=== PATIENT | female | born 1970 | race Caucasian/White ===

== ENCOUNTER 2020-05-11 01:02 | Outpatient (CLI) | payer MEDICARE, SELFPAY ==
[2020-05-11 18:37] LABS: SARS-CoV-2 RNA PCR Negative
== END 2020-05-11 01:03 | disposition home or self-care (01) ==
LOC: ANHCOVIDDT 01:03
PROVIDERS: PCP Internal Medicine Gastroenterology; Visit Provider Physical Medicine & Rehabilitation Pain Medicine
DX: Z01.812 Encounter for preprocedural laboratory examination (principal); Z20.828 Contact with and (suspected) exposure to other viral communicable diseases
CPT/HCPCS: 87635; C9803; U0003

== ENCOUNTER 2020-05-14 09:21 | Outpatient (CLI) | payer MEDICARE, SELFPAY ==
[2020-05-10 12:32] VITALS: BMI 36.6
--- NOTE | ~2020-05-14 | CT_ITS ---
EXAMINATION: 1. XR myelogram spine lumbosacral 2. CT lumbar spine w con DATE: 05/14/2020 11:11 INDICATION: Lumbar radiculopathy. Surgical staging. TECHNIQUE: The procedure including the risks, benefits, and alternatives was discussed with the patie nt. Risks discussed included spinal headache, cerebrospinal fluid leak, bleeding, and infection. The patient understood the risks and agreed to proceed. A timeout was performed to verify the patient' s name, date of , and procedure to be performed. The skin overlying the L2-L3 and L3-L4 levels was prepped and draped in usual sterile fashion. Subcutaneous 1% lidocaine was used for local anesth esia. A 22 gauge spinal needle was advanced under fluoroscopic guidance. The needle was removed and the entry site was cleaned and dressed. There were no immediate complications. Fluoroscopy exposure time was 0.4 minutes. The total number of images was 6. Computed tomography (CT) of the lumbar spine was performed without intravenous contrast. Automated exposure control and iterative reconstruction t echnique were employed. The dose-length product was 1909.85 mGy-cm. COMPARISON: Lumbar spine CT 12/29/2016, MRI 01/03/2016 FINDINGS: LUMBAR MYELOGRAM: Images demonstrate the needle at the L3-L4 level. There is indentation of the theca l sac at multiple disc levels which will be discussed in more detail on the postmyelogram CT. POST-MYELOGRAM LUMBAR SPINE CT: Bone alignment is normal. Vertebral body heights are normal. There is mildly decreased disc height at L3-L4. The following disc levels are specifically discussed: L1-L2: The disc does not extend beyond the endplate margin. There is mild bilateral facet joint osteo arthritis. There is no neural foraminal stenosis. There is no central canal stenosis. L2-L3: The disc does not extend beyond the endplate margin. There is mild bilateral facet joint osteo arthritis. There is no neural foraminal stenosis. There is no central canal stenosis. L3-L4: The disc is bulging. There is mild bilateral facet joint osteoarthritis. There is mild bilater al neural foraminal stenosis. There is mild central canal stenosis. L4-L5: The disc is bulging. There is mild bilateral facet joint osteoarthritis. There is mild bilater al neural foraminal stenosis. There is mild central canal stenosis. L5-S1: The disc is bulging. There is severe right and moderate left facet joint osteoarthritis. There is mild bilateral neural foraminal stenosis. There is mild central canal stenosis. IMPRESSION: 1. Mild lumbar spondylosis, stable from 01/03/2016. Reviewed, dictated and finalized at location A. IMPRESSION: 1. Mild lumbar spondylosis, stable from 01/03/2016.
[2020-05-14 09:49] LABS: Mean Platelet Volume 8.6 fl (7.4-10.4); Platelet Count Result 326 k/mm3 (150-375)
[2020-05-14 09:58] LABS: INR 0.9; Prothrombin Time 12.3 Seconds (11.1-14.7)
[2020-05-14 10:20] VITALS: BP 114/82; PULSE 83; RESP 20; O2SAT 98
[2020-05-14 10:45] VITALS: BP 124/80; PULSE 86; RESP 18; O2SAT 100
[2020-05-14 11:10] VITALS: BP 125/84; PULSE 77; RESP 20; O2SAT 100
[2020-05-14 12:10] VITALS: BP 131/79; PULSE 63; RESP 20; O2SAT 100
== END 2020-05-14 12:50 | disposition home or self-care (01) ==
PROVIDERS: Radiology Diagnostic Radiology; PCP Internal Medicine Gastroenterology; Visit Provider Physical Medicine & Rehabilitation Pain Medicine
DX: M54.16 Radiculopathy, lumbar region (principal)
CPT/HCPCS: 36415; 62304; 72132; 85049; 85610

== ENCOUNTER 2020-07-12 08:04 | Outpatient (CLI) | payer MEDICARE, SELFPAY ==
--- NOTE | ~2020-07-12 | XR_ITS ---
EXAMINATION: XR lumbar spine 2-3V EXAM DATE: 07/12/2020 08:40 INDICATION: Arthralgia, Hx Of Lower Back Injury X10 Yrs Ago. TECHNIQUE: Lumber spine frontal, lateral, lateral L5-S1 projections for interpretation. There is no prior study for comparison. FINDINGS: Gastric banding device. The vertebral bodies are aligned in the AP dimension. Vertebral daniel dy and disc heights are well-maintained. Mild diffuse facet arthropathy. Calcifications in the pelvis are believed to be phleboliths. IMPRESSION: Mild lumbar facet arthropathy. Reviewed, dictated and finalized at location A. MOLD COATER
--- NOTE | ~2020-07-12 | XR_ITS ---
EXAMINATION: XR hand LT 2V EXAM DATE: 07/12/2020 08:40 INDICATION: Arthralgia. Left hand pain. TECHNIQUE: Left hand frontal, lateral projections obtained and reviewed. Correlation is made to contr alateral hand same date. FINDINGS: Left metacarpal bones are unremarkable. There are no acute left hand fractures or dislocat ions identified. There is no subcutaneous gas. The soft tissue is unremarkable. There are no radi opaque foreign bodies. There are no bony erosions identified. IMPRESSION: 1. Unremarkable XR hand LT 2V exam. Reviewed, dictated and finalized at location A. 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
--- NOTE | ~2020-07-12 | XR_ITS ---
EXAMINATION: XR hand RT 2V EXAM DATE: 07/12/2020 08:40 INDICATION: Right hand arthralgia. TECHNIQUE: Frontal and lateral projections of the right hand. There is no prior study for compariso n. FINDINGS: There are no bony erosions identified. There are no acute right hand fractures or dislocat ions identified. There is no subcutaneous gas. The soft tissue is unremarkable. There are no radi opaque foreign bodies. IMPRESSION: 1. Unremarkable XR hand RT 2V exam. Reviewed, dictated and finalized at location A. 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
== END 2020-07-12 08:05 | disposition home or self-care (01) ==
LOC: ANHIMG 08:10
PROVIDERS: PCP Internal Medicine Gastroenterology; Visit Provider Physician Assistant Medical
DX: M54.5 Low back pain (principal); M25.542 Pain in joints of left hand; M25.541 Pain in joints of right hand
CPT/HCPCS: 72100; 73120

== ENCOUNTER → 2020-12-11 11:10 | Outpatient (CLI) | payer OTHER, MEDICARE, SELFPAY ==
--- NOTE | ~2020-12-11 | US_ITS ---
EXAMINATION: US renal BI DATE: 12/11/2020 12:05 INDICATION: Abnormal renal function. TECHNIQUE: Multiple ultrasound grayscale images of the kidneys were obtained. COMPARISON: Lumbar spine CT dated 05/14/2020 FINDINGS: The right kidney measures 11.4 x 4.1 x 4.5 cm. There is a duplicated right renal collecting system be tter appreciated on CT dated 05/14/2020 were there appears to be fusion adnexa renal pelvis . The left kidney measures 9.4 x 5.3 x 5.0 cm. The kidneys demonstrate normal echogenicity. There is no hydrone phrosis in either kidney. No stones identified. The bladder is normal. IMPRESSION: 1. 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 Otherwise normal kidneys without hydronephrosis. Reviewed, dictated and finalized at location A. IMPRESSION: 1. 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 Otherwise normal kidneys without hydronephrosis.
== END ==
PROVIDERS: PCP Internal Medicine Gastroenterology; Visit Provider Internal Medicine Nephrology
DX: R94.4 Abnormal results of kidney function studies (principal)
CPT/HCPCS: 76775

== ENCOUNTER → 2021-02-06 08:53 | Outpatient (CLI) | payer OTHER, MEDICARE, SELFPAY ==
--- NOTE | ~2021-02-06 | XR_ITS ---
XR finger 2nd RT min 2V DATE: 02/06/2021 09:27 INDICATION: Injury, pain TECHNIQUE: 4 views COMPARISON: 07/12/2020 right hand FINDINGS: No fracture or dislocation, periosteal reaction or bone destruction, radiopaque soft tissue foreign body. IMPRESSION: Negative Reviewed, dictated and finalized at location A. IMPRESSION: Negative
--- NOTE | ~2021-02-06 | XR_ITS ---
EXAMINATION: XR chest 2V 02/06/2021 09:27 INDICATION: Cough PROCEDURE: 2 view chest COMPARISON: No prior studies for comparison. FINDINGS: The lungs are clear. The cardiomediastinal silhouette is within normal limits. There are no pleural effusions. There is no pneumothorax suspected. IMPRESSION: 1: NO ACUTE CARDIOPULMONARY DISEASE. Reviewed, dictated and finalized at location A.
== END ==
PROVIDERS: Visit Provider Internal Medicine Gastroenterology
DX: R05 Cough (principal); S69.81XA Other specified injuries of right wrist, hand and finger(s), initial encounter
CPT/HCPCS: 71046; 73140

== ENCOUNTER 2021-11-07 09:05 | Outpatient (CLI) | payer MEDICARE, OTHER, SELFPAY ==
--- NOTE | ~2021-11-07 | XR_ITS ---
EXAMINATION: XR chest 2V 11/07/2021 09:23 INDICATION: Shortness of breath PROCEDURE: 2 view chest COMPARISON: 02/06/2021 FINDINGS: The lungs are clear. The cardiomediastinal silhouette is within normal limits. There are no pleural effusions. There is no pneumothorax suspected. IMPRESSION: 1: NO ACUTE CARDIOPULMONARY DISEASE. Reviewed, dictated and finalized at location B.
== END 2021-11-07 09:06 | disposition home or self-care (01) ==
LOC: ANHIMG 09:09
PROVIDERS: PCP Internal Medicine Gastroenterology; Visit Provider Internal Medicine Gastroenterology
DX: R06.00 Dyspnea, unspecified (principal)
CPT/HCPCS: 71046

== ENCOUNTER 2021-11-14 08:20 | Emergency (ER) | payer OTHER, MEDICARE, SELFPAY ==
[2021-11-14] VITALS (14 sets, daily range): BP systolic 107–112; BP diastolic 72–86; PULSE 93–111; RESP 14–29; TEMP 36.4; O2SAT 100
--- NOTE | ~2021-11-14 | CT_ITS ---
EXAMINATION: CT brain wo con INDICATION: Dizziness COMPARISON: 07/24/2017 TECHNIQUE: Standard unenhanced head CT. The dose-length product (DLP) was 605.33 mGy-cm. The mA was a djusted according to patient size. Iterative reconstruction technique was employed. FINDINGS: There is no intracranial hemorrhage, acute infarction, or abnormal mass lesion. The ventric les are normal. There is no abnormal mass effect or midline shift. The rondon-white matter differentiat ion is normal. The basal cisterns are patent. The orbits are normal. The paranasal sinuses, mastoids and calvarium are normal. IMPRESSION: 1. No acute intracranial abnormality. Reviewed, dictated and finalized at location B.
--- NOTE | ~2021-11-14 | CT_ITS ---
EXAMINATION: CTA chest PE protocol DATE: 11/14/2021 10:13 INDICATION: Shortness of breath. Elevated d-dimer. TECHNIQUE: Computed tomography angiography (CTA) of the chest was performed with 100 mL Omnipaque-350 intravenous contrast timed to evaluate the pulmonary arteries. Coronal maximum intensity projection 3D-reconstructions were created by the technologist. Automated exposure control and iterative reconst ruction technique were employed. Exam dose: 644.21 mGy-cm total exam DLP. COMPARISON: 11/14/2021 AP and lateral chest FINDINGS: There is diagnostic contrast enhancement of the pulmonary arteries and no evidence of pulmo nary embolism. No thoracic aortic aneurysm or dissection. No hilar or mediastinal mass lesion or lymphadenopathy. No pulmonary infiltrate or consolidation or pulmonary mass lesion. Adrenal glands and included upper abdominal structures are unremarkable with the exception of a lap b and. Degenerative spurring of the thoracic spine. No suspicious osteolytic or osteoblastic lesions. IMPRESSION: No evidence of pulmonary embolus Reviewed, dictated and finalized at Location A. Reviewed, dictated and finalized at location A.
--- NOTE | ~2021-11-14 | XR_ITS ---
EXAMINATION: XR chest 2V DATE: 11/14/2021 09:03 INDICATION: Shortness of breath, cough and dizziness TECHNIQUE: frontal and lateral views of the chest were obtained. COMPARISON: Chest radiograph dated 11/07/2021 FINDINGS: The lungs remain clear with no focal airspace opacities, pulmonary edema, pleural effusion or pneumot horax. The cardiomediastinal silhouette is normal. Mild thoracic spondylosis. IMPRESSION: 1. No acute cardiopulmonary disease. Reviewed, dictated and finalized at location A.
--- NOTE | 2021-11-14 08:43 | ECG_ITS ---
Measurements Intervals [place] Rate: 97 P: 43 [place]: 156 QRS: 8 QRSD: 92 T: 10 QT: 359 QTc: 458 Interpretive Statements SINUS RHYTHM NONSPECIFIC T-WAVE ABNORMALITY. ABNORMAL ECG NO PREVIOUS ECG AVAILABLE FOR COMPARISON Electronically Signed On 11-14-2021 16:21:26 CDT by Lalo Bernard M.D.
[2021-11-14 09:00] LABS: Basophils Percent Auto 0.2 % (0.2-1.2); Eosinophils Absolute Auto 0.1 K/mm3 (0-0.3); Eosinophils Percent Auto 0.9 % (0-4.4); Hematocrit 38.4 % (37.0-47.0); Immature Granulocyte Absolute 0.04 K/mm3 (0.00-0.031); Immature Granulocyte Percent A 0.5 % (0-0.5); Lymphocytes Absolute Auto 1.38 K/mm3 (0.9-3.2); Lymphocytes Percent Auto 16.8 % (18.3-44.2); Mean Corpuscular HGB Conc 33.9 g/dl (32-36); Mean Corpuscular Volume 91.6 fl (80-100); Mean Platelet Volume 8.6 fl (7.4-10.4); Monocytes Absolute Auto 0.7 K/mm3 (0.1-0.6); Monocytes Percent Auto 8.6 % (2.6-8.5); Platelet Count Result 330 k/mm3 (150-375); Red Blood Count 4.19 M/mm3 (4.2-5.4); Red Cell Distribution Width 13.1 % (11.5-14.5); White Blood Count 8.2 K/mm3 (4.5-10.0)
[2021-11-14 09:20] LABS: Alanine Aminotransferase 21 U/L (4-35); Albumin Level 4.5 g/dL (3.5-5.1); Alkaline Phosphatase 116 U/L (38-126); Anion Gap 9 mmol/L (8-16); Aspartate Amino Transferase 26 U/L (14-36); Bilirubin,Total 0.7 mg/dL (0.2-1.3); Blood Urea Nitrogen 10 mg/dL (7-17); Calcium 9.2 mg/dL (8.4-10.2); Carbon Dioxide 27 mmol/L (22-30); Chloride 100 mmol/L (98-107); Estimated CRCL calculation 56 ml/min; Estimated Glomerular Filt Rate 59; Glucose 99 mg/dL (65-110); Potassium 3.1 mmol/L (3.4-5.0); Sodium 136 mmol/L (137-145)
--- NOTE | 2021-11-14 09:28 | ED.SOB ---
HPI - SOB/Dyspnea General Chief Complaint: Shortness of Breath/Dyspnea Stated Complaint: sob, lightheaded Time Seen by Provider: 11/14/21 09:02 Source: patient Mode of arrival: ambulatory Limitations: no limitations History of Present Illness HPI Narrative: 51-year-old female presents today with 2 weeks of shortness of breath, nausea, runny nose, allergy symptoms, and dizziness. Patient also states that she has a dry cough. Patient denies any chest pain, fevers, body aches, vomiting, chills, or recent sick contacts. Patient is on medication for hypertension, high cholesterol, diabetes, and thyroid issues. Patient states the only new medication is her Rybelsus but she started that about 4 to 5 months ago. Patient states the dose was increased about 2 months ago. Related Data Home Medications Medication Instructions Recorded Confirmed atorvastatin 1 tablet PO HS 05/10/20 05/10/20 bupropion HCl 1 tablet PO DAILY 05/10/20 05/10/20 diclofenac sodium 75 mg PO BID 05/10/20 05/10/20 gabapentin 300 mg PO QID PRN 05/10/20 05/10/20 hydrocodone-acetaminophen 1 tablet PO QID 05/10/20 05/10/20 levothyroxine 100 mcg PO DAILY 05/10/20 05/10/20 lisinopril 1 tablet PO DAILY 05/10/20 05/10/20 lurasidone [Latuda] 80 mg PO HS 05/10/20 05/10/20 phentermine 30 mg PO DAILY 05/10/20 05/10/20 trazodone 100 mg PO HS 05/10/20 05/10/20 Allergies Allergy/AdvReac Type Severity Reaction Status Date / Time codeine Allergy Unknown Vomiting Verified 05/10/20 12:33 Review of Systems Review of Systems: CONSTITUTIONAL: Denies fever, chills, or sweats. EYES: Denies visual changes, redness, or discharge. ENT: Rhinorrhea, nasal drainage. Denies congestion, sore throat, or otalgia. CARDIOVASCULAR: Denies chest pain, palpitations, or edema. RESPIRATORY: Dyspnea and cough. GASTROINTESTINAL: Denies abdominal pain, nausea, vomiting, or diarrhea. GENITOURINARY: Denies dysuria or hematuria. SKIN: Denies rash or itching. MUSCULOSKELETAL: Denies back pain, joint pain, or myalgia. NEUROLOGIC: Denies headache, numbness, dizziness, or weakness. PSYCHIATRIC: Denies anxiety or depression. [facility] Past Medical History Medical History (Updated 11/14/21 @ 12:39 by Sharon Rey APRN) Diabetes type 2, controlled Hyperlipidemia Hypertension Hypothyroidism Exam Narrative: GENERAL: Well-appearing, well-nourished, and in no acute distress. HEAD: Normocephalic, atraumatic. EYES: PERRLA and EOMI. ENT: Nares clear, no rhinorrhea or epistaxis. Mucous membranes moist. Oropharynx without tonsillar hypertrophy exudate or other lesions. Bilateral TMs pearly rondon nonbulging NECK: Supple. No adenopathy or masses. No carotid bruits or JVD CHEST: Clear to auscultation. No respiratory distress. No wheezes rales or rhonchi HEART: Regular rate and rhythm. No murmur heard. Normal peripheral pulses. ABDOMEN: Soft, nontender, nondistended, normal active bowel sounds. EXTREMITIES: Normal range of motion. No edema. SKIN: Warm, dry, no rash. NEURO: No focal deficits. Alert and oriented x3. PSYCH: Normal mood and affect. Course Course Emergency Course: Labs and CT scan reviewed with patient. CT negative for PE, pneumonia. Patient feeling better after IV fluids. Plan to treat for allergies, congestion. Patient to follow-up with primary for repeat labs. May return for any new or worsening symptoms. Patient in agreement with plan of care. Vital Signs Vital signs: Vital Signs Respiratory Rate 27 H 11/14/21 08:25 Blood Pressure 107/85 11/14/21 08:25 Pulse Oximetry 100 11/14/21 08:25 Temperature 36.4 C L 11/14/21 08:32 Pulse Rate 95 11/14/21 11:01 Respiratory Rate 16 11/14/21 11:01 Blood Pressure 110/86 11/14/21 09:59 Pulse Oximetry 100 11/14/21 08:46 MDM - SOB/Dyspnea MDM Narrative Medical decision making narrative: HPI as noted. D-dimer elevated CT shows no PE. Patient does endorse allergies have picked up in the last 1 to 2 weeks. Will d
[2021-11-14 09:48] LABS: NT Pro B Type Natriuretic Pept 16 pg/mL (5-100)
[2021-11-14 09:49] LABS: Troponin I < 0.012 ng/mL (0.000-0.034)
[2021-11-14 09:53] LABS: D Dimer 1.16 ug/mL (<0.48)
--- NOTE | 2021-11-14 10:11 | PC.NURSE ---
Patient to radiology.
[2021-11-14 10:42] LABS: Add Urine Microscopic? YES; Appearance Urine Cloudy (Clear); Bacteria Urine Trace /hpf; Bilirubin Urine Negative (Negative); Blood Urine Negative (Negative); Color Urine Yellow (Yellow); Glucose Urine UA Negative (Negative); Ketones Urine Negative (Negative); Leukocyte Esterase Ur 2+ LEU/UL (Negative); Mucus Urine Rare /lpf; Nitrate Urine Negative (Negative); Protein Urine Negative (Negative); Specific Grav Ur 1.024 (1.001-1.035); Squamous Epithelial Cell Urine Few /hpf (Few); WBC Urine 21-30 /hpf
[2021-11-14] MEDS: SODIUM CHLORIDE 0.9% IV 1,000 ML 999 ML IV CONT (11:00)
[2021-11-14] MEDS: POTASSIUM CHLORIDE 20 MEQ TABLET 40 MEQ PO (11:00)
== END 2021-11-14 12:55 | disposition home or self-care (01) ==
PROVIDERS: Emergency Medicine; Emergency Provider Nurse Practitioner Family; PCP Internal Medicine Gastroenterology
DX: J30.2 Other seasonal allergic rhinitis (principal); R06.00 Dyspnea, unspecified; R42 Dizziness and giddiness; E11.9 Type 2 diabetes mellitus without complications; E78.5 Hyperlipidemia, unspecified; I10 Essential (primary) hypertension; E03.9 Hypothyroidism, unspecified; R94.31 Abnormal electrocardiogram [ECG] [EKG]; R82.998 Other abnormal findings in urine
CPT/HCPCS: 36415; 70450; 71046; 71275; 80053; 81001; 83880; 84443; 84484; 85025; 85380; 87086; 87088; 93005; 96360; 99284; A9270; J7030; Q9967

== ENCOUNTER 2022-01-13 08:12 | Emergency (ER) | payer OTHER, MEDICARE, SELFPAY ==
[2022-01-13] VITALS (7 sets, daily range): BP systolic 105–111; BP diastolic 76–77; PULSE 94–106; RESP 16; TEMP 36.3; O2SAT 99–100
--- NOTE | ~2022-01-13 | CT_ITS ---
EXAMINATION: CT abdomen pelvis w con DATE: 01/13/2022 09:48 INDICATION: Lower abdominal pain radiating to the back TECHNIQUE: Computed tomography (CT) of the abdomen and pelvis was performed with 75 mL Omnipaque-300 intravenous contrast. Automated exposure control and iterative reconstruction technique were employed . The dose-length product was 364.92 mGy-cm. COMPARISON: None FINDINGS: Lung bases are clear. Heart size is normal. No pericardial or pleural effusion. Adjustable laparoscop ic band in expected position with reservoir in the supraumbilical subcutaneous tissues. Liver, gallbl adder, spleen, pancreas, bilateral adrenal glands and left kidney are normal. 1.3 cm right renal cyst . Partially duplicated right renal collecting system which fuses at the level of an extrarenal pelvis . Nonobstructing 1 mm stone at the upper pole of the right kidney. Multiple phleboliths in the lower abdomen and pelvis. No evident ureteral stones. Bladder is normal. The uterus is not identified and h as likely been surgically resected. Bowels including the appendix are normal. No free intraperitoneal gas or fluid. No pathologically enlarged abdominal or pelvic lymphadenopathy. Mild lower thoracic sp ondylosis. Severe facet osteoarthritis on the right at L5-S1. Osteitis pubis. IMPRESSION: 1. No acute intra-abdominal/pelvic process. Specifically normal appendix. 2. Nonobstructing 1 mm right renal stone. 3. Stopper scopic gastric banding in expected position. Reviewed, dictated and finalized at location D.
[2022-01-13 08:53] LABS: Basophils Percent Auto 0.6 % (0.2-1.2); Eosinophils Percent Auto 0.6 % (0-4.4); Hematocrit 38.4 % (37.0-47.0); Hemoglobin 12.7 g/dL (12.0-15.0); Immature Granulocyte Absolute 0.02 K/mm3 (0.00-0.031); Immature Granulocyte Percent A 0.4 % (0-0.5); Lymphocytes Absolute Auto 1.37 K/mm3 (0.9-3.2); Lymphocytes Percent Auto 26.6 % (18.3-44.2); Mean Corpuscular HGB Conc 33.1 g/dl (32-36); Mean Corpuscular Hemoglobin 30.5 pg (26-34); Mean Corpuscular Volume 92.1 fl (80-100); Mean Platelet Volume 8.9 fl (7.4-10.4); Monocytes Absolute Auto 0.6 K/mm3 (0.1-0.6); Monocytes Percent Auto 11.8 % (2.6-8.5); Neutrophils Absolute Auto 3.1 K/mm3 (1.3-6.7); Platelet Count Result 342 k/mm3 (150-375); Red Blood Count 4.17 M/mm3 (4.2-5.4); Red Cell Distribution Width 13.5 % (11.5-14.5); White Blood Count 5.2 K/mm3 (4.5-10.0)
[2022-01-13] MEDS: LACTATED RINGERS 1,000 ML 999 ML IV CONT (08:57)
[2022-01-13] MEDS: MORPHINE SULFATE (*CRX) 4 MG/ML INJ IV PUSH (08:57)
[2022-01-13] MEDS: ONDANSETRON INJ 4 MG/2 ML VIAL IV PUSH (08:58)
[2022-01-13 09:10] LABS: Alanine Aminotransferase 19 U/L (6-35); Albumin Level 4.5 g/dL (3.5-5.1); Alkaline Phosphatase 100 U/L (38-126); Anion Gap 11 mmol/L (8-16); Aspartate Amino Transferase 31 U/L (14-36); Bilirubin,Total 0.7 mg/dL (0.2-1.3); Blood Urea Nitrogen 13 mg/dL (7-17); Calcium 9.1 mg/dL (8.4-10.2); Carbon Dioxide 27 mmol/L (22-30); Chloride 96 mmol/L (98-107); Estimated CRCL calculation 55 ml/min; Estimated Glomerular Filt Rate 59; Glucose 82 mg/dL (65-110); Lipase 99 U/L (23-300); Potassium 2.8 mmol/L (3.4-5.0); Sodium 134 mmol/L (137-145)
[2022-01-13 09:13] LABS: Appearance Urine Slightly Cloudy (Clear); Bilirubin Urine 1+ (Negative); Blood Urine Negative (Negative); Color Urine Yellow (Yellow); Glucose Urine UA Negative (Negative); Ketones Urine Trace mg/dL (Negative); Leukocyte Esterase Ur Negative LEU/UL (Negative); Nitrate Urine Positive (Negative); Protein Urine Trace mg/dL (Negative); Specific Grav Ur 1.015 (1.001-1.035)
[2022-01-13 09:17] LABS: Add Urine Microscopic? YES; Bacteria Urine Trace /hpf; Mucus Urine Rare /lpf; RBC Urine 0-2 /hpf (0-2); Squamous Epithelial Cell Urine Few /hpf (Few)
[2022-01-13 09:24] LABS: Lactic Acid Reflex 1.2 mmol/L (0.7-2.0)
--- NOTE | 2022-01-13 09:30 | PC.NURSE ---
Pt to CT.
--- NOTE | 2022-01-13 09:44 | ED.ABDPAIN ---
HPI - Abdominal Pain General Chief Complaint: Abdominal Pain Stated Complaint: abd pain Time Seen by Provider: 01/13/22 08:40 Source: patient and RN notes reviewed Mode of arrival: ambulatory Limitations: no limitations History of Present Illness HPI narrative: This 51 year old female who presents for evaluation of lower abdominal pain. Patient states she has been having lower abdominal and lower back pain for 2 months. This pain has been constant . It is associated nausea, decrease appetite and decreased urine and increased urinary frequency. She has been evaluated by his GI specialist in [place] and she is scheduled for colonoscopy and endoscopy. Her pain has worsened over the past 2 days so she has come to ER for evaluation . Her back pain is worse with laying on her back and she had to lay on pill to help with pain. She has tried ibuprofen for her pain without relief. She reports she has lost 35 pounds in the past 2 months. Pain scale (0-10): 8 Quality: stabbing Related Data Home Medications Medication Instructions Recorded Confirmed atorvastatin 1 tablet PO HS 05/10/20 05/10/20 bupropion HCl 1 tablet PO DAILY 05/10/20 05/10/20 diclofenac sodium 75 mg 75 mg PO BID 05/10/20 05/10/20 tablet,delayed release gabapentin 300 mg capsule 300 mg PO QID PRN Pain 05/10/20 05/10/20 hydrocodone 10 mg-acetaminophen 1 tablet PO QID 05/10/20 05/10/20 325 mg tablet levothyroxine 100 mcg tablet 100 mcg PO DAILY 05/10/20 05/10/20 lisinopril 1 tablet PO DAILY 05/10/20 05/10/20 lurasidone 80 mg tablet (Latuda) 80 mg PO HS 05/10/20 05/10/20 phentermine 30 mg capsule 30 mg PO DAILY 05/10/20 05/10/20 trazodone 100 mg tablet 100 mg PO HS 05/10/20 05/10/20 Allergies Allergy/AdvReac Type Severity Reaction Status Date / Time codeine Allergy Unknown Vomiting Verified 01/13/22 08:49 Review of Systems Review of Systems: All systems reviewed & are unremarkable except as noted in HPI and below Eyes: Eyes: Denies blurry vision ENT: Denies nasal congestion and Denies sinus pressure Cardiovascular: Cardiovascular: Denies chest pain, Denies rapid heart rate, Denies leg edema and Denies dyspnea Respiratory: Respiratory: Denies hemoptysis and Denies dyspnea Gastrointestinal: Gastrointestinal: Reports abdominal pain and Reports nausea Genitourinary: Genitourinary: Reports dysuria Musculoskeletal: Musculoskeletal: Reports back pain, Denies arthralgias and Denies joint swelling Neurologic: Denies Abnormal speech present, Denies focal weakness and Denies numbness [facility] Past Medical History Medical History (Updated 01/13/22 @ 10:58 by Milagros Varner MD) Diabetes type 2, controlled Hyperlipidemia Hypertension Hypothyroidism Surgical History Surgical History (Updated 01/13/22 @ 18:31 by Milagros Varner MD) H/O: hysterectomy Hx of laparoscopic gastric banding Social History Social History (Updated 01/13/22 @ 09:50 by Milagros Varner MD) Smoking status: Never smoker Exam Const: General: no acute distress and alert Orientation/consciousness: patient oriented x3 Limitations: no limitations HENMT: Face and sinus: normal facial exam Mouth: Yes Normal oral and palatal mucosa present and Yes lip normal Eyes: Pupils: Equal, round and reactive pupils present EOM: EOMs intact bilaterally Resp: Effort & Inspection: normal respiratory effort Auscultation: clear to auscultation bilaterally Cardio: Rate: regular rate Rhythm: regular rhythm Heart sounds: no murmurs GI: GI Palp: Yes Soft to palpation, Yes Tenderness to palpation present (GI) (LLQ, suprapubic, RLQ), No Guarding due to palpation present (GI) and No Rigid due to palpation Auscultation: normal bowel sounds Back/Spine/Pelvis: Back: no CVA tenderness Skin: General skin exam: normal color Neuro: General: patient oriented x3 and moves all extremities Cranial nerves: Yes Nystagmus not present Psych: Mental Status: mental status
[2022-01-13] MEDS: POTASSIUM CHLORIDE 20 MEQ TABLET 40 MEQ PO (10:56)
== END 2022-01-13 11:18 | disposition home or self-care (01) ==
PROVIDERS: Emergency Provider General Practice; PCP Internal Medicine Gastroenterology
DX: N39.0 Urinary tract infection, site not specified (principal); E87.6 Hypokalemia; R10.32 Left lower quadrant pain; R10.31 Right lower quadrant pain; E11.9 Type 2 diabetes mellitus without complications; E78.5 Hyperlipidemia, unspecified; I10 Essential (primary) hypertension; E03.9 Hypothyroidism, unspecified; Z98.84 Bariatric surgery status; N20.0 Calculus of kidney
CPT/HCPCS: 36415; 74177; 80053; 81001; 83605; 83690; 83735; 85025; 96361; 96374; 96375; 99284; A9270; J2270; J2405; J7120; Q9967

== ENCOUNTER 2023-10-01 14:42 | Outpatient (CLI) | payer OTHER, MEDICARE, SELFPAY ==
--- NOTE | ~2023-10-01 | CT_ITS ---
EXAMINATION: CT abdomen pelvis w con DATE: 10/01/2023 15:07 INDICATION: Left lower quadrant abdominal pain. TECHNIQUE: Computed tomography (CT) of the abdomen and pelvis was performed with 100 mL Omnipaque 350 intravenous contrast. Automated exposure control and iterative reconstruction technique were employe d. The dose-length product was 1281.59 mGy-cm. COMPARISON: CT abdomen and pelvis 01/13/2022 FINDINGS: The visualized portions of the lung bases demonstrate mild atelectasis. No pleural effusion . The heart size is normal. No pericardial effusion. There is a lap band around the proximal stomach in expected position. There is an 8 mm cyst in the liver. There are changes of cholecystectomy. The s pleen, pancreas, and adrenal glands are normal. There are cysts in the kidneys measuring up to 13 mm on the right. There are no dilated loops of bowel. The appendix is normal. There are no pathologicall y enlarged lymph nodes. There is no free intraperitoneal fluid. There is mild thoracic and lumbar spo ndylosis. IMPRESSION: 1. No etiology for the patient's symptoms. Reviewed, dictated and finalized at location E. 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
[2023-10-01 15:02] LABS: Estimated Glomerular Filt Rate 58
== END 2023-10-01 14:43 | disposition home or self-care (01) ==
LOC: ANHIMG 14:42
PROVIDERS: PCP Internal Medicine Gastroenterology; Visit Provider Nurse Practitioner Family
DX: R10.9 Unspecified abdominal pain (principal); R19.5 Other fecal abnormalities
CPT/HCPCS: 74177; Q9967

== ENCOUNTER 2024-08-09 12:42 | Outpatient (CLI) | payer OTHER, MEDICARE, SELFPAY ==
--- NOTE | ~2024-08-09 | CT_ITS ---
CT of the Abdomen and Pelvis: Indication: Abdominal pain Technique: 2.5 mm axial scans were obtained through the abdomen and pelvis following intravenous adm inistration of 100 cc of Omnipaque 350. Dose reduction technique was used on this scan by utilizing a utomated exposure control and iterative reconstruction technique. The dose-length product (DLP) was 1 372.25 mGy-cm. COMPARISON: 10/01/2023 Findings: Scans through the lung bases are unremarkable. The liver, spleen, pancreas, adrenals and kidneys are within normal limits. Cholecystectomy clips are present. No evidence of aortic aneurysm. No lymphadenopathy. No bowel obstruction or bowel wall thickening. Gastric lap band present. There is no evidence to sugg est acute appendicitis. Images through the pelvis were performed. Urinary bladder unremarkable. No pelvic mass seen. No ascit es. Impression: No acute abnormalities seen. Reviewed, dictated and finalized at [facility]. CUTTER Impression: No acute abnormalities seen.
[2024-08-09 13:04] LABS: Estimated Glomerular Filt Rate > 60
== END 2024-08-09 12:43 | disposition home or self-care (01) ==
LOC: ANHIMG 12:43
PROVIDERS: PCP Internal Medicine; Visit Provider Nurse Practitioner Family
DX: R10.9 Unspecified abdominal pain (principal); R11.0 Nausea
CPT/HCPCS: 74177; Q9967

== ENCOUNTER 2024-09-27 09:49 | Outpatient (CLI) | payer BC, MEDICARE, SELFPAY ==
--- NOTE | ~2024-09-27 | MR_ITS ---
EXAMINATION: MR shoulder LT wo con DATE: 09/27/2024 10:21 INDICATION: Rotator cuff rupture TECHNIQUE: Magnetic resonance imaging (MRI) of the left shoulder was performed without intravenous co ntrast. Sequences included axial PD-weighted FS FSE, coronal oblique PD-weighted FS FSE, coronal obli que T2-weighted FS FSE, sagittal PD-weighted FS FSE, and sagittal T1-weighted SE. COMPARISON: None. FINDINGS: Coracoacromial arch: The acromion undersurface is minimally curved in morphology (type I-II). The coracoacromial ligament is normal. Moderate acromioclavicular osteoarthritis. Rotator cuff: There are suture anchors at the anterior margin of the superior facet of the greater tuberosity and c ephalad aspect of the lesser tuberosity likely for prior supraspinatus and subscapularis tendon repai rs. There is mild supraspinatus and subscapularis tendinopathy without tear. The infraspinatus and te res minor tendons are normal. Normal rotator cuff muscle bulk and signal. Biceps tendon, glenoid labrum and glenohumeral cartilage: The long head biceps tendon extends towards a second screw at the lesser tuberosity with absent intra -articular portion of the long head biceps tendon consistent with prior bicipital tenodesis. Glenoid labrum is normal. Glenohumeral cartilage is normal. Fluid: Physiologic amount of fluid in the glenohumeral joint. No loose osteochondral bodies. No abnormal fl uid signal in the subacromial/subdeltoid bursa to suggest bursitis. Bones: Normal marrow signal with no edema, fracture or abnormal marrow replacing process. IMPRESSION: 1. Postoperative change of likely prior bicipital tenodesis and supraspinatus and subscapularis tendo n repairs. No evident residual or recurrent rotator cuff repair. 2. Moderate right acromioclavicular osteoarthritis. Reviewed, dictated and finalized at location A. MACY STUDENT IMPRESSION: 1. Postoperative change of likely prior bicipital tenodesis and supraspinatus a nd subscapularis tendon repairs. No evident residual or recurrent rotator cuff repair. 2. Moderate right acromioclavicular osteoarthritis.
== END 2024-09-27 09:50 | disposition home or self-care (01) ==
LOC: GOSHIMG 09:50
PROVIDERS: PCP Internal Medicine; Visit Provider Orthopaedic Surgery
DX: M75.102 Unspecified rotator cuff tear or rupture of left shoulder, not specified as traumatic (principal); Z98.890 Other specified postprocedural states; M19.012 Primary osteoarthritis, left shoulder
CPT/HCPCS: 73221

== ENCOUNTER 2024-11-13 06:53 | Emergency (ER) | payer OTHER, BC, MEDICARE, SELFPAY ==
--- NOTE | ~2024-11-13 | XR_ITS ---
EXAMINATION: XR lumbar spine 2-3V DATE: 11/13/2024 08:15 INDICATION: Back pain. Fall. TECHNIQUE: 3 views of lumbar spine were obtained. COMPARISON: Lumbar spine radiographs 07/12/2020 FINDINGS: There is 3 degrees dextrocurvature of thoracolumbar spine. Vertebral body heights and inter vertebral disc heights are normal. There is multilevel facet joint osteoarthritis, severe on the righ t at L5-S1. Surgical clips in the right upper quadrant are likely from cholecystectomy. A lap band is noted. IMPRESSION: 1. Lumbar facet joint osteoarthritis. Reviewed, dictated and finalized at location A.
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
--- OUTSIDE RECORDS SUMMARY | 2024-11-13 06:56 | XMS_ITS | Data Portability ---
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 Details Recorded Time 65231 codeine medicatio n vomiting moderate Not available 10/21/2022 2670 RxNorm Not Available [facility] 3 08:55:01 19000 lidocaine medicatio n vomiting severe Not available 10/21/2022 6387 RxNorm Not Available [facility] 3 08:55:01 29728 amoxicill in medicatio n Not available Not available Not available 10/21/2022 723 RxNorm Not Available [facility] 3 08:55:01 Medications Name Sig Start Date Stop Date Status Note LastModified by Organization Details LastModified Time cyclobenza ibeth 10 mg tablet 05/28 completed Not Available Not Available Not Available amoxicilli n 500 mg capsule TAKE 2 CAPSULES BY MOUTH IMMEDIAT SARAHI THEN 1 CAPSULE BY MOUTH THREE TIMES DAILY UNTIL ALL TAKEN 05/31 /2022 completed Not Available Not Available Not Available atorvastat in 40 mg tablet TAKE 1 TABLET BY MOUTH EVERY EVENING active Not Available Not Available No t Available methocarba mol 500 mg tablet 12/25 completed Not Available Not Available Not Available primidone 50 mg tablet TAKE 1 TABLET BY MOUTH TWICE DAILY 02/25 completed Not Available Not Available Not Available prednisone 10 mg tablet Take by oral route. 07/27 completed Not Available Not Available Not Available venlafaxin e ER 75 mg capsule,ex tended release 24 hr TAKE 1 CAPSULE BY MOUTH EVERY DAY IN THE MORNING 03/29 completed Not Available Not Available Not Available venlafaxin e 75 mg tablet active Not Available Not Available Not Available clonidine 0.1 mg/24 hr weekly transderma l patch 05/30 completed Not Available Not Available Not Available citalopram 40 mg tablet 05/30 completed Not Available Not Available Not Available trazodone 50 mg tablet TAKE 1-2 TABLETS AT BEDTIME 01/20 completed Not Available Not Available Not Available atorvastat in 10 mg tablet TAKE 1 TABLET BY MOUTH DAILY--P t. needs to call office to schedule an apt. active Not Available Not Available No t Available azithromyc in 250 mg tablet Take 2 TABLEts the first day then 1/day 08/14 completed Not Available Not Available Not Available alprazolam 1 mg tablet 05/30 completed Not Available Not Available Not Available fluconazol e 150 mg tablet TAKE 1 TABLET BY MOUTH ONE DOSE 12/20 completed Not Available Not Available Not Available sumatripta n 100 mg tablet TAKE 1 TABLET BY MOUTH AT ONSET OF HEADACHE . MAY REPEAT IN 2 HOURS IF HEADACHE PERSISTS . NO MORE THAN 2 TABLETS IN 24 HOURS active Not Available Not Available No t Available OxyContin 20 mg tablet,ext ended release active Not Available Not Available Not Available hydrocodon e 5 mg-acetami nophen 325 mg tablet TAKE 1 TABLET BY MOUTH EVERY 6 HOURS 03/29 completed Not Available Not Available Not Available meloxicam 15 mg tablet TAKE 1 TABLET BY MOUTH EVERY DAY 2023 active Not Available Not Available Not Avai lable phenazopyr idine 200 mg tablet TAKE 1 TABLET BY MOUTH 3 TIMES A DAY FOR 2 DAYS 12/20 completed Not Available Not Available Not Available ondansetro n HCl 4 mg tablet 12/20 completed Not Available Not Available Not Available clonazepam 0.5 mg tablet 08/26 completed Not Available Not Available Not Available rizatripta n 10 mg tablet TAKE 1 TABLET BY MOUTH NEEDED FOR MIGRAINE . MAY REPEAT 1 TABLET IN 2 HOURS IF NEEDED active Not Available Not Available No t Available sertraline 100 mg tablet TAKE 1 & 1/2 TABLETS EVERY DAY 12/20 completed Not Available Not Available Not Available quetiapine 200 mg tablet TAKE 1 TABLET BY MOUTH EVERY DAY 12/20 completed Not Available Not Available Not Available clonazepam 1 mg tablet Take 1 tablet 3 times a day by oral route. 12/20 completed Not Available Not Available Not Available venlafaxin e ER 150 mg capsule,ex tended release 24 hr TAKE 1 TABLET BY MOUTH EVERY DAY DIRECTED 03/29 completed Not Available Not Available Not Available topiramate 25 mg tablet 12/20 completed Not Available Not Available Not Available metronidaz ole 500 mg tablet TAKE 1 TABLET BY MOUTH TWICE A DAY FOR 2 WEEKS 12/20 completed Not Available Not Available Not Available hydroxyzin e HCl 50 mg tablet TAKE ONE TABLET BY MOUTH DAILY AT BEDTIME NEEDED 01/20 completed Not Available Not Available Not Available phentermin e 37.5 mg tablet TAKE 1 TABLET BY MOUTH EVERY DAY 12/20 completed Not Available Not Available Not Available amlodipine 5 mg tablet TAKE 1 TABLET BY MOUTH DAILY active Not Available Not Available No t Available ciprofloxa diego 500 mg tablet TAKE 1 TABLET BY MOUTH TWICE A DAY FOR 2 WEEKS. DO NOT TAKE TIZANIDI NE WHILE ON CIPRO. 12/20 completed Not Available Not Available Not Available hydrocodon e 10 mg-acetami nophen 325 mg tablet TAKE 1 TABLET BY MOUTH 4 TIMES DAILY NEEDED 12/20 completed Not Available Not Available Not Available omeprazole 40 mg capsule,de layed release TAKE 1 CAPSULE BY MOUTH DAILY active Not Available Not Available No t Available liothyroni ne 5 mcg tablet TAKE 2 TABLETS BY MOUTH EVERY DAY ON AN EMPTY STOMACH active Not Available Not Available No t Available tramadol 50 mg tablet TAKE 1 TABLET BY MOUTH THREE TIMES DAILY NEEDED 01/20 completed Not Available Not Available Not Available quetiapine 100 mg tablet TAKE 1 TABLET EVERY DAY 12/20 completed Not Available Not Available Not Available phentermin e 30 mg capsule TAKE 1 CAPSULE BY MOUTH DAILY 08/26 completed Not Available Not Available Not Available lamotrigin e 25 mg tablet 12/20 completed Not Available Not Available Not Available oxycodone 15 mg tablet TAKE 1 TABLET BY MOUTH 4 TIMES A DAY 08/26 completed Not Available Not Available Not Available baclofen 20 mg tablet TAKE 1 TABLET BY MOUTH 3 TIMES A DAY 12/20 completed Not Available Not Available Not Available ketorolac 10 mg tablet 05/30 completed Not Available Not Available Not Available levothyrox ine 75 mcg tablet Take 1 tablet every day by oral route. active Not Available Not Available No t Available prednisone 10 mg tablets in a dose pack Take 1 tab by mouth, 3 times a day for 3 daysTake 1 tab by mouth 2 times a day for 2 daysTake 1 tab by mouth once a day for 1 day 07/27 completed Not Available Not Available Not Available levothyrox ine 100 mcg tablet TAKE 1 TABLET BY MOUTH EVERY DAY active Not Available Not Available No t Available alprazolam 0.5 mg tablet Take 1 tablet 3 times a day by oral route. 12/20 completed Not Available Not Available Not Available Marcaine 0.5 % (5 mg/mL) injection solution Take 4 mL by injectio n route. 2023 active Not Available Not Available Not Avai lable amoxicilli n 875 mg tablet 01/20 completed Not Available Not Available Not Available amitriptyl ine 25 mg tablet TAKE 2 TABLETS BY MOUTH EVERY DAY AT BEDTIME active Not Available Not Available No t Available lorazepam 0.5 mg tablet TAKE 1 TABLET BY MOUTH TWICE DAILY NEEDED 12/20 completed Not Available Not Available Not Available estradiol 1 mg tablet TAKE 1 TABLET BY MOUTH EVERY DAY active Not Available Not Available No t Available cyanocobal haines (vit B-12) 500 mcg tablet TAKE 1 TABLET ONCE A DAY 12/20 completed Not Available Not Available Not Available hyoscyamin e ER 0.375 mg tablet,ext ended release,12 hr TAKE 1 TABLET BY MOUTH EVERY 12 HOURS NEEDED 06/30 completed Not Available Not Available Not Available gabapentin 800 mg tablet 12/20 completed Not Available Not Available Not Available Nexx [place] Ultra Test strips USE TO TEST BLOOD SUGAR THREE TIMES DAILY active Not Available Not Available No t Available Kenalog 10 mg/mL suspension for injection in office 2023 active [facility]: [phone] Not Available Not Available Not Available benzonatat e 100 mg capsule TAKE 1 CAPSULE BY MOUTH THREE TIMES DAILY NEEDED 01/20 completed Not Available Not Available Not Available cephalexin 500 mg capsule TAKE 1 CAPSULE BY MOUTH EVERY 8 HOURS FOR 7 DAYS 02/19 completed Not Available Not Available Not Available pantoprazo le 40 mg tablet,del ayed release TAKE 1 TABLET BY MOUTH EVERY DAY 07/27 completed Not Available Not Available Not Available hyoscyamin e sulfate 0.125 mg tablet 03/29 completed Not Available Not Available Not Available trazodone 150 mg tablet TAKE 1 TABLET EVERY NIGHT AT BEDTIME 12/20 completed Not Available Not Available Not Available lisinopril 10 mg tablet TAKE ONE TABLET BY MOUTH DAILY 12/20 completed Not Available Not Available Not Available fluorometh olone 0.1 % eye drops,susp ension INSTILL 1 DROP IN RIGHT EYE THREE TIMES DAILY FOR 14 DAYS DIRECTED 01/20 completed Not Available Not Available Not Available butalbital -aspirin-c affeine 50 mg-325 mg-40 mg tablet active Not Available Not Available Not Available gabapentin 300 mg capsule TAKE ONE CAPSULE BY MOUTH 3 TIMES A DAY 12/20 completed Not Available Not Available Not Available omeprazole 20 mg capsule,de layed release 09/02 completed Not Available Not Available Not Available zolpidem 5 mg tablet TAKE 1 TABLET BY MOUTH AT BEDTIME NEEDED active Not Available Not Available No t Available furosemide 20 mg tablet TAKE 1 TABLET BY MOUTH EVERY DAY NEEDED FOR ANKLE SWELLING active Not Available Not Available No t Available estradiol 0.5 mg tablet TAKE 1 TABLET BY MOUTH ONCE DAILY *PATIENT NEEDS APPOINTM ENT FOR FURTHER REFILLS* 10/05 completed Not Available Not Available Not Available lisinopril 10 mg-hydroch lorothiazi de 12.5 mg tablet TAKE 1 TABLET BY MOUTH ONCE DAILY 02/25 completed Not Available Not Available Not Available ibuprofen 600 mg tablet 10/05 completed Not Available Not Available Not Available cefuroxime axetil 500 mg tablet Take 1 tablet twice a day by oral route for 10 days. 12/20 completed Not Available Not Available Not Available levofloxac in 500 mg tablet active Not Available Not Available Not Available zolpidem 10 mg tablet TAKE 1 TABLET BY MOUTH EVERY DAY AT BEDTIME active Not Available Not Available No t Available methylpred nisolone 4 mg tablets in a dose pack TAKE 6 TABLETS ON DAY 1 DIRECTED ON PACKAGE AND DECREASE BY 1 TAB EACH DAY FOR A TOTAL OF 6 DAYS 12/20 completed Not Available Not Available Not Available albuterol sulfate HFA 90 mcg/actuat ion aerosol inhaler INHALE 2 PUFFS BY MOUTH EVERY 4 HOURS NEEDED 05/30 completed Not Available Not Available Not Available OxyContin 10 mg tablet,ext ended release 05/30 completed Not Available Not Available Not Available Vitamin D2 1,250 mcg (50,000 unit) capsule Take 1 capsule every week by oral route. 12/20 completed Not Available Not Available Not Available celecoxib 100 mg capsule TAKE 1 CAPSULE BY MOUTH TWICE DAILY 2024 active Not Available Not Available Not Avai lable ondansetro n 4 mg disintegra ting tablet Take 1 tablet every 12 hours by oral route. 06/30 completed Not Available Not Available Not Available topiramate 100 mg tablet TAKE 1 TABLET BY MOUTH EVERY DAY 12/20 completed Not Available Not Available Not Available fluoxetine 20 mg capsule TAKE 3 CAPSULES BY MOUTH IN THE MORNING 12/20 completed Not Available Not Available Not Available fluticason e propionate 50 mcg/actuat ion nasal spray,susp ension USE 2 SPRAYS IN EACH NOSTRIL DAILY 06/30 completed Not Available Not Available Not Available metformin ER 500 mg tablet,ext ended release 24 hr TAKE 1 TABLET BY MOUTH DAILY 05/28 completed Not Available Not Available Not Available dicyclomin e 10 mg capsule TAKE 2 CAPSULES BY MOUTH EVERY 12 HOURS FOR ABDOMINA L PAIN active Not Available Not Available No t Available naproxen 500 mg tablet Take 1 tablet every day by oral route. 12/20 completed Not Available Not Available Not Available oxycodone 5 mg tablet TK 1 T PO Q 8 HOURS PRN 12/20 completed Not Available Not Available Not Available sumatripta n 6 mg/0.5 mL subcutaneo us pen injector 05/30 completed Not Available Not Available Not Available aripiprazo le 15 mg tablet TAKE 1 TABLET BY MOUTH EVERY EVENING 03/12 completed Not Available Not Available Not Available aripiprazo le 20 mg tablet TAKE 1 TABLET BY MOUTH EVERY DAY IN THE EVENING 02/25 completed Not Available Not Available Not Available aripiprazo le 5 mg tablet TAKE 1 TABLET BY MOUTH EVERY DAY IN THE EVENING 06/30 completed Not Available Not Available Not Available Crestor 5 mg tablet TAKE 1 TABLET BY MOUTH EVERY DAY active Not Available Not Available No t Available bupropion HCl XL 300 mg 24 hr tablet, extended release TAKE 1 TABLET BY MOUTH EVERY DAY IN THE MORNING active Not Available Not Available No t Available bupropion HCl XL 150 mg 24 hr tablet, extended release TAKE 1 TABLET BY MOUTH EVERY MORNING 03/29 completed Not Available Not Available Not Available Marcaine (PF) 0.5 % (5 mg/mL) injection solution in office 2023 active Not Available Not Available Not Avai lable topiramate 50 mg tablet TAKE 1 TABLET BY MOUTH TWICE DAILY active Not Available Not Available No t Available nitrofuran toin monohydrat e/macrocry stals 100 mg capsule 12/20 completed Not Available Not Available Not Available lactulose 10 gram/15 mL oral solution TAKE 15 ML BY MOUTH EVERY DAY NEEDED FOR CONSTIPA TION active Not Available Not Available No t Available Rozerem 8 mg tablet TAKE ONE TABLET BY MOUTH EVERY NIGHT AT BEDTIME 01/20 completed Not Available Not Available Not Available Milk of Magnesia PRN 01/20 completed Not Available Not Available Not Available lubiprosto ne 24 mcg capsule active Not Available Not Available Not Available quetiapine 50 mg tablet TAKE 1 TABLET EVERY DAY 12/20 completed Not Available Not Available Not Available peg 3350-elect rolytes 236 gram-22.74 gram-6.74 gram-5.86 gram solution MIX AND DRINK DIRECTED 01/20 completed Not Available Not Available Not Available levocetiri zine 5 mg tablet TAKE 1 TABLET BY MOUTH EVERY DAY 01/20 completed Not Available Not Available Not Available OxyContin 30 mg tablet,ext ended release TK 1 T PO Q 8 H active Not Available Not Available No t Available OxyContin 15 mg tablet,ext ended release 05/30 completed Not Available Not Available Not Available oxycodone 20 mg tablet 12/20 completed Not Available Not Available Not Available oxycodone 10 mg tablet 12/20 completed Not Available Not Available Not Available venlafaxin e ER 225 mg tablet,ext ended release 24 hr TAKE 1 TABLET BY MOUTH EVERY DAY IN THE MORNING 03/29 completed Not Available Not Available Not Available levothyrox ine 100 mcg capsule Take 1 capsule every day by oral route. 2014 active Not Available Not Available Not Avai lable Dexilant 60 mg capsule, delayed release Take 1 capsule every day by oral route for 56 days. 12/20 completed Not Available Not Available Not Available lurasidone 40 mg tablet TAKE 1 TABLET BY MOUTH EVERY DAY IN THE EVENING 03/29 completed Not Available Not Available Not Available Butrans 5 mcg/hour transderma l patch 05/30 completed Not Available Not Available Not Available Latuda 80 mg tablet 08/26 completed Not Available Not Available Not Available ropivacain e (PF) 5 mg/mL (0.5 %) injection solution Take 20 mg by injectio n route. 02/09 completed Not Available Not Available Not Available lurasidone 20 mg tablet TAKE 1 TABLET BY MOUTH EVERY DAY IN THE EVENING FOR 7 DAYS 03/29 completed Not Available Not Available Not Available Latuda 120 mg tablet TAKE 1 TABLET BY MOUTH EVERY DAY AT BEDTIME 12/25 completed Not Available Not Available Not Available Linzess 145 mcg capsule TAKE 1 CAPSULE BY MOUTH EVERY DAY 06/30 completed Not Available Not Available Not Available Linzess 290 mcg capsule active Not Available Not Available Not Available lurasidone 60 mg tablet TAKE 1 TABLET BY MOUTH EVERY DAY WITH A MEAL active Not Available Not Available No t Available Brintellix 20 mg tablet active Not Available Not Available Not Available potassium chloride ER 20 mEq tablet,ext ended release TAKE 1 TABLET BY MOUTH DAILY 03/26 completed Not Available Not Available Not Available Trulicity 1.5 mg/0.5 mL subcutaneo us pen injector 09/15 completed Pt is on wegovy Not Available Not Available Not Available OxyContin 30 mg tablet,cru sh resistant, extended release 08/26 completed Not Available Not Available Not Available Saxenda 3 mg/0.5 mL (18 mg/3 mL) subcutaneo us pen injector 10/05 completed Not Available Not Available Not Available Breo Ellipta 200 mcg-25 mcg/dose powder for inhalation INHALE ONE (1) PUFF BY MOUTH DAILY 10/05 completed Not Available Not Available Not Available Laxative (bisacodyl ) 01/20 completed Not Available Not Available Not Available Trulance 3 mg tablet TAKE 1 TABLET BY MOUTH EVERY DAY IN THE MORNING 01/20 completed Not Available Not Available Not Available BD Ultra-Fine Micro Pen Needle 32 gauge x 1/4 05/30 completed Not Available Not Available Not Available OneTouch Delica Plus Lancet 30 gauge USE TO TEST BLOOD SUGAR THREE TIMES DAILY DIRECTED active Not Available Not Available No t Available Rybelsus 14 mg tablet 09/01 completed Not Available Not Available Not Available Rybelsus 7 mg tablet 01/20 completed Not Available Not Available Not Available Sutab 1.479-0.18 8-0.225 gram tablet DIRECTED for bowel prep for colonosc opy active Not Available Not Available No t Available Wegovy 2.4 mg/0.75 mL subcutaneo us pen injector INJECT 2.4 MG SUBCUTAN EOUSLY ONCE WEEKLY 05/28 completed Not Available Not Available Not Available Mounjaro 5 mg/0.5 mL subcutaneo us pen injector ADMINIST ER 5 MG UNDER THE SKIN EVERY WEEK DIRECTED active Not Available Not Available No t Available Mounjaro 10 mg/0.5 mL subcutaneo us pen injector active Not Available Not Available Not Available Mounjaro 2.5 mg/0.5 mL subcutaneo us pen injector ADMINIST ER 2.5 MG UNDER THE SKIN EVERY WEEK DIRECTED 03/29 completed Not Available Not Available Not Available Vitals Date Recorded Body height Body mass index (BMI) Body weight Pain severity - 0-10 verbal numeric rating [Score] - Reported Provider Name and Address Organization Details Last Updated DateTime 01/26/2024 160.02 cm 33.7 kg/m2 91148.55 g 7 JAYDA Perea [place] - [facility] [employer] 01/26/2024 10:38:07 Date Recorded Body height Body mass index (BMI) Body weight Pain severity - 0-10 verbal numeric rating [Score] - Reported Provider Name and Address Organization Details Last Updated DateTime 03/29/2024 160.02 cm 33.7 kg/m2 16744.55 g 6 Fátima Coulter [facility] [employer] [facility] [employer] 03/29/2024 10:33:45 Date Recorded Body height Body mass index (BMI) Body weight Provider Name and Address Organization Details Last Updated DateTime 05/31/2024 160.02 cm 33.7 kg/m2 43873.55 g Fátima Coulter [facility] [employer] [facility] [employer] [facility] 05/31/2024 09:22:16 Date Recorded Body weight Pain severity - 0-10 verbal numeric rating [Score] - Reported Provider Name and Address Organization Details Last Updated DateTime 09/06/2024 67924.55 g 7 Fátima Coulter [facility] [employer] [facility] [employer] [facility] [employer] 09/06/2024 11:26:46 Date Recorded Body height Body mass index (BMI) Body weight Pain severity - 0-10 verbal numeric rating [Score] - Reported Provider Name and Address Organization Details Last Updated DateTime 10/04/2024 160.02 cm 33.7 kg/m2 12534.55 g 8 Fátima Coulter [facility] [employer] [facility] [employer] [facility] 10/04/2024 08:45:33 Social History Question Answer Notes LastModified by Organizat ion Details LastModified Time Tobacco Smoking Status Never Smoker Not Available [facility] 10/21/2022 08:44:58 Do You Have An Advance Directive? No [id number] Information not available 10/21/2022 What Is Your Level Of Alcohol Consumption? None [id number] Information not available 10/21/2022 What Is Your Level Of Caffeine Consumption? Moderate [id number] Information not available 10/21/2022 How Much Tobacco Do You Chew? None [id number] Information not available 10/21/2022 In The 14 Days Before Symptom Onset, Have You Had Close Contact With A Laboratory-darlinei talia COVID-19 While That Case Was Ill? No [id number] Information not available 10/21/2022 In The 14 Days Before Symptom Onset, Have You Had Close Contact With A Person Who Is Under Investigation For COVID-19 While That Person Was Ill? No [id number] Information not available 10/21/2022 What Type Of Diet Are You Following? REGULAR [id number] Information not available 10/21/2022 Which Illicit Or Recreational Drugs Have You Used? None [id number] Information not available 10/21/2022 Do You Or Have You Ever Used E-cigarettes Or Vape? Never Used Electronic Cigarettes [id number] Information not available 10/21/2022 What Is The Highest Grade Or Level Of School You Have Completed Or The Highest Degree You Have Received? [id number] Information not available 10/21/2022 What Is Your Occupation? [employer] [id number] Information not available 10/21/2022 Have There Been Any Changes To Your Family Or Social Situation? No [id number] Information not available 10/21/2022 What Is The Fluoride Status Of Your Home? Fluoridated [id number] Information not available 10/21/2022 Are There Any Guns Present In Your Home? No [id number] Information not available 10/21/2022 Do You Use Insect Repellent Routinely? No [id number] Information not available 10/21/2022 Where Do You [facility]? [facility] [id number] Information not available 10/21/2022 Do You Have A Medical Power Of Home Service Advisor? No [id number] Information not available 10/21/2022 What Was The Date Of Your Most Recent Tobacco Screening? 03/29/2024 Information not available 03/29/2024 Have You Ever Been Counseled For Unhealthy Alcohol Use? No [id number] Information not available 10/21/2022 Do You Have Any Pets? No [id number] Information not available 10/21/2022 What Is Your Relationship Status? Single [id number] Information not available 10/21/2022 Do You Have Smoke And Carbon Monoxide Detectors In Your Home? Yes [id number] Information not available 10/21/2022 Are You Passively Exposed To Smoke? No [id number] Information not available 10/21/2022 Do You Or Have You Ever Used Smokeless Tobacco? Never Used Smokeless Tobacco [id number] Information not available 10/21/2022 Are There Any Smokers In Your House? No [id number] Information not available 10/21/2022 How Much Tobacco Do You Smoke? No MIGRATION.[id number] Information not available 10/21/2022 Do You Feel Stressed (tense, Restless, Nervous, Or Anxious, Or Unable To Sleep At Night)? [id number] Information not available 10/21/2022 Do You Use Any Illicit Or Recreational Drugs? No [id number] Information not available 10/21/2022 Do You Use Sunscreen Routinely? No MIGRATION.17012 [id number] Information not available 10/21/2022 How Many Years Have You Smoked Tobacco? 0 MIGRATION.72595 04624 Information not available 10/21/2022 Have You Recently Traveled Abroad? No MIGRATION.16269 [id number] Information not available 10/21/2022 Do You Have Any Dietary Restrictions? No MIGRATION.43895 32640 Information not available 10/21/2022 Do You Or Have You Ever Used Any Other Forms Of Tobacco Or Nicotine? No MIGRATION.37005 08436 Information not available 10/21/2022 Sex: Unknown Functional Status Question Answer Note LastModified by Organizat ion Details LastModified Time What is your exercise level? Moderate [id number] Information not available 10/21/2022 Mental Status None recorded. Family History Relationship Description Onset Age of this Age Resolved Age Notes LastModified by Organization Details LastModified Time Father Asthma MIGRATION.824 [id number] Not available 10/21/2022 08:45:30 Father Cerebrovascu lar accident MIGRATION.429 [id number] Not available 10/21/2022 08:45:30 Brother Migraine MIGRATION.526 [id number] Not available 10/21/2022 08:45:30 Maternal Grandmother Suspected cervical cancer MIGRATION.182 [id number] Not available 10/21/2022 08:45:30 Paternal Grandmother Malignant tumor of ovary MIGRATION.234 [id number] Not available 10/21/2022 08:45:30 Paternal Grandmother Malignant tumor of cervix MIGRATION.335 [id number] Not available 10/21/2022 08:45:30 Paternal Grandmother Migraine MIGRATION.614 [id number] Not available 10/21/2022 08:45:30 Paternal Grandmother Dementia MIGRATION.997 [id number] Not available 10/21/2022 08:45:30 Paternal Grandmother Depressive disorder MIGRATION.411 [id number] Not available 10/21/2022 08:45:30 Paternal Grandmother Diabetes mellitus MIGRATION.619

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
--- OUTSIDE RECORDS SUMMARY | 2024-11-13 06:56 | XMS_ITS | Clinical Summary ---
Author Organization [facility] Address [address] [place] [address] Care Team Providers Care Assembler 1St Shift Name Role Phone Hari Macdonald MD Primary Care Provider [phone] Allergies Active Allergy Reactions Criticality Noted Date Comments Amoxicillin Rash,Unknown Low 12/09/2020 Codeine Nausea and Vomiting,Nausea Only,Other (see comment),Vomiting Low 07/19/2015 Reaction: NAUSEA;, Reaction: NAUSEA;, Medications acetaminophen (TYLENOL) 325 MG tablet Take 2 tablets (650 mg total) by mouth every 6 (six) hours as needed. 02/12/20 23 Active albuterol sulfate HFA 108 (90 Base) MCG/ACT inhaler 02/27/20 23 Active Aripiprazole 20 MG Tab Take 1 tablet by mouth every evening. 02/04/20 23 Active atorvastatin (LIPITOR) 40 MG tablet Take 1 tablet (40 mg total) by mouth nightly at bedtime. 03/11/20 23 Active buPROPion XL (WELLBUTRIN XL) 150 MG 24 hr tablet Take 1 tablet (150 mg total) by mouth every morning. Active cyclobenzaprine (FLEXERIL) 10 MG tablet 03/23/20 23 Active WEGOVY 2.4 mg/dose injection (PEN) INJECT 2.4 MG SUBCUTANEOUSLY ONCE WEEKLY Active estradiol (ESTRACE) 0.5 MG tablet TAKE 1 TABLET BY MOUTH ONCE DAILY *PATIENT NEEDS APPOINTMENT FOR FURTHER REFILLS* 03/09/20 Active BREO ELLIPTA 200-25 MCG/ACT inhaler INHALE ONE (1) PUFF BY MOUTH DAILY 02/13/20 23 Active furosemide (LASIX) 20 MG tablet TAKE 1 TABLET BY MOUTH EVERY DAY NEEDED FOR ANKLE SWELLING 03/08/20 Active ONETOUCH VERIO test strip 3 (three) times daily. 06/02/20 Active Lancets (ONETOUCH DELICA PLUS [id number]) Misc 3 (three) times daily. 03/11/20 Active ibuprofen (MOTRIN) 600 MG tablet Take 1 tablet (600 mg total) by mouth every 6 (six) hours as needed. 02/12/20 Active levothyroxine (SYNTHROID) 100 MCG tablet TAKE 1 TABLET BY MOUTH DAILY AT BEDTIME *PATIENT NEEDS TO CALL OFFICE BEFORE NEXT REFILL* 03/08/20 Active meloxicam (MOBIC) 15 MG tablet Take 1 tablet (15 mg total) by mouth daily. Active pantoprazole EC (PROTONIX) 40 MG tablet Take 1 tablet (40 mg total) by mouth daily. 03/08/20 Active topiramate (TOPAMAX) 50 MG Tab Take 1 tablet (50 mg total) by mouth 2 (two) times daily. 03/08/20 Active Venlafaxine HCl (VENLAFAXINE XR) 225 MG TABLET SR 24 HR 24 hr tablet TAKE 1 TABLET BY MOUTH EVERY MORNING *MUST KEEP APPT ON 03/16/2023* 03/19/20 Active rizatriptan (MAXALT) 10 MG tabletIndicatio ns:Nonintractab le episodic headache, unspecified headache type Take 1 tablet (10 mg total) by mouth as needed for Migraine. May repeat in 2 hours if needed 10 tablet 3 05/11/20 Active Active Problems Problem Noted Date Diagnosed Date Cervical radiculopathy 05/12/2023 Overview (05/12/2023): Added automatically from request for surgery [id number] Social History Tobacco Use Types Packs/Day Years Used Date Smoking Tobacco: Never Smokeless Tobacco: Never Tobacco Cessation:Counseling Given: Not Answered PHQ-2 Answer Date Recorded Patient Health Questionnaire-2 Score 3 03/29/2023 Comments No Sex and Gender Information Value Date Recorded Sex Assigned at Not on file Legal Sex Female 1:55 PM CDT Gender Identity Not on file Sexual Orientation Not on file Last Filed Vital Signs Vital Sign Reading Time Taken Comments Blood Pressure 115/87 05/26/2023 10:34 AM CDT Pulse 84 05/26/2023 10:34 AM CDT Temperature 36.8 C (98.2 F) 05/26/2023 10:19 AM CDT Respiratory Rate 18 05/26/2023 10:3 4 AM CDT Oxygen Saturation 100% 05/26/2023 10: 34 AM CDT Inhaled Oxygen Concentration - - Weight 82.9 kg (182 lb 12.8 oz) 023 10:19 AM CDT Height 160 cm (5' 3 ) 05/26/2023 10:19 AM CDT Body Mass Index 32.38 05/26/2023 10:19 AM CDT Plan of Treatment Health Maintenance Due Date Last Done Comments Colorectal Cancer Screening Colonoscopy (10 Years) 1971 Annual Physical 1974 Hepatitis C 1989 Hepatitis B Vaccines (1 of 3 - 19+ 3-dose series) 1990 Mammogram Screening 2011 Zoster Vaccines (1 of 2) 2021 PHQ-2 (Physician [place]) 03/29/2024 03/29/2023 COVID-19 Vaccine (1 - 2023-2 5 season) 2024 Influenza Adult (#1) 2024 PHQ-2 (Physician [place]) 08/23/2024 03/29/2023 DTaP, Tdap and Td Vaccines ( 2 - Td or Tdap) 02/10/2033 02/10/2023 Meningococcal B Vaccine Aged Out No l onger eligible based on patient's age to complete this topic Meningococcal Vaccine Aged Out No brianna ashley eligible based on patient's age to complete this topic Pneumococcal Vaccine: Pediat rics (0 to 5 Years) and At-Risk Patients (6 to 64 Years) Aged Out No longer eligi ble based on patient's age to complete this topic RSV Immunizations Under 20 Months Aged Out No longer eligible based on patient's age to complete this topic Insurance [employer] [address] Care Teams Assembler 1St Shift Relationship Specialty Start Date End Date Hari Macdonald MD [address] [id number] PCP - General INTERNAL MEDICINE 02/10/23
--- OUTSIDE RECORDS SUMMARY | 2024-11-13 06:56 | XMS_ITS | Clinical Summary ---
Author Organization [facility] Janine lazcano Address [address] [place] [id number] Phone Care Team Providers Care Body Shop Supervisor Name Role Phone Ady Jama MD Primary Care Provider [phone] Allergies Active Allergy Reactions Criticality Noted Date Comments Amoxicillin Unknown 12/09/2020 Lidocaine Hcl Vomiting 12/09/2020 Codeine Nausea And Vomiting,nausea,Other (see comments),Vomiting Low 07/19/2015 Reaction: NAUSEA;, Medications Medication Sig Dispensed Refills Start Date End Date Status ARIPiprazole (ABILIFY) 15 MG tablet 1 (one) time each day in the evening 11/19/2020 Active atorvastatin (LIPITOR) 40 MG tablet 10/03/2020 Active buPROPion XL (WELLBUTRIN XL) 150 MG 24 hr tablet 10/10/2020 Active estradiol (ESTRACE) 0.5 MG tablet 10/03/2020 Active furosemide (LASIX) 20 MG tablet TAKE 1 TABLET BY MOUTH EVERY DAY NEEDED FOR ANKLE SWELLING 09/24/2020 Active hydrOXYzine (ATARAX) 50 MG tablet Take 50-100 mg by mouth at night if needed 10/27/2020 Active levothyroxine (SYNTHROID) 100 MCG tablet 11/04/2020 Active lisinopril-hydroCHLOR Othiazide (PRINZIDE) 10-12.5 MG per tablet 10/03/2020 Act melvina Latuda 120 MG tablet 10/03/2020 Acti ve metFORMIN XR 500 MG 24 hr tablet 10/03/2020 Active topiramate (TOPAMAX) 50 MG tablet Take 50 mg by mouth 2 (two) times a day 11/11/2020 Active traZODone (DESYREL) 50 MG tablet 10/10/2020 Active venlafaxine 225 MG 24 hr tablet 10/07/2020 Active zolpidem (AMBIEN) 5 MG tablet Take 5 mg by mouth at night if needed 11/26/2020 Active Active Problems Problem Noted Date Diagnosed Date Paravertebral muscle spasm 07/10/2020 Overview (12/09/2020): Would prefer to check HLA-B27 but medicare does not cover this test. 07/12 labs: ESR 24, Cr 1.19 w/gfr 54, platelets 442, +HBsAb/Hep B core IgG/IgM, AVISE SANDI IgG 21 (low+) by shoaib only, RF IgM 3.7 (equiv), anti-TG 1010, anti-Thyroid peroxidase 233 07/12 xrays: -Bilateral hands: unremarkable -Lspine: gastric banding device visualized. Mild diffuse facet arthropathy. potential pelvic phleboliths Last Assessment & Plan: Ms. Galvez is a 50yo female with PMH of HTN, prediabetes, hypothyroidism and elevated cholesterol who presents with thoracic to lumbar back pain ongoing for about 10 years. Pain radiates down back of legs and wakes her from sleep. Reports alternating buttock pain as well. Sees PM for [place] 5-325mg and has received multiple ESIs over [...] follow up with pain management as needed. Obesity 01/24/2018 Shortness of breath 01/24/2018 Sleep apnea 01/24/2018 Flushing 10/09/2017 Fibromyalgia 03/26/2017 Overview (12/09/2020): Last Assessment & Plan: Clinically evident, 08/09 tender points on exam. Continue gabapentin 400mg QID to allow it more time to take effect. Start methocarbamol 500mg qhs for muscle spasms/sleep. Continue to follow up with pain management as needed. Encouraged santiago-chi and routine exercise and provided PT referral ([facility] offers fibromyalgia pain program). Discussed fibromyalgia diagnosis and that her PCP or PM doctor could resume care of her treatment but she is welcome to return if she would prefer us to wastewater project manager her care. Patient verbalized understanding. Seen with Dr. Grey. 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 (12/09/2020): DISACCHARIDASE DEF/MALAB Family History Medical History Relation Comments Migraine Brother Asthma Father CVA - cerebrovascular accident due to cerebral a rtery occlusion Father Relation Status Comments Brother Father Social History Tobacco Use Types Packs/Day Years Used Date Smoking Tobacco: Never Smokeless Tobacco: Never Alcohol Use Standard Drinks/Week Comments Yes 0 (1 standard drink = 0.6 oz pur e alcohol) ocassional use Sex and Gender Information Value Date Recorded Sex Assigned at Not on file Gender Identity Not on file Sexual Orientation Not on file Last Filed Vital Signs Vital Sign Reading Time Taken Comments Blood Pressure 128/76 12/02/2020 10:38 AM CDT Pulse - - Temperature 35.8 C (96.5 F) 12/02/2020 10:38 AM CDT Respiratory Rate 18 12/02/2020 10:38 AM CDT Oxygen Saturation - - Inhaled Oxygen Concentration - - Weight 82.6 kg (182 lb) 12/02/2020 10:38 AM CDT Height 160 cm (5' 3 ) 12/02/2020 10:38 AM CDT Body Mass Index 32.24 12/02/2020 10:38 AM CDT Plan of Treatment Health Maintenance Due Date Last Done Comments Influenza Vaccine (#1) 2024 Care Teams Body Shop Supervisor Relationship Specialty Start Date End Date Ady Jama MD [address] [place] [id number] PCP - General Family Medicine 10/28/20
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
[2024-11-13 07:01] VITALS: BP 133/87; PULSE 106; RESP 16; TEMP 36.6; O2SAT 100
[2024-11-13 07:37] VITALS: BP 126/77; PULSE 98; RESP 15; O2SAT 98
[2024-11-13] MEDS: NAPROXEN 500 MG TABLET PO (07:48)
--- OUTSIDE RECORDS SUMMARY | 2024-11-13 07:50 | XMS_ITS | Data Portability ---
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 Patient will come back in a year unless there are new symptoms. Not available 05/18/2024 11:39:24 Plan of Treatment Reminders Order Date Submit Date Provider Last Modified By Organization Details Last Modified Time Details Appointments None recorded. Lab None recorded. Referral primary care provider referral 2023 024 Stacie Macdonald IRON MELTER, [address] [facility] , [address], [address], 10:53:57 Procedures None recorded. Surgeries None recorded. Imaging None recorded. Medication Orders Mounjaro 10 mg/0.5 mL subcutaneou s pen injector 2023 024 [id number], [address], [place], [place], [id number], 12:04:21 Mounjaro 7.5 mg/0.5 mL subcutaneou s pen injector 2023 024 [facility][id number], [address], [place], [place], [id number], 4 10:32:25 estradiol 1 mg tablet 2023 024 [facility] #[id number], [address], [place], [place], [id number], 4 14:25:48 Mounjaro 5 mg/0.5 mL subcutaneou s pen injector 2023 024 [facility] #[id number], [address], [place], [place], [id number], 4 14:25:47 estradiol 1 mg tablet 2023 024 [facility] #[id number], [address], [place], [place], [id number], 4 10:09:53 Mounjaro 2.5 mg/0.5 mL subcutaneou s pen injector [email or web address] [facility]44044, [address], [place], [place], [id number], 4 10:16:48 Patient TargetsNo targets recorded. Patient InstructionsNo instructions recorded. Reason for Referral Primary Care Provider Referr al for Type 2 diabetes mellitus Referring Physician: Sharron Doherty, CURTAIN SUPERVISOR, Encounter Date: 01/26/2024 Results Created Date Observation Date Name Description Value Unit Range Abnormal Flag Note LastModifiedBy Organization Detail LastModifiedTime 05/18/20 24 05/18/2024 IMAGE GUIDE D PAP AND HPV REGAR DLESS image guided Pap, HPV regardless of Pap result SEE RESULT S BELOW CASE REPOR T: Cytol ogy Gynec ologi [facility] Repor t Case: [id number] Autho chalo lunsford Provi lizabeth: Ovidio Andersen MD Colle cted: 05/18 1144 Order ing Locat ion: [place] Patho ismael Recei radha: 05/19 0801 First Justo n: Margarita Payan ed, CT Speci men: Justo garcia Pap - Image d, Cervi x STATE MENT OF ADEQU ACY: Satis facto ry for evalu ation Trans forma tion zone compo nent absen t ----- ----- ----- ----- ----- ----- ----- ----- ----- ----- ----- ----- ----- ----- ----- ----- ----- ---- FINAL DIAGN OSIS: Negat melvina for Intra epith elial Gerber johnson or Cecilia armstrong (NIL) . Elect ever macedo by Margarita Payan ed, CT on 2023 at 8:23 PM ----- ----- ----- ----- ----- ----- ----- ----- ----- ----- ----- ----- ----- ----- ----- ----- ----- ---- HPV RESUL TS: HPV mRNA E6/E7 : No HPV mRNA Detec amadna NOTE: This high risk HPV mRNA assay detec ts fourt een high- risk HPV types (16, 18, 31, 33, 35, 39, 45, 51, 52, 56, 58, 59, 66, 68) witho ut diffe renti ation . COMME NT: This speci men was revie wed by a Cytot echno logis t and/o r Patho logis t (as indic ated in this repor t) after evalu ation using the Thinp rep Imagi ng Syste m. CL[facility] INFOR MATIO N: Menst rual Statu s: LMP (if appli cable ): Clini [facility] Histo ry/Pr eviou s Pap: Type of Neopl rhoda (if appli cable ): Signi fican t Clini [facility] Findi ngs: Other Histo ry: Hormo joelle (if appli cable ): PAP EDUCA LEONARD L NOTE: The Pap Test is a scree radha test with an inher ent false negat melvina rate. Liqui d-bas ed sampl ing may decre ase, but will not elimi tylor, false negat melvina resul ts. A negat melvina resul t does not precl ude the prese nce and/o r devel opmen t of disea se, since the prese nce of abnor mal cells in the sampl e depen ds on the locat ion of the lesio n and sampl ing techn ique. Patsy nued regul ar scree radha is the best metho d of cance r preve ntion . If repor amanda cytol ogic findi ng do not corre late with physi wilton and/o r histo rical findi ngs, furth er inves tigat ion is recom bruno d, as clini lennie warra nted. Not Available [facility] (Lab) [address], [place], [address], 05/25/2024 21:27:46 Result Notes None recorded. Problems Name Problem SNOMED Code Status Onset Date Resolution Date Notes Provider Name and Address Organization Details Recorded Time Diabetes mellitus 01914477 Active [address] [facility] 16:45:30 Notes:Some problems listed i n Document: #[id number] could not be added to this patient's chart. Please review this document and add these problems to the patient's chart manually as needed. Problem Notes None recorded. Procedures Surgical History Date Name Laterality Status Provider Name and Address Organization Details Recorded Time 03/23/20 24 Date of Last Mammogram completed Karmen Wilkinson [facility] 05/18/2024 11:45:10 06/05/[address] [facility] 12/03/2023 09:49:05 12/06/19 22 Date of Last Colonoscopy completed [facility] 12/03/2023 09:49:05 08/23/19 22 Colonoscopy completed [facility] 12/03/2023 09:57:03 08/23/19 20 Date of Last Pap Smear completed [facility] 03/20/2022 14:11:01 08/23/19 19 Total Hysterectomy completed [facility] 03/20/2022 14:17:44 01/22/20 09 Carpal tunnel surgery completed [facility] 03/20/2022 14:18:04 03/23/19 94 Partial Hysterectomy completed [facility] 03/20/2022 14:17:27 Imaging Results None recorded. Procedure Notes None recorded. Medical Equipment None Reported. Allergies Allergen ID Allergen Name Allergen Category Reaction Reaction Severity Criticality Documentation Date Start Date Code Code System Note Provider Name and Address Organization Details Recorded Time 05075 codeine medicatio n Not available Not available Not available 03/20/2022 2670 [facility] 14:05:37 Medications Name Sig Start Date Stop Date Status Note LastModified by Organization Details LastModified Time Prescriptio n - Prior Authorizati on Request active Not Available Not Available N ot Available cyclobenzap rine 10 mg tablet 12/02 completed Not Available Not Available Not Available amoxicillin 500 mg capsule 03/20 completed Not Available Not Available Not Available atorvastati n 40 mg tablet TAKE 1 TABLET BY MOUTH EVERY EVENING active Not Available Not Available No t Available prednisone 10 mg tablet active Not Available Not Available Not Available venlafaxine ER 75 mg capsule,ext ended release 24 hr TAKE 1 CAPSULE BY MOUTH EVERY DAY IN THE MORNING 12/02 completed Not Available Not Available Not Available sumatriptan 100 mg tablet TAKE 1 TABLET BY MOUTH AT ONSET OF HEADACHE. MAY REPEAT IN 2 HOURS IF HEADACHE PERSISTS. NO MORE THAN 2 TABLETS IN 24 HOURS active Not Available Not Available No t Available hydrocodone 5 mg-acetamin ophen 325 mg tablet TAKE 1 TABLET BY MOUTH EVERY 6 HOURS 12/02 completed Not Available Not Available Not Available meloxicam 15 mg tablet TAKE 1 TABLET BY MOUTH EVERY DAY active Not Available Not Available No t Available rizatriptan 10 mg tablet TAKE 1 TABLET BY MOUTH NEEDED FOR MIGRAINE. MAY REPEAT 1 TABLET IN 2 HOURS IF NEEDED active Not Available Not Available No t Available venlafaxine ER 150 mg capsule,ext ended release 24 hr TAKE 1 TABLET BY MOUTH EVERY DAY DIRECTED 12/02 completed Not Available Not Available Not Available amlodipine 5 mg tablet TAKE 1 TABLET BY MOUTH EVERY DAY active Not Available Not Available No t Available omeprazole 40 mg capsule,del ayed release TAKE 1 CAPSULE BY MOUTH DAILY active Not Available Not Available No t Available liothyronin e 5 mcg tablet TAKE 2 TABLETS BY MOUTH EVERY DAY ON AN EMPTY STOMACH active Not Available Not Available No t Available levothyroxi ne 75 mcg tablet 05/18 completed Not Available Not Available Not Available levothyroxi ne 100 mcg tablet TAKE 1 TABLET BY MOUTH EVERY DAY active Not Available Not Available No t Available amoxicillin 875 mg tablet 03/20 completed Not Available Not Available Not Available amitriptyli ne 25 mg tablet TAKE 2 TABLETS BY MOUTH EVERY DAY AT BEDTIME active Not Available Not Available No t Available estradiol 1 mg tablet TAKE 1 TABLET BY MOUTH EVERY DAY active Not Available Not Available No t Available OneTouch Ultra Test strips USE TO TEST BLOOD SUGAR THREE TIMES DAILY 12/28 completed Not Available Not Available Not Available pantoprazol e 40 mg tablet,opal yed release TAKE 1 TABLET BY MOUTH EVERY DAY 05/18 completed Not Available Not Available Not Available hyoscyamine sulfate 0.125 mg tablet TAKE 1 TABLET BY MOUTH FOUR TIMES DAILY 05/18 completed Not Available Not Available Not Available omeprazole 20 mg capsule,del ayed release 03/20 completed Not Available Not Available Not Available zolpidem 5 mg tablet TAKE 1 TABLET BY MOUTH AT BEDTIME NEEDED 12/02 completed Not Available Not Available Not Available furosemide 20 mg tablet TAKE 1 TABLET BY MOUTH EVERY DAY NEEDED FOR ANKLE SWELLING active Not Available Not Available No t Available estradiol 0.5 mg tablet TAKE 1 TABLET BY MOUTH ONCE DAILY *PATIENT NEEDS APPOINTME NT FOR FURTHER REFILLS* 12/02 completed Not Available Not Available Not Available lisinopril 10 mg-hydrochl orothiazide 12.5 mg tablet TAKE 1 TABLET BY MOUTH ONCE DAILY 03/20 completed Not Available Not Available Not Available ibuprofen 600 mg tablet TAKE 1 TABLET BY MOUTH EVERY 6 HOURS NEEDED FOR PAIN 05/18 completed Not Available Not Available Not Available zolpidem 10 mg tablet TAKE 1 TABLET BY MOUTH EVERY DAY AT BEDTIME active Not Available Not Available No t Available albuterol sulfate HFA 90 mcg/actuati on aerosol inhaler INHALE 2 PUFFS BY MOUTH EVERY 4 HOURS NEEDED active Not Available Not Available No t Available ondansetron 4 mg disintegrat ing tablet 03/20 completed Not Available Not Available Not Available fluticasone propionate 50 mcg/actuati on nasal spray,suspe nsion 03/20 completed Not Available Not Available Not Available metformin ER 500 mg tablet,exte nded release 24 hr TAKE 1 TABLET BY MOUTH DAILY 12/02 completed Not Available Not Available Not Available dicyclomine 10 mg capsule TAKE 2 CAPSULES BY MOUTH EVERY 12 HOURS FOR ABDOMINAL PAIN 05/18 completed Not Available Not Available Not Available aripiprazol e 20 mg tablet TAKE 1 TABLET BY MOUTH EVERY DAY IN THE EVENING 12/02 completed Not Available Not Available Not Available aripiprazol e 5 mg tablet 03/20 completed Not Available Not Available Not Available bupropion HCl XL 300 mg 24 hr tablet, extended release TAKE 1 TABLET BY MOUTH EVERY DAY IN THE MORNING active Not Available Not Available No t Available bupropion HCl XL 150 mg 24 hr tablet, extended release TAKE 1 TABLET BY MOUTH EVERY MORNING 12/02 completed Not Available Not Available Not Available topiramate 50 mg tablet TAKE 1 TABLET BY MOUTH TWICE DAILY active Not Available Not Available No t Available lactulose 10 gram/15 mL oral solution TAKE 15 ML BY MOUTH EVERY DAY NEEDED FOR CONSTIPAT ION active Not Available Not Available No t Available Rozerem 8 mg tablet TAKE ONE TABLET BY MOUTH EVERY NIGHT AT BEDTIME 03/20 completed Not Available Not Available Not Available venlafaxine 12/02 completed Not Available Not Available Not Available peg 3350-electr olytes 236 gram-22.74 gram-6.74 gram-5.86 gram solution 03/20 completed Not Available Not Available Not Available levocetiriz ine 5 mg tablet 03/20 completed Not Available Not Available Not Available venlafaxine ER 225 mg tablet,exte nded release 24 hr TAKE 1 TABLET BY MOUTH EVERY DAY IN THE MORNING 12/02 completed Not Available Not Available Not Available lurasidone 40 mg tablet TAKE 1 TABLET BY MOUTH EVERY DAY IN THE EVENING 12/02 completed Not Available Not Available Not Available lurasidone 20 mg tablet TAKE 1 TABLET BY MOUTH EVERY DAY IN THE EVENING FOR 7 DAYS 12/02 completed Not Available Not Available Not Available Linzess 145 mcg capsule 03/20 completed Not Available Not Available Not Available lurasidone 60 mg tablet TAKE 1 TABLET BY MOUTH EVERY DAY WITH A MEAL active Not Available Not Available No t Available Saxenda 3 mg/0.5 mL (18 mg/3 mL) subcutaneou s pen injector 12/02 completed Not Available Not Available Not Available Breo Ellipta 200 mcg-25 mcg/dose powder for inhalation INHALE ONE (1) PUFF BY MOUTH DAILY active Not Available Not Available No t Available BD Ultra-Fine Micro Pen Needle 32 gauge x 1/4 12/02 completed Not Available Not Available Not Available OneTouch Delica Plus Lancet 30 gauge USE TO TEST BLOOD SUGAR THREE TIMES DAILY 12/28 completed Not Available Not Available Not Available Rybelsus 14 mg tablet 12/02 completed Not Available Not Available Not Available Rybelsus 7 mg tablet 03/20 completed Not Available Not Available Not Available Wegovy 2.4 mg/0.75 mL subcutaneou s pen injector INJECT 2.4 MG SUBCUTANE OUSLY ONCE WEEKLY 12/02 completed Not Available Not Available Not Available Mounjaro 7.5 mg/0.5 mL subcutaneou s pen injector Inject 7.5 mg every week by subcutane ous route as directed for 30 days. 2023 active Not Available Not Available Not Avai lable Mounjaro 5 mg/0.5 mL subcutaneou s pen injector ADMINISTE R 5 MG UNDER THE SKIN EVERY WEEK DIRECTED active Not Available Not Available No t Available Mounjaro 10 mg/0.5 mL subcutaneou s pen injector 2024 active Not Available Not Available Not Avai lable Mounjaro 2.5 mg/0.5 mL subcutaneou s pen injector ADMINISTE R 2.5 MG UNDER THE SKIN EVERY WEEK DIRECTED 01/25 completed Not Available Not Available Not Available Vitals Date Recorded Body height Body mass index (BMI) Body weight Systolic blood pressure Diastolic blood pressure Provider Name and Address Organization Details Last Updated DateTime 03/20/2022 160.02 cm 24.3 kg/m2 24283.15 g 98 mm[Hg] 64 mm[Hg] Italia Bravo [facility] 14:04:13 Date Recorded Body height Body mass index (BMI) Body weight Provider Name and Address Organization Details Last Updated DateTime 12/03/2023 160.02 cm 37.7 kg/m2 04845.[address] [facility] 12/03/2023 09:48:02 Date Recorded Systolic blood pressure Diastolic blood pressure Provider Name and Address Organization Details Last Updated DateTime 12/03/2023 130 mm[Hg] 82 mm[Hg] Sharron Doherty [facility]- [address], [place], [address], [facility] 12/03/2023 10:26:55 Date Recorded Body height Body mass index (BMI) Body weight Systolic blood pressure Diastolic blood pressure Provider Name and Address Organization Details Last Updated DateTime 12/29/2023 160.02 cm 34.7 kg/m2 68525.1 g 122 mm[Hg] 81 mm[Hg] Karmen Wilkinson [facility] 14:16:49 Date Recorded Body height Body mass index (BMI) Body weight Systolic blood pressure Diastolic blood pressure Provider Name and Address Organization Details Last Updated DateTime 01/26/2024 160.02 cm 33.8 kg/m2 42951.14 g 108 mm[Hg] 78 mm[Hg] Karmen Wilkinson [facility] 4 10:11:58 Date Recorded Body height Body mass index (BMI) Body weight Systolic blood pressure Diastolic blood pressure Provider Name and Address Organization Details Last Updated DateTime 05/18/2024 160.02 cm 34.9 kg/m2 63890.7 g 131 mm[Hg] 72 mm[Hg] Karmen Wilkinson [facility] 4 11:41:23 Social History Question Answer Notes LastModified by Organizat ion Details LastModified Time Tobacco Smoking Status Never Smoker Italia Bravo ashley, [facility] 03/20/2022 14:16:32 What Is Your Level Of Alcohol Consumption? Occasional Information not available 03/20/2022 How Many Years Have You Consumed Alcohol? 30 Information not available 12/03/2023 Are You Blind Or Do You Have Difficulty Seeing? No Information not available 12/03/2023 What Is Your Level Of Caffeine Consumption? None Information not available 12/03/2023 How Much Tobacco Do You Chew? None Information not available 12/03/2023 In The 14 Days Before Symptom Onset, Have You Had Close Contact With A Laboratory-confir med COVID-19 While That Case Was Ill? No Information not available 12/03/2023 In The 14 Days Before Symptom Onset, Have You Had Close Contact With A Person Who Is Under Investigation For COVID-19 While That Person Was Ill? No Information not available 12/03/2023 Have You Been To An Area Known To Be High Risk For COVID-19? No Information not available 12/03/2023 Are You Deaf Or Do You Have Serious Difficulty Hearing? No Information not available 12/03/2023 What Type Of Diet Are You Following? REGULAR Information not available 12/03/2023 What Is The Highest Grade Or Level Of School You Have Completed Or The Highest Degree You Have Received? 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 No Information not available 12/03/2023 Have You Ever Been Counseled For Unhealthy Alcohol Use? No Information not available 03/20/2022 Do You Use Protection During Sex? Always Information not available 12/03/2023 Do You Use Your Seat Belt Or Car Seat Routinely? Yes Information not available 12/03/2023 Do You Have Smoke And Carbon Monoxide Detectors In Your Home? Yes Information not available 12/03/2023 How Much Tobacco Do You Smoke? No Information not available 12/03/2023 Do You Feel Stressed (tense, Restless, Nervous, Or Anxious, Or Unable To Sleep At Night)? [id number] Information not available 12/03/2023 Do You Use Any Illicit Or Recreational Drugs? No Information not available 12/03/2023 Do You Use Sunscreen Routinely? No Information not available 12/03/2023 Has Tobacco Cessation Counseling Been Provided? No Information not available 03/20/2022 Have You Used IV Drugs? No Information not available 12/03/2023 Do You Or Have You Ever Used Any Other Forms Of Tobacco Or Nicotine? No Information not available 03/20/2022 Sex: Unknown Functional Status Question Answer Note LastModified by Organization D etails LastModified Time Are you able to walk? YESWOREST Information not available 12/03/2023 What is your exercise level? None Information not available 12/03/2023 Mental Status None recorded. Family History Relationship Description Onset Age of this Age Resolved Age Notes LastModified by Organization Details LastModified Time Mother Heart disease [email or web address] Not available 2021 14:14:07 Mother Diabetes mellitus [email or web address] Not available 2021 14:15:07 Mother Hypercholest erolemia smcaley Not available 2021 14:15:18 Mother Hypertensive disorder smcaley Not available 2021 14:15:45 Mother Mental disorder [email or web address] Not available 2021 14:16:10 Father Diabetes mellitus smcaley Not available 2021 14:15:07 Father Hypercholest erolemia smcaley Not available 2021 14:15:18 Father Hypertensive disorder smcaley Not available 2021 14:15:45 Father Mental disorder smcaley Not available 2021 14:16:10 Sister Hypertensive disorder smcaley Not available 2021 14:15:45 Sister Asthma smcaley Not available 14:19:23 Sister Anemia smcaley Not available 14:19:28 Brother Hypertensive disorder smcaley Not available 2021 14:15:45 Paternal Grandfather Mental disorder smcaley Not available 2021 14:16:10 Maternal Grandmother Malignant tumor of cervix smcaley Not available 2021 14:19:10 Medical History Condition Response Allergies (Food, seasonal, environmental ) N Other N Blood Transfusion N Drug/Latex Allergies/Reactions N Breast Cancer N Dermatologic Disorders N Lung Disease N Defects or Inherited Disease N Breast Problem N Gestational Diabetes N Hematologic disorders N Anesthesia Complications N History of STI N Deep Vein Thrombosis N Polycystic ovary syndrome N Anxiety Disorder N Autoimmune disease N Arthritis N Infertility N Polyps N Acid Reflux (GERD) Y History of abnormal pap N Cancer N Stroke N Varicosities N Neurologic/Epilepsy N Endometriosis N High Cholesterol Y Headaches Y Fibromyalgia N Kidney Disease N Heart Problems N Kidney or Bladder Problems N Thyroid Problems Y GI Problems N Eating Disorder N Anemia Y Art (IVF or FET) N Psychiatric Illness Y Ovarian Cancer N Diabetes Y Pulmonary (TB, Asthma) N Hepatitis/Liver Disease N No Past Medical History N Eczema N Urinary Tract Infection N Abuse/Domestic Violence N Asthma Y Trauma/Violence N Depression/ depression N Heart Disease N Pre-Eclampsia N Hypertension Y Osteoporosis N Thrombophilias N Gynecological History Statement/Question Response Date of Last Mammogram 03/23/2024 On BCP's at Conception? N N Was last menstrual period normal Y STIs/STDs N HPV Vaccine N Duration of Flow (days) 0 Current Control Method Hysterectom y Age at First Child 17 If Post Menopausal, Age at Menopause 53 Are cycles usually normal Y Date of Last Colonoscopy 12/05/2021 Frequency of Cycle (Q days) 0 Sexually Active? Y Menses Monthly N Age of first menstrual cycle 11 Date of Last Pap Smear 08/23/2019 Sexual Problems? N LMP Unknown 06/05/2022 N Obstetrics History GPAL:G 4 P 4 0 0 4 Type Value Full Term 4 Living 4 Total 4 Past Encounters Encounter ID Performer Location Encounter Start Date Encounter Closed Date Diagnosis/Indication Diagnosis SNOMED-CT Code Diagnosis ICD10 Code Diagnosis Note [id number] [facility] [address],[place] [address] 03/18/2022 14:16:46 03/18/2022 17:41:43 Left without being seen [id number] 9102 Z53.21 Patient was not seen, arrived too late to be seen [id number] Gemini Burns MD [place] [address],[place] [address] 03/20/2022 13:29:45 03/24/2022 14:38:53 Pelvic floor tension 882404518 R29.898 Pain in pelvis 84137957 R10.2 Constipation 32633350 K5 9.00 [id number] Sharron Doherty [facility] [address],[place] [address] 12/03/2023 09:38:07 12/03/2023 11:35:16 Menopausal symptom 18282040 N95.1 Today we discussed restarting her estradiol that she tried to d/c a couple months ago.Her vasomotor sx's have returned and so have mood changes. james is agreeable to this recommenda tion. Counseled on medication R/B's, Most common side effects, & use. All questions were answered to patient satisfacti on. Type 2 kizzy betes mellitus 04222900 E11.9 Z68.37 Today we discussed in detail the use of GLP-1/GLP- 2.She has tried wegovy in the past and did not feel it helped with Weight loss; but it did help her hgbA1c. Her hgbA1c is stable but her attempts at nutritiona l changes/ex ercising are showing very minimal weight loss results for her. She is ensuring she is getting protein with food/but also supplement al premier protein shakes with 30-40gms protein (1-2 per day).She is walking outside, going to [employer], and is looking into other classes to take. Counseled on medication R/B's, Most common side effects, & use. All questions were answered to patient satisfacti on.Neg family or personal history of medullary thyroid cancers.He alth Hx was reviewed and updated as reported in chart.F/U in 3.5wks med check and discuss goals. Time spent in visit is a total of 30 mins with at least 50% of visit consisting of counseling and review of plan of care. [id number] Sharron Doherty , [facility] [address] [address] 12/29/2023 14:12:15 12/29/2023 14:30:21 Menopausal symptom 48938823 N95.1 Doing exceptiona lly well on her Estradiol 1mgFeels more energy and desire sexuallyAl so feels that vaginal dryness has improved.W ishes to continue this method of therapy.RF sent Type 2 kizzy betes mellitus 44526547 E11.9 Z68.37 Doing exceptiona lly well on initiation of Mounjaro for DM2/Weight loss.Carmelo Mcleod.Los t almost 17lbs since her last visit.She is able to get her protein and vegetable/ fruit intake in daily as well as stay hydrated.A ctivity is picking up through walking since the weather is becoming nicer.She had no side effects with this initial dosing of 2.5mg wkly.We discussed that we will continue to re-evaluat e our goals at each visit as previously discussed. Rx sent with f/u in 4wks due med check Counseled on medication R/B's, Most common side effects, & use. All questions were answered to patient satisfacti on. Time spent in visit is a total of 21 mins with at least 50% of visit consisting of counseling and review of plan of care. [id number] Sharron Doherty , [facility] [address] [address] 01/26/2024 09:40:56 01/26/2024 10:45:38 Type 2 diabetes mellitus [id number] E11.9 Z68.37 Today we discussed her current progress with Mounjaro for DM2/Weight loss.She was unable to move up to 5mg due to shortage at the pharmacy.S he repeated a second month of 2.5mg and will go vegetable picker 5mg at her pharmacy today.We will send Rx for 7.5mg to use in the following month; which she will f/u with Stacie Macdonald, [facility] PCP.She is doing great and her weight-los s is appropriat e for the month.She is getting in more activity since it is nice outside.Be ing conscious of protein intake and shooting for 45-60gms a day.Stayin g hydrated.S he is having no side effects at this time. No further questions. Rx sentReferr al given Time spent in visit is a total of 22 mins with at least 50% of visit consisting of counseling and review of plan of care. [id number] Lincoln Andersen MD [place] [address] [address] 05/18/2024 11:30:51 05/18/2024 12:08:45 Gynecologic examination [id number] Z01.419 Annual gynecologi wilton exam performed. Patient will come back in a year unless there are new symptoms. Suggest Calcium with Vitamin D if not eating in diet. Patient advised to get annual flu shot. Recommend yearly physicals and preform monthly breast exams. Genetic testing is available for patients with family history of cancer. Engage in safe sexual practices, use condoms. Encouraged to have daily exercise. Avoid tobacco and illicit drugs, moderation of alcohol. If BMI greater than 25 dietary consult advised. If you have any questions please call or email. mammogram- done colon cancer screening - done DEXA scan- na Pap smear-toda y laboratory evaluation - done Diabetes mellitus [id number] E11.9 Health Concerns Section Related Observation LastModified by Organization Detai ls LastModified Time None Recorded Concern Status LastModified by Organization Details LastModified Time None Recorded Advance Directives Directive None Recorded Payers Encounter Date Sequence Insurance Name Policy Number Policy Ramos Covered Member ID Ramos Member ID Guarantor Name 03/20/2022 2 [facility] (MEDICARE REPLACEMENT/ ADVANTAGE - PPO) [id number] Francoise N Ball-Nereida as [id number] Francoise Ball-Lenny 03/20/2022 1 [employer] - CHOICE (POS II) [id number] Francoise Ball-Nereida as [id number] Francoise Ball-Lenny 12/03/2023 2 [facility] (MEDICARE REPLACEMENT/ ADVANTAGE - PPO) [id number] Francoise N Ball-Nereida as [id number] Francoise Ball-Lenny 12/03/2023 1 [employer] - CHOICE (POS II) [id number] Francoise Ball-Nereida as [id number] Francoise Ball-[place] 12/29/2023 2 [facility] (MEDICARE REPLACEMENT/ ADVANTAGE - PPO) [id number] Francoise N Ball-Nereida as [id number] Francoise Ball-[place] 12/29/2023 1 [employer] - CHOICE (POS II) [id number] Francoise Ball-Nereida as [id number] Francoise Ball-[place]enny 01/26/2024 2 [facility] (MEDICARE REPLACEMENT/ ADVANTAGE - PPO) [id number] Francoise N Ball-Nereida as [id number] Francoise Ball-[place] 01/26/2024 1 [employer] - CHOICE (POS II) [id number] Francoise Ball-Nereida as [id number] Francoise Ball-[place] 05/18/2024 2 [facility] (MEDICARE REPLACEMENT/ ADVANTAGE - PPO) [id number] Francoise N Ball-Nereida as [id number] Francoise Ball-Lenny 05/18/2024 1 [employer] - CHOICE (POS II) [id number] Francoise Ball-Nereida as [id number] Francoise Ball-[place] Notes Date Note Type Note Provider Name and Address Organization Details Recorded Time 2 text/html Patient is a 52yo who presents for pelvic pain for one year, comes and goes. THis episode for about 2 weeks. Pain can e sharp, tender, achy. Usually whole lower abdomen, sometimes more one side or the other. She has diabetes and constipation. Had EGD and colonoscopy that were normal except for one polyp. Lost 45# in last year. No appetite. Had CT x2 and MRI. We do not have those reports. She has history of lap band 10 years ago, but is not active right now. She had MARILOU/RSO in 1994 and then LSSC LSO in 2019. She is sexually active. No bleeding. Concerns: last WWE: 2019 Depression yes, on several meds Domestic violence:denies Gemini Burns MD [address], [place], [address], [facility] 03/23/2022 09:22:27 4 text/html MenopauseReported bypatient.Onset/Timing :6-12 months; morning; afternoon; evening Quality:night sweats; mood changes; hot flashes ; affects quality of life Severity:moderate Duration:intermittent Context:recently discontinued hormones (Tried d/c estradiol 1mg); recent gynecologic surgery (Total hysterectomy age 27yo per pt) Alleviating Factors:exercise; increased rest; eliminating alcohol Aggravating Factors:poor sleep; heat; stress Associated Symptoms:no abdominal pain; no pelvic pain; no abnormal bleeding; no vaginal discharge; no dysuria; no dispareunia; no changes in bowel function; no fever; no vaginal dryness; no irritability; no depression; no anxiety; no skin changes; no loss of libido; no changes in urination FatigueWeight gainVasomotor sx's-wax/wanemood swings since stopping estradiol 1mg [facility] Doherty [facility] [address], [place], [address], [facility] 12/03/2023 11:23:09 4 text/html Here today for medication check of Mounjaro and Estradiol 1mg. Sharron Doherty [facility] [address], [place], [address], [facility] 12/29/2023 14:30:15 4 text/html Here today for medication check of mounjaro for DM2/Weight loss. Sharron Doherty [facility] [address], [place], [address], [facility] 01/26/2024 10:33:03 4 text/html Annual GYNReported bypatient.History:no gynecologic complaints Menstrual cycle:Normal menses Urinary symptoms:No hematuria; No incontinence Vulva:No genital lesion Vagina:Normal vaginal discharge Breast:No breast pain; No breast lump Sexual complaints:No sexual complaints; No pain during intercourse Menopausal Symptoms:No menopausal symptoms; Normal vaginal lubrication Psychological symptoms:No depression; No anxiety Preventive measures:Encourage self breast examination; Encourage regular exercise Lincoln Andersen MD [address], [place], [address], [facility] 05/18/2024 12:08:18 OBGyn Episode Ob Episode Information Episode Created Date Number of Fetuses Patient Bloodtype Patient rh Status Prepregnancy Weight lbs Domestic Partner Domestic Partner Phone Father Name Database Tester Status 03/20/20 22 1 CLOSED Fetus Data First Name Last Name Admitted to NICU Weight (g) Sex Living Outcome Pediatric Complications Fetus ID Race Codes Race Delivery Type 3231.84 3 M Full Term 36026 Vaginal Delivery Terrance Calculation Initial Terrance Date Initial Exam Date Initial Exam Provider Initial Ultrasound Date Last Menstrual Period Date Ultra Sound Weeks Gestation 0 Eighteen To Twenty Week Terrance Update Ultra Sound Date Fundal Height At Umbil Quickening Date Ultra Sound Latest Weeks Gestation Final Terrance Confirmed By Final Terrance Confirmed Date Final Terrance Date Ultra Sound Latest Days Gestation 0 0 Menstrual History Last Menstrual Date Menses Monthly On Bcp Conception Prior Menses Frequency Hcg Plus Date Menarche Onset Age Delivery Information Delivery Date Delivery Type Labor Anesthesia Weeks Gestation Incision Type Labor Labor Length Hrs Delivered By Post Complications Tubal Sterilization Discharge Date Comments 1 36 Discharge Information Feeding Method Contraceptive Method Maternal HG B and HCT Levels Ob Episode Information Episode Created Date Number of Fetuses Patient Bloodtype Patient rh Status Prepregnancy Weight lbs Domestic Partner Domestic Partner Phone Father Name Database Tester Status 03/20/20 22 1 CLOSED Fetus Data First Name Last Name Admitted to NICU Weight (g) Sex Living Outcome Pediatric Complications Fetus ID Race Codes Race Delivery Type 3912.23 1 F Full Term 17827 Vaginal Delivery Terrance Calculation Initial Terrance Date Initial Exam Date Initial Exam Provider Initial Ultrasound Date Last Menstrual Period Date Ultra Sound Weeks Gestation 0 Eighteen To Twenty Week Terrance Update Ultra Sound Date Fundal Height At Umbil Quickening Date Ultra Sound Latest Weeks Gestation Final Terrance Confirmed By Final Terrance Confirmed Date Final Terrance Date Ultra Sound Latest Days Gestation 0 0 Menstrual History Last Menstrual Date Menses Monthly On Bcp Conception Prior Menses Frequency Hcg Plus Date Menarche Onset Age Delivery Information Delivery Date Delivery Type Labor Anesthesia Weeks Gestation Incision Type Labor Labor Length Hrs Delivered By Post Complications Tubal Sterilization Discharge Date Comments 8 36 Discharge Information Feeding Method Contraceptive Method Maternal HG B and HCT Levels Ob Episode Information Episode Created Date Number of Fetuses Patient Bloodtype Patient rh Status Prepregnancy Weight lbs Domestic Partner Domestic Partner Phone Father Name Database Tester Status 03/20/20 22 1 CLOSED Fetus Data First Name Last Name Admitted to NICU Weight (g) Sex Living Outcome Pediatric Complications Fetus ID Race Codes Race Delivery Type 3175.14 4 F Full Term 89840 Vaginal Delivery Terrance Calculation Initial Terrance Date Initial Exam Date Initial Exam Provider Initial Ultrasound Date Last Menstrual Period Date Ultra Sound Weeks Gestation 0 Eighteen To Twenty Week Terrance Update Ultra Sound Date Fundal Height At Umbil Quickening Date Ultra Sound Latest Weeks Gestation Final Terrance Confirmed By Final Terrance Confirmed Date Final Terrance Date Ultra Sound Latest Days Gestation 0 0 Menstrual History Last Menstrual Date Menses Monthly On Bcp Conception Prior Menses Frequency Hcg Plus Date Menarche Onset Age Delivery Information Delivery Date Delivery Type Labor Anesthesia Weeks Gestation Incision Type Labor Labor Length Hrs Delivered By Post Complications Tubal Sterilization Discharge Date Comments 3 36 Discharge Information Feeding Method Contraceptive Method Maternal HG B and HCT Levels Ob Episode Information Episode Created Date Number of Fetuses Patient Bloodtype Patient rh Status Prepregnancy Weight lbs Domestic Partner Domestic Partner Phone Father Name Database Tester Status 03/20/20 22 1 CLOSED Fetus Data First Name Last Name Admitted to NICU Weight (g) Sex Living Outcome Pediatric Complications Fetus ID Race Codes Race Delivery Type 3288.54 2 F Full Term 93476 Vaginal Delivery Terrance Calculation Initial Terrance Date Initial Exam Date Initial Exam Provider Initial Ultrasound Date Last Menstrual Period Date Ultra Sound Weeks Gestation 0 Eighteen To Twenty Week Terrance Update Ultra Sound Date Fundal Height At Umbil Quickening Date Ultra Sound Latest Weeks Gestation Final Terrance Confirmed By Final Terrance Confirmed Date Final Terrance Date Ultra Sound Latest Days Gestation 0 0 Menstrual History Last Menstrual Date Menses Monthly On Bcp Conception Prior Menses Frequency Hcg Plus Date Menarche Onset Age Delivery Information Delivery Date Delivery Type Labor Anesthesia Weeks Gestation Incision Type Labor Labor Length Hrs Delivered By Post Complications Tubal Sterilization Discharge Date Comments 0 37 Discharge Information Feeding Method Contraceptive Method Maternal HG B and HCT Levels
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
--- OUTSIDE RECORDS SUMMARY | 2024-11-13 07:50 | XMS_ITS | Clinical Summary ---
Author Organization [facility] Address [address] [place] [address] Care Team Providers Care Petroleum Refinery Operator Name Role Phone Hari Macdonald MD Primary Care Provider [phone] Allergies Active Allergy Reactions Criticality Noted Date [...] daily. 06/02/20 Active Lancets (ONETOUCH DELICA PLUS [id number]) Misc 3 (three) times daily. 03/11/20 Active [...] (05/12/2023): Added automatically from request for surgery [id number] Social History Tobacco Use Types Packs/Day Years [...] Vaccines (1 of 2) 2021 PHQ-2 (Physician [place]) 03/29/2024 03/29/2023 COVID-19 Vaccine (1 - 2023-2 5 season) 2024 Influenza Adult (#1) 2024 PHQ-2 (Physician [place]) 08/23/2024 03/29/2023 DTaP, Tdap and Td Vaccines [...] age to complete this topic Insurance [employer] [address] Care Teams Petroleum Refinery Operator Relationship Specialty Start Date End Date Hari Macdonald MD [address] [id number] PCP - General INTERNAL MEDICINE 02/10/23
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
--- OUTSIDE RECORDS SUMMARY | 2024-11-13 07:50 | XMS_ITS | Clinical Summary ---
Author Organization [facility] Address [address] [place] [id number] Phone Care Team Providers Care Commercial Journeyman Electrician Name Role Phone Ady Jama MD Primary Care Provider [phone] Allergies Active Allergy Reactions Criticality Noted Date [...] buttock pain as well. Sees PM for [place] 5-325mg and has received multiple ESIs over [...] routine exercise and provided PT referral ([facility] offers fibromyalgia pain program). Discussed fibromyalgia diagnosis and that her PCP or PM doctor could resume care of her treatment but she is welcome to return if she would prefer us to talent acquisition program manager her care. Patient verbalized understanding. Seen [...] Comments Influenza Vaccine (#1) 2024 Care Teams Commercial Journeyman Electrician Relationship Specialty Start Date End Date Ady Jama MD [address] [place] [phone] PCP - General Family Medicine 10/28/20
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
--- NOTE | 2024-11-13 08:35 | ED.BACK ---
HPI - Back Pain/Injury General Chief Complaint: Back Pain/Injury Stated Complaint: back pain, fell at work Time Seen by Provider: 11/13/24 07:38 History of Present Illness HPI Narrative: Pt slipped and fell landing on her buttocks and low back at work this morning. Pt denies LOC or neck pain. Pt has pain in low back but denies numbness or tingling or weakness or problems with bladder or bowels. Related Data Home Medications ?Medication ?Instructions ?Recorded ?Confirmed ?Last Taken ?Type atorvastatin 1 tablet PO HS 05/10/20 08/09/24 Unknown History bupropion HCl 1 tablet PO DAILY 05/10/20 08/09/24 Unknown History levothyroxine 100 mcg tablet 100 mcg PO DAILY 05/10/20 08/09/24 Unknown History furosemide 20 mg tablet (Lasix) 20 mg PO QAM 09/09/23 08/09/24 Unknown History Allergies Allergy/AdvReac Type Severity Reaction Status Date / Time codeine Allergy Mild Vomiting Verified 11/13/24 07:01 anesthetics AdvReac Vomiting Uncoded 11/13/24 07:01 Review of Systems Review of Systems: All systems reviewed & are unremarkable except as noted in HPI and below PMFSH Past Medical History Medical History Gastritis Left lower quadrant abdominal pain Nausea Constipation Abdominal pain Mucus in stool Screening for breast cancer Diabetes type 2, controlled Hyperlipidemia Hypothyroidism Hypertension Surgical History Surgical History History of carpal tunnel release Hx of laparoscopic gastric banding H/O: hysterectomy Family History Family History Other COPD (chronic obstructive pulmonary disease) Depression Diabetes mellitus Hypertension Social History Social History Smoking status: Never smoker Alcohol intake: current Alcohol use details: occasional Substance use: never Living arrangements: alone Occupation/Education: occupation Gender identity (if verbalized by the patient): Female Sexual Orientation (if Verbalized by the Patient): Straight or Heterosexual Exam Const: General: healthy appearing and no acute distress Nutritional Appearance: well nourished Orientation/consciousness: patient oriented x3 Limitations: no limitations Eyes: Conjunctivae: conjunctivae normal EOM: EOMs intact bilaterally Neck: Neck: normal visual inspection Chest: Chest palpation & inspection: normal inspection of the chest and abnormal inspection of the chest Resp: Effort & Inspection: normal respiratory effort Auscultation: clear to auscultation bilaterally Cardio: Rate: regular rate Rhythm: regular rhythm GI: GI Palp: Yes Soft to palpation and No Tenderness to palpation present (GI) Auscultation: normal bowel sounds Back/Spine/Pelvis: Back: no CVA tenderness Other: tender low back with some spasm but no step off. Skin: General skin exam: normal color Rashes: no rashes Wounds: no wounds Neuro: General: patient oriented x3, moves all extremities, no focal motor deficits and CN's II-XI intact bilaterally Cranial nerves: Yes Nystagmus not present Speech: normal speech Extrem: General: normal to inspection and no clubbing, cyanosis or edema Psych: Mental Status: mental status grossly normal Affect: normal affect Attitude: cooperative Course Vital Signs Vital signs: Vital Signs Temperature 98 F 11/13/24 07:01 Pulse Rate 106 H 11/13/24 07:01 Respiratory Rate 16 11/13/24 07:01 Blood Pressure 133/87 11/13/24 07:01 Pulse Oximetry 100 11/13/24 07:01 Oxygen Delivery Room Air 11/13/24 07:01 Temperature 98 F 11/13/24 07:01 Pulse Rate 89 11/13/24 08:54 Respiratory Rate 14 11/13/24 08:54 Blood Pressure 128/72 11/13/24 08:54 Pulse Oximetry 97 11/13/24 08:54 Oxygen Delivery Room Air 11/13/24 07:01 MDM - Back Pain/Injury MDM Narrative Medical decision making narrative: Pt fel and landed on back. Has low back pain. will x ray. x rays neg. Home on pain meds and flexeril. Discharge Plan Discharge Clinical Impression: Strain of lumbar region Patient Disposition: Home, Self-Care Condition: Stable Instructions: Antibiotic Form, Acute Low Back Pain (ED) Patient Language: Portuguese Prescriptions: New naproxen [Naprosyn] 500 mg tablet 500 mg PO BID Qty: 20 0RF cyclobenzaprine 10 mg tablet 10 mg PO TID Qty: 14 0RF hydrocodone-acetaminophen 5-325 mg tablet 1 tablet PO Q6H PRN (Reason: pain) Qty: 14 0RF No Action furosemide [Lasix] 20 mg tablet 20 mg PO QAM omeprazole 40 mg capsule,delayed release(DR/EC) 40 mg PO DAILY 90 Days Qty: 90 3RF amitriptyline 25 mg tablet 50 mg PO QHS 30 Days Qty: 60 5RF ondansetron 4 mg tablet,disintegrating 4 mg PO Q8H PRN (Reason: nausea and vomiting) Qty: 30 5RF lubiprostone [Amitiza] 24 mcg capsule 24 mcg PO BID 90 Days Qty: 180 3RF All Day Allergy (cetirizine) 10 mg capsule 10 mg PO DAILY Qty: 30 0RF levothyroxine 100 mcg Tablet 100 mcg PO DAILY atorvastatin 1 tablet PO HS bupropion HCl 1 tablet PO DAILY Follow-up/Referrals: Torres,MD Hari [Primary Care Provider] - Stand Alone Forms: Work/School Release IP
[2024-11-13 08:54] VITALS: BP 128/72; PULSE 89; RESP 14; O2SAT 97
== END 2024-11-13 08:54 | disposition home or self-care (01) ==
PROVIDERS: Emergency Provider Emergency Medicine; PCP Internal Medicine
DX: S39.012A Strain of muscle, fascia and tendon of lower back, initial encounter (principal); W01.0XXA Fall on same level from slipping, tripping and stumbling without subsequent striking against object, initial encounter; E78.5 Hyperlipidemia, unspecified; E11.9 Type 2 diabetes mellitus without complications; E03.9 Hypothyroidism, unspecified; I10 Essential (primary) hypertension
CPT/HCPCS: 72100; 99283; A9270

== ENCOUNTER 2025-01-03 06:04 | Emergency (ER) | payer BC, MEDICARE, SELFPAY ==
[2025-01-03 06:05] VITALS: BP 140/94; PULSE 103; RESP 16; TEMP 36.7; O2SAT 98
--- OUTSIDE RECORDS SUMMARY | 2025-01-03 06:06 | XMS_ITS | Clinical Summary ---
Author Organization [facility] Address [address] [place] [address] Care Team Providers Care Associate Vice President Name Role Phone Hari Macdonald MD Primary Care Provider [phone] Allergies Active Allergy Reactions Criticality Noted Date Comments Amoxicillin Rash,Unknown Low 12/09/2020 Codeine Nausea and Vomiting,Nausea Only,Other (see comment),Vomiting Low 07/19/2015 Reaction: NAUSEA;, Reaction: NAUSEA;, Medications acetaminophen (TYLENOL) 325 MG tablet Take 2 tablets (650 mg total) by mouth every 6 (six) hours as needed. 02/12/20 Active albuterol sulfate HFA 108 (90 Base) MCG/ACT inhaler 02/27/20 Active Aripiprazole 20 MG Tab Take 1 tablet by mouth every evening. 02/04/20 Active atorvastatin (LIPITOR) 40 MG tablet Take 1 tablet (40 mg total) by mouth nightly at bedtime. 03/11/20 Active buPROPion XL (WELLBUTRIN XL) 150 MG 24 hr tablet Take 1 tablet (150 mg total) by mouth every morning. Active cyclobenzaprine (FLEXERIL) 10 MG tablet 03/23/20 Active WEGOVY 2.4 mg/dose injection (PEN) INJECT 2.4 MG SUBCUTANEOUSLY ONCE WEEKLY Active estradiol (ESTRACE) 0.5 MG tablet TAKE 1 TABLET BY MOUTH ONCE DAILY *PATIENT NEEDS APPOINTMENT FOR FURTHER REFILLS* 03/09/20 Active BREO ELLIPTA 200-25 MCG/ACT inhaler INHALE ONE (1) PUFF BY MOUTH DAILY 02/13/20 Active furosemide (LASIX) 20 MG tablet TAKE 1 TABLET BY MOUTH EVERY DAY NEEDED FOR ANKLE SWELLING 03/08/20 23 Active ONETOUCH VERIO test strip 3 (three) times daily. 06/02/20 22 Active Lancets (ONETOUCH DELICA PLUS [id number]) Misc 3 (three) times daily. 03/11/20 Active [...] hours if needed 10 tablet 3 05/11/20 23 Active Active Problems Problem Noted Date Diagnosed Date Cervical radiculopathy 05/12/2023 Overview (05/12/2023): Added automatically from request for surgery [id number] Social History Tobacco Use Types Packs/Day Years [...] 19+ 3-dose series) 1990 Mammogram Screening 2011 Pneumococcal Vaccine: 50+ Ye ars (1 of 1 - PCV) 2021 Zoster Vaccines (1 of 2) 2021 COVID-19 Vaccine (1 - 2023-2 5 season) 2024 PHQ-2 (Physician [place]) 08/23/2024 03/29/2023 DTaP, Tdap and Td Vaccines [...] age to complete this topic Insurance [employer] [address] Care Teams Associate Vice President Relationship Specialty Start Date End Date Hari Macdonald MD PCP - General INTERNAL MEDICINE 02/10/23
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
--- OUTSIDE RECORDS SUMMARY | 2025-01-03 06:06 | XMS_ITS | Clinical Summary ---
Author Organization [facility] Address [address] [place] [id number] Phone Care Team Providers Care Photographic Equipment Assembler Name Role Phone Ady Jama MD Primary Care Provider [phone] Allergies Active Allergy Reactions Criticality Noted Date Comments Amoxicillin Unknown 12/09/2020 Lidocaine Hcl Vomiting 12/09/2020 Codeine Nausea And Vomiting,nausea,Other (see comments),Vomiting Low 07/19/2015 Reaction: NAUSEA;, Medications ARIPiprazole (ABILIFY) 15 MG tablet 1 (one) [...] levothyroxine (SYNTHROID) 100 MCG tablet 11/04/2020 Active lisinopril-hydr oCHLOROthiazide (PRINZIDE) 10-12.5 MG per tablet 10/03/2020 Active Latuda 120 MG tablet 10/03/2020 Active metFORMIN XR 500 MG 24 hr tablet 10/03/2020 Active topiramate (TOPAMAX) 50 MG tablet Take 50 mg by mouth 2 (two) times a day 11/11/2020 Active traZODone (DESYREL) 50 MG tablet 10/10/2020 Active venlafaxine 225 MG 24 hr tablet 10/07/2020 Act melvina zolpidem (AMBIEN) 5 MG tablet Take 5 [...] buttock pain as well. Sees PM for [place] 5-325mg and has received multiple ESIs over [...] and routine exercise and provided PT referral ([facility] offers fibromyalgia pain program). Discussed fibromyalgia diagnosis and that her PCP or PM doctor could resume care of her treatment but she is welcome to return if she would prefer us to general store manager her care. Patient verbalized understanding. Seen [...] 0.6 oz pur e alcohol) ocassional use Comments Unknown Sex and Gender Information Value Date Recorded Sex Assigned at Not on file Legal Sex Female 11:22 AM MST Gender Identity Not on file Sexual Orientation [...] Due Date Last Done Comments Influenza Vaccine (Season Ended) 2025 Insurance MEDICARE ADVANTAGE [facility] Care Teams Photographic Equipment Assembler Relationship Specialty Start Date End Date Ady Jama MD [address] [place] [address] PCP - General Family Medicine 10/28/20
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
--- OUTSIDE RECORDS SUMMARY | 2025-01-03 06:07 | XMS_ITS | Data Portability ---
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 Allergen Name Allergen Category Reaction Reaction Severity Criticality Documentation Date Start Date Code Code System Note Provider Name and Address Organization Details Recorded Time 06508 codeine medicatio n Not available Not available Not available 03/20/2022 1880 RxNorm Italia Bravo [facility], [facility] 14:05:37 Medications Name Sig Start Date [...] Ultra-Fine Micro Pen Needle 32 gauge x /12/02 completed Not Available Not Available Not Available [...] Updated DateTime 03/20/2022 160.02 cm 24.3 kg/m2 46279.15 g 98 mm[Hg] 64 mm[Hg] [facility] 14:04:13 Date Recorded Body height Body mass index (BMI) Body weight Provider Name and Address Organization Details Last Updated DateTime 12/03/2023 160.02 cm 37.7 kg/m2 53886.17 g [facility] 12/03/2023 09:48:02 Date Recorded Systolic blood pressure Diastolic blood pressure Provider Name and Address Organization Details Last Updated DateTime 12/03/2023 130 mm[Hg] 82 mm[Hg] Sharron Doherty, [facility]- [address], [place], [address], [facility] 12/03/2023 10:26:55 Date Recorded Body height Body mass index (BMI) Body weight Systolic blood pressure Diastolic blood pressure Provider Name and Address Organization Details Last Updated DateTime 12/29/2023 160.02 cm 34.7 kg/m2 35271.1 g 122 mm[Hg] 81 mm[Hg] [facility] 14:16:49 Date Recorded Body height Body mass index (BMI) Body weight Systolic blood pressure Diastolic blood pressure Provider Name and Address Organization Details Last Updated DateTime 01/26/2024 160.02 cm 33.8 kg/m2 36208.14 g 108 mm[Hg] 78 mm[Hg] [facility] 4 10:11:58 Date Recorded Body height Body mass index (BMI) Body weight Systolic blood pressure Diastolic blood pressure Provider Name and Address Organization Details Last Updated DateTime 05/18/2024 160.02 cm 34.9 kg/m2 28950.7 g 131 mm[Hg] 72 mm[Hg] [facility] 4 11:41:23 Social History Question Answer Notes LastModified by Organizat ion Details LastModified Time Tobacco Smoking Status Never Smoker [facility] 03/20/2022 14:16:32 How Many Years Have You Consumed Alcohol? 30 Information not available 12/03/2023 Are You Blind Or Do You Have Difficulty Seeing? No Information n ot available 12/03/2023 What Is Your Level Of Caffeine Consumption? None Information not available 12/03/2023 How Much Tobacco Do You Chew? None Information not available 12/03/2023 In The 14 Days Before Symptom Onset, Have You Had Close Contact With A Laboratory-confirm ed COVID-19 While That Case Was Ill? No Information n ot available 12/03/2023 In The 14 Days Before [...] Of Diet Are You Following? REGULAR Information n ot available 12/03/2023 What Is The Highest Grade Or Level Of School You Have Completed Or The Highest Degree You Have Received? [id number] Information not available 12/03/2023 Are There Any [...] IV Drugs? No Information not available 12/03/2023 Sex: Unknown Functional Status Question Answer Note LastModified by Organizat ion Details LastModified Time Do you use any illicit or recreational drugs? No Information not available 12/03/2023 Do you or have you ever used any other forms of tobacco or nicotine? No Information not available 03/20/2022 What is your level of alcohol consumption? Occasional Information not available 03/20/2022 Are you able to walk? 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 None Information not available 12/03/2023 Mental Status Question Answer Note LastModified by Organization D etails LastModified Time Do you feel stressed (tense, restless, nervous, or anxious, or unable to sleep at night)? [id number] Information not available 12/03/2023 Family History Relationship Description Onset Age of [...] (Food, seasonal, environmental ) N Other N Breast Cancer N Drug/Latex Allergies/Reactions N Blood Transfusion N Dermatologic Disorders N Lung Disease N [...] SNOMED-CT Code Diagnosis ICD10 Code Diagnosis Note [id number] Huong Gandara REYES [facility] [address] [address] 03/18/2022 14:16:46 03/18/2022 17:41:43 Left without being seen [id number] 9102 Z53.21 Patient was not seen, arrived too late to be seen [id number] Gemini Burns MD [facility] [address] [address] 03/20/2022 13:29:45 03/24/2022 14:38:53 Pelvic floor tension [id number] R29.898 Pain in pelvis 86002286 R10.2 Constipation 20960472 K5 9.00 [id number] [facility] [address] [address] 12/03/2023 09:38:07 12/03/2023 11:35:16 Menopausal symptom 09061727 N95.1 Today we discussed restarting her estradiol that she tried to d/c a couple months ago.Her vasomotor sx's have returned and so have mood changes.Sh james is agreeable to this recommenda tion. Counseled on medication R/B's, Most common side effects, & use. All questions were answered to patient satisfacti on. Type 2 kizzy betes mellitus 68087257 E11.9 Z68.37 Today we discussed in detail [...] per day).She is walking outside, going to [employer], and is looking into other classes to [...] counseling and review of plan of care. [id number] Sharron Doherty , T[facility] [address] [address] 12/29/2023 14:12:15 12/29/2023 14:30:21 Menopausal symptom 43632242 N95.1 Doing exceptiona lly well on her Estradiol 1mgFeels more energy and desire sexuallyAl so feels that vaginal dryness has improved.W ishes to continue this method of therapy.RF sent Type 2 kizzy betes mellitus 47050034 E11.9 Z68.37 Doing exceptiona lly well on [...] counseling and review of plan of care. [id number] Sharron Doherty [facility] [address],[place] [address] 01/26/2024 09:40:56 01/26/2024 10:45:38 Type 2 diabetes mellitus 78038690 E11.9 Z68.37 Today we discussed her current progress with Roberto for DM2/Weight loss.She was unable to move up to 5mg due to shortage at the pharmacy.S he repeated a second month of 2.5mg and will go pickling solution maker 5mg at her pharmacy today.We will send Rx for 7.5mg to use in the following month; which she will f/u with Stacie Macdonald, LE[employer]SULT[employer] PCP.She is doing great and her weight-los [...] counseling and review of plan of care. [id number] Lincoln Andersen MD [facility] [address],[place] [address] 05/18/2024 11:30:51 05/18/2024 12:08:45
--- NOTE | 2025-01-03 06:15 | ED.GENADULT ---
HPI - General Adult General Chief complaint: Headache Stated complaint: migraine x 2 days Time Seen by Provider: 01/03/25 06:14 History of Present Illness HPI narrative: This is a 54-year-old female with history of migraines presenting for migraine. Patient says that 2 days ago she started pain developed in the back of her head and then spreads to the front right forehead. It is pounding in nature. It was not maximal in onset. No visual changes or loss of consciousness. No neurologic deficits. This is her typical migraine she has had many of these in the past. She has responded well to migraine cocktails before. Related Data Home Medications Medication Instructions Recorded Confirmed Last Taken Type atorvastatin 1 tablet PO HS 05/10/20 08/09/24 Unknown History bupropion HCl 1 tablet PO DAILY 05/10/20 08/09/24 Unknown History levothyroxine 100 mcg tablet 100 mcg PO DAILY 05/10/20 08/09/24 Unknown History furosemide 20 mg tablet (Lasix) 20 mg PO QAM 09/09/23 08/09/24 Unknown History Allergies Allergy/AdvReac Type Severity Reaction Status Date / Time codeine Allergy Mild Vomiting Verified 11/13/24 07:01 anesthetics AdvReac Vomiting Uncoded 11/13/24 07:01 [facility] Past Medical History Medical History Gastritis Left lower quadrant abdominal pain Nausea Constipation Abdominal pain Mucus in stool Screening for breast cancer Diabetes type 2, controlled Hyperlipidemia Hypothyroidism Hypertension Surgical History Surgical History History of carpal tunnel release Hx of laparoscopic gastric banding H/O: hysterectomy Family History Family History Other COPD (chronic obstructive pulmonary disease) Depression Diabetes mellitus Hypertension Social History Social History Smoking status: Never smoker Alcohol intake: current Alcohol use details: occasional Substance use: never Living arrangements: alone Occupation/Education: occupation Gender identity (if verbalized by the patient): Female Sexual Orientation (if Verbalized by the Patient): Straight or Heterosexual Exam Narrative: APPEARANCE: No apparent distress. Head: atraumatic. EYES: EOMI, PERRL NOSE: Atraumatic NECK: Trachea midline RESPIRATORY: No increased rate of breathing CARDIOVASCULAR: RRR, ABDOMINAL: Non-distended MUSCULOSKELETAl: No obvious deformities NEURO: Alert. Cranial nerves 2-12 grossly intact. Sensation light touch, motor function cerebellar function intact for 4 extremities. Gait exam was normal. SKIN:: Warm, dry. Normal color PSYCHIATRIC: Normal affect Course Vital Signs Vital signs: Vital Signs Temperature 98.1 F 01/03/25 06:05 Pulse Rate 103 H 01/03/25 06:05 Respiratory Rate 16 01/03/25 06:05 Blood Pressure 140/94 H 01/03/25 06:05 Pulse Oximetry 98 01/03/25 06:05 Oxygen Delivery Room Air 01/03/25 06:05 Temperature 98.1 F 01/03/25 06:05 Pulse Rate 103 H 01/03/25 06:05 Respiratory Rate 16 01/03/25 06:05 Blood Pressure 140/94 H 01/03/25 06:05 Pulse Oximetry 98 01/03/25 06:05 Oxygen Delivery Room Air 01/03/25 06:05 Medical Decision Making MDM Narrative Medical decision making narrative: -Course: 54-year-old female with migraines presenting her typical migraine. Neurologic exam is normal. No red flags on history physical. Treated with migraine cocktail. Patient will be discharged pending response to treatment. -DDX includes but is not limited to: Migraine, tension headache, sinus headache Vital Signs Vital Signs: Vital Signs Temperature 98.1 F 01/03/25 06:05 Pulse Rate 103 H 01/03/25 06:05 Respiratory Rate 16 01/03/25 06:05 Blood Pressure 140/94 H 01/03/25 06:05 Pulse Oximetry 98 01/03/25 06:05 Oxygen Delivery Room Air 01/03/25 06:05 Temperature 98.1 F 01/03/25 06:05 Pulse Rate 103 H 01/03/25 06:05 Respiratory Rate 16 01/03/25 06:05 Blood Pressure 140/94 H 01/03/25 06:05 Pulse Oximetry 98 01/03/25 06:05 Oxygen Delivery Room Air 01/03/25 06:05 Discharge Plan Discharge Clinical Impression: Migraine Patient Disposition: Home Condition: Stable Instructions: Antibiotic Form, Migraine Headache (ED) Additional Instructions: You were seen in the ED for a migraine. Please follow-up with your primary care physician for further management. If you develop worsening headache, altered mental status or any new or worsening symptoms please return to ED for re-evaluation. Patient Language: Argentine Prescriptions: No Action furosemide [Lasix] 20 mg tablet 20 mg PO QAM omeprazole 40 mg capsule,delayed release(DR/EC) 40 mg PO DAILY 90 Days Qty: 90 3RF amitriptyline 25 mg tablet 50 mg PO QHS 30 Days Qty: 60 5RF ondansetron 4 mg tablet,disintegrating 4 mg PO Q8H PRN (Reason: nausea and vomiting) Qty: 30 5RF All Day Allergy (cetirizine) 10 mg capsule 10 mg PO DAILY Qty: 30 0RF naproxen [Naprosyn] 500 mg tablet 500 mg PO BID Qty: 20 0RF cyclobenzaprine 10 mg tablet 10 mg PO TID Qty: 14 0RF hydrocodone-acetaminophen 5-325 mg tablet 1 tablet PO Q6H PRN (Reason: pain) Qty: 14 0RF levothyroxine 100 mcg Tablet 100 mcg PO DAILY atorvastatin 1 tablet PO HS bupropion HCl 1 tablet PO DAILY Linzess 290 mcg capsule 290 mcg PO DAILY 30 Days Qty: 30 11RF Follow-up/Referrals: Torres,MD Hari [Primary Care Provider] -
[2025-01-03] MEDS: diphenhydrAMINE HCl INJ 50 MG/ML VIAL 25 MG IV PUSH (06:32)
[2025-01-03] MEDS: KETOROLAC 15 MG/ML VIAL (*BKC) IV PUSH (06:33)
[2025-01-03] MEDS: PROCHLORPERAZINE EDISYLATE 10 MG/2 ML VIAL IM (06:33)
[2025-01-03] MEDS: ACETAMINOPHEN 500 MG TABLET 1000 MG PO (06:33)
[2025-01-03] MEDS: SODIUM CHLORIDE 0.9% IV 1,000 ML 999 ML IV CONT (06:34)
--- OUTSIDE RECORDS SUMMARY | 2025-01-03 06:38 | XMS_ITS | Clinical Summary ---
Author Organization [facility] Address [address] [place] [phone] Phone Care Team Providers Care Caustic Cresylate Shift Superintendent Name Role Phone Ady Jama MD Primary Care Provider Allergies Active Allergy Reactions Criticality Noted Date [...] buttock pain as well. Sees PM for [place] 5-325mg and has received multiple ESIs over [...] and routine exercise and provided PT referral ([facility] offers fibromyalgia pain program). Discussed fibromyalgia diagnosis and that her PCP or PM doctor could resume care of her treatment but she is welcome to return if she would prefer us to interactive account manager her care. Patient verbalized understanding. Seen [...] Vaccine (Season Ended) 2025 Insurance MEDICARE ADVANTAGE [facility] Care Teams Caustic Cresylate Shift Superintendent Relationship Specialty Start Date End Date Ady Jama MD [address] [place] [address] PCP - General Family Medicine 10/28/20
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
--- OUTSIDE RECORDS SUMMARY | 2025-01-03 06:38 | XMS_ITS | Clinical Summary ---
Author Organization [facility] Address [address] [place] [address] Care Team Providers Care Analytical Consultant Name Role Phone Hari Macdonald MD Primary Care Provider [phone] Allergies Active Allergy Reactions Criticality Noted Date [...] 06/02/20 22 Active Lancets (ONETOUCH DELICA PLUS [id number]) Misc 3 (three) times daily. 03/11/20 Active [...] (05/12/2023): Added automatically from request for surgery [id number] Social History Tobacco Use Types Packs/Day Years [...] - 2023-2 5 season) 2024 PHQ-2 (Physician [place]) 08/23/2024 03/29/2023 DTaP, Tdap and Td Vaccines [...] age to complete this topic Insurance [employer] [address] Care Teams Analytical Consultant Relationship Specialty Start Date End Date Hari Macdonald MD PCP - General INTERNAL MEDICINE 02/10/23
[2025-01-03 07:15] VITALS: BP 139/91; PULSE 71; RESP 15; O2SAT 98
[2025-01-03 08:43] VITALS: BP 131/86; PULSE 82; RESP 18; O2SAT 99
== END 2025-01-03 08:45 | disposition home or self-care (01) ==
LOC: ANHED 06:37
PROVIDERS: Emergency Provider Emergency Medicine; PCP Internal Medicine
DX: G43.909 Migraine, unspecified, not intractable, without status migrainosus (principal); I10 Essential (primary) hypertension; E11.9 Type 2 diabetes mellitus without complications; E78.5 Hyperlipidemia, unspecified; E03.9 Hypothyroidism, unspecified; Z90.710 Acquired absence of both cervix and uterus; Z98.84 Bariatric surgery status; Z79.899 Other long term (current) drug therapy
CPT/HCPCS: 96361; 96372; 96374; 96375; 99284; A9270; J0780; J1200; J1885; J7030

== ENCOUNTER 2025-06-15 12:45 | Outpatient (CLI) | payer BC, MEDICARE, SELFPAY ==
--- OUTSIDE RECORDS SUMMARY | 2025-06-13 19:53 | XMS_ITS | Encounter Summary ---
Author Organization [facility] Address [address] [place] [address] Care Team Providers Care Nurse Obgyn Name Role Phone German Grey MD Unavailable [phone] Hari Macdonald MD Primary Care Provider [phone] Reason for Referral * Sleep Medicine (Routine) - Closed Specialty Diagnoses / Procedures Referred By Contac t Referred To Contact Diagnoses CHRISTINE (obstructive sleep apnea) Procedures PSG-Sleep Provider Use Only Torres Cole MD [address] [place] [address] [address] [place] [address] Phone: tel: fax: [facility] [address] [place] [address] Phone: tel: fax: Referral ID Status Reason Start Date Expiration Date Visits Re quested Visits Authorized [id number] Closed 05/16/2025 06/15/2026 1 1 Reason for Visit * Sleep Medicine (Routine) - Closed Specialty Diagnoses / Procedures Referred By Contac t Referred To Contact Diagnoses CHRISTINE (obstructive sleep apnea) Procedures PSG-Sleep Provider Use Only Torres Cole MD [address] [facility] [address] [place] [address] Phone: tel: fax: [facility] [address] [place] [address] Phone: tel: fax: Referral ID Status Reason Start Date Expiration Date Visits Re quested Visits Authorized [id number] Closed 05/16/2025 06/15/2026 1 1 Encounter Details Date Type Department Care Team (Latest Contact Info) Description 06/13/2025 7:53 PM CDT - 06/13/2025 11:59 PM CDT Hospital Encounter [facility] [address] [place] [address] CHRISTINE (obstructive sleep apnea) Discharge Disposition: Discharge to home or self care Social History Tobacco Use Types Packs/Day Years [...] No 04/25/2020 Social Connection and Isolation Panel Answer Date Recorded Frequency of Communication with Friends and Fami ly Not on file 04/25/2020 Frequency of Social Gatherings with Friends and Family Not on file 04/25/2020 Attends [employer] Services Not on file 04/25 Active Member [...] you are drinking? 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 amLODIPine (NORVASC) 5 mg tablet 2 ARIPiprazole (ABILIFY) 20 mg tablet 2 ARIPiprazole (ABILIFY) 5 mg tablet 2 atorvastatin (LIPITOR) 40 mg tablet Take 1 tablet (40 mg total) by mouth nightly 4 8 Breo Ellipta 200-25 mcg/dose diskus inhaler 2 buPROPion XL (WELLBUTRIN XL) 300 mg 24 hr tablet Take 1 tablet (300 mg total) by mouth every morning 3 estradioL (ESTRACE) 1 mg tabletIndication s:Pelvic pain,Dysuria Take 1 tablet (1 mg total) by mouth daily 30 tablet 3 3 furosemide (LASIX) 20 mg tablet TAKE 1 TABLET BY MOUTH EVERY DAY NEEDED FOR ANKLE SWELLING 1 glycerin suppository Insert 1 suppository into the rectum daily as needed for constipation 90 suppository 2 2 levothyroxine (SYNTHROID, LEVOTHROID) 100 mcg tablet Take 1 tablet (100 mcg total) by mouth daily 2 8 Linzess 145 mcg capsule 2 lisinopril-hydro CHLOROthiazide (PRINZIDE,ZESTOR ETIC) 10-12.5 mg per tabletIndication s:hypertension Take 1 tablet by mouth daily 0 8 meloxicam (MOBIC) 15 mg tablet 3 metFORMIN XR (GLUCOPHAGE XR) 500 mg 24 hr tablet 0 omeprazole (PriLOSEC) 20 mg capsule 2 OneTouch Delica Plus Lancet 30 gauge misc [address] (PROTONIX) 40 mg EC tablet 2 primidone (MYSOLINE) 50 mg tablet 3 sertraline (ZOLOFT) 100 mg tablet Take by mouth 8 topiramate (TOPAMAX) 50 mg tablet 2 Trulicity 1.5 mg/0.5 mL pen injector 2 venlafaxine XR (EFFEXOR-XR) 150 mg 24 hr capsule TAKE 1 CAPSULE BY MOUTH EVERY DAY DIRECTED 3 Wegovy 2.4 mg/0.75 mL auto-injector 3 documented as of this encounter Discharge Disposition Disposition Code Departure Means Destination Discharge to home or self care documented in this encounter Miscellaneous Notes * Addendum Note - Torres Cole MD - 06/13/2025 8:00 PM CDTEncounter addended by: Torres Cole MD on: 06/14/2025 1:03 PM Actions taken: Charge Capture section accepted documented in this encounter Plan of Treatment Not on file documented as of this encounter Procedures Procedure Name Priority Date/Time Associated Diagnosis Comments PSG (COMPLEX) Routine 06/14/2025 1:02 PM CDT CHRISTINE (obstructive sleep apnea) documented in this encounter Results * PSG-Sleep Provider Use Only (06/14/2025 1:02 PM CDT) us Torres Cole MD SLEEP CENTER ORDERABLES F inal Result [facility] [address] documented in this encounter Visit Diagnoses Diagnosis CHRISTINE (obstructive sleep apnea) Obstructive sleep apnea (adult) (pediatric) documented in this encounter Care Teams Nurse Obgyn Relationship Specialty Start Date End Date Hari Macdonald MD [address] [place] [address] PCP - General Internal Medicine 02/03/22 German Grey MD [address] [place] [address] Consulting Physician Rheumatology 06/25/20 documented as of this encounter
--- NOTE | ~2025-06-15 | MR_ITS ---
EXAMINATION: MR shoulder LT wo con DATE: 06/15/2025 14:09 INDICATION: Left shoulder pain TECHNIQUE: Magnetic resonance imaging (MRI) of the left shoulder was performed without intravenous contrast. Sequences included axial PD-weighted FS FSE, coronal oblique PD-weighted FS FSE, coronal oblique T2-weighted FS FSE, sagittal PD-weighted FS FSE, and sagittal T1-weighted SE. COMPARISON: None. FINDINGS: Coracoacromial arch: The acromion undersurface is curved in morphology (type II). The coracoacromial ligament is normal. Moderate acromioclavicular osteoarthritis. Rotator cuff: Mild supraspinatus tendinopathy. There are suture anchors at the cephalad aspect of the lesser tuberosity and at the anteriormost greater tuberosity footplate of the rotator cuff tendon which could be related to either subscapularis and anterior supraspinatus tendon repairs and/or repair of the biceps teresa sling. No evident rotator cuff tear.. The infraspinatus and teres minor tendons are normal. Normal rotator cuff muscle bulk and signal. Biceps tendon, glenoid labrum and glenohumeral cartilage: Long head of the biceps tendon is normal. There is a superior, anterior to posterior tear of the glenoid labrum (SLAP tear) beginning at the 12:00 position and extending posteriorly and inferiorly to the 8:30 position. Glenohumeral cartilage is normal. Small marginal osteophytes along the inferomedial aspect of the humeral head. Fluid: Physiologic amount of fluid in the glenohumeral joint and biceps tendon sheath. No loose osteochondral bodies. Small amount of fluid in the subacromial/subdeltoid bursa consistent with mild bursitis. Bones: Normal marrow signal with fracture or abnormal marrow replacing process. IMPRESSION: 1. Mild supraspinatus and subscapularis tendinopathy without tear. Suture anchors at the cephalad aspect of the lesser tuberosity and anterior margin of the greater tuberosity which could be related to either prior subscapularis and supraspinatus tendon repairs respectively and/or repair of the biceps teresa sling. Correlate with surgical history. 2. SLAP tear of the superior to posterior glenoid labrum with minimal glenohumeral osteoarthritis. 3. Moderate acromioclavicular osteoarthritis. Reviewed, dictated and finalized at location A. IMPRESSION: 1. Mild supraspinatus and subscapularis tendinopathy without tear. Suture ancho rs at the cephalad aspect of the lesser tuberosity and anterior margin of the g reater tuberosity which could be related to either prior subscapularis and supr aspinatus tendon repairs respectively and/or repair of the biceps teresa sling. Correlate with surgical history. 2. SLAP tear of the superior to posterior glenoid labrum with minimal glenohume ral osteoarthritis. 3. Moderate acromioclavicular osteoarthritis.
--- NOTE | ~2025-06-15 | MR_ITS ---
EXAMINATION: MR shoulder RT wo con DATE: 06/15/2025 14:09 INDICATION: Right shoulder pain TECHNIQUE: Magnetic resonance imaging (MRI) of the right shoulder was performed without intravenous contrast. Sequences included axial PD-weighted FS FSE, coronal oblique PD-weighted FS FSE, coronal oblique T2-weighted FS FSE, sagittal PD-weighted FS FSE, and sagittal T1-weighted SE. COMPARISON: None. FINDINGS: Coracoacromial arch: The acromion undersurface is curved in morphology (type II). The coracoacromial ligament is normal. Severe acromioclavicular osteoarthritis. Rotator cuff: Mild supraspinatus and infraspinatus tendinopathy with small mild intrasubstance tear at the conjoined portion of the tendons which measures 5 mm AP and involves up to one third of the tendon thickness. The subscapularis and infraspinatus tendons are normal. Normal rotator cuff muscle bulk and signal. Biceps tendon, glenoid labrum and glenohumeral cartilage: Long head of the biceps tendon is normal. Very small tear at the chondral labral junction at the 9:00 position of the posterior glenoid labrum. There is an additional small tear at the 5:30-6:30 position of the inferior glenoid labrum. Glenohumeral cartilage is normal. Fluid: Physiologic amount of fluid in the glenohumeral joint. There is mild increased fluid in the long head biceps tendon sheath consistent with mild bicipital tenosynovitis.. No loose osteochondral bodies. No abnormal fluid subacromial/subdeltoid bursa to suggest bursitis. Bones: Normal marrow signal with fracture or pathologic marrow replacing process. IMPRESSION: 1. Mild supraspinatus and infraspinatus tendinopathy with very small intrasubstance tear footplate of the conjoined portion of the tendons. 2. Very small tear at the posterior glenoid labrum and small tear at the inferior glenoid labrum. 3. Severe acromioclavicular osteoarthritis. 4. Mild bicipital tenosynovitis. Reviewed, dictated and finalized at location A. IMPRESSION: 1. Mild supraspinatus and infraspinatus tendinopathy with very small intrasubst ance tear footplate of the conjoined portion of the tendons. 2. Very small tear at the posterior glenoid labrum and small tear at the inferi or glenoid labrum. 3. Severe acromioclavicular osteoarthritis. 4. Mild bicipital tenosynovitis.
--- OUTSIDE RECORDS SUMMARY | 2025-06-15 09:30 | XMS_ITS | Encounter Summary ---
Author Organization [facility] Address [address] [place] [address] Phone Care Team Providers Care Infection Prevention Specialist Name Role Phone Hari Macdonald MD Primary Care Provider [phone] Britt Baltazar APRN, NUCLEAR CARDIOLOGY TECHNOLOGIST Unavailable [phone] Reason for Visit * Reason Comments Migraine Encounter Details Date Type Department Care Team (Late st Contact Info) Description 06/15/2025 9:30 AM CDT Office Visit [facility] Neurology [facility] [address] [place] [address] Britt Baltazar, WINDMILL TECHNICIAN, NUCLEAR CARDIOLOGY TECHNOLOGIST [address] [place] [address] Chronic migraine w/o aura w/o status migrainosus, not intractable (Primary Dx); Hypertension, unspecified type Discharge Disposition: Discharged to home or Selfcare Social History Tobacco Use Types Packs/Day Years Used Date Smoking Tobacco: Never Smokeless Tobacco: Never Alcohol Use Standard Drinks/Week Comments Yes 0 (1 standard drink = 0.6 oz pur e alcohol) occasional Comments Unknown Sex and Gender Information Value Date Recorded Sex Assigned at Not on file Legal Sex Female 2:06 PM 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 Gender Identity Not on file Sexual Orientation Not on file documented as of this encounter Last Filed Vital Signs Vital Sign Reading Time Taken Comments Blood Pressure 112/82 06/15/2025 9:30 AM CDT Pulse 110 06/15/2025 9:30 AM CDT Temperature 36.3 C (97.3 F) 06/15/2025 9:30 AM CDT Respiratory Rate 16 06/15/2025 9:30 AM CDT Oxygen Saturation 100% 06/15/2025 9:30 AM CDT Inhaled Oxygen Concentration - - Weight 98.5 kg (217 lb 1.6 oz) 06/15/2025 9:30 A M CDT Height 160 cm (5' 3) 06/15/2025 9:30 AM CDT Body Mass Index 38.46 06/15/2025 9:30 AM CDT documented in this encounter Progress Notes * Britt Baltazar, WINDMILL TECHNICIAN, NUCLEAR CARDIOLOGY TECHNOLOGIST - 06/15/2025 9:30 AM CDT NEUROLOGY CONSULT Date of Service: 06/15/2025 Assessment and Plan Francoise was seen today for migraine. Diagnoses and all orders for this visit: Chronic migraine w/o aura w/o status migrainosus, not intractable - CMP (COMPREHENSIVE METABOLIC PANEL); Future - ketorolac (TORADOL) 10 MG Tablet; Take 1 Tablet by mouth every 4 hours as needed for Moderate or more severe pain (migraine). - topiramate (Topamax) 100 MG Tablet; Take 1 Tablet by mouth 2 times daily. Hypertension, unspecified type Assessment & Plan 1. Chronic migraines without aura without status, not intractable. - CMP - Start Toradol 10 mg as needed - Increase Topamax to 100 mg twice daily - Continue Botox 155 unit injections every 3 months - Continue Ubrelvy 100 mg as needed - Continue sumatriptan 100 mg as needed - Next appointment in 3 months 2. HTN -Stable -BP today 112/82 -Continue current medications Reason for office appointment: Migraine HPI: History of Present Illness Francoise Haro is a 55-year-old female who presents for follow-up regarding migraines. She was last seen by Dr. Blair on 03/13/2025, at which time she was experiencing migraines lasting 4 to 5 days each, with only 10 headache-free days in the past month, totaling 20 headache and migraine days.The treatment plan included initiating Botox injections, Ubrelvy 100 mg as needed, maintaining a headache diary, and continuing Topamax twice daily. She last received Botox injections on 04/27/[address] Blair. Since her last visit, Francoise reports having approximately 10 migraines, some lasting 3 to 4 days and others persisting for a few hours before subsiding with medication. In the past week, she has had 2 migraine days. She is scheduled for her second round of Botox on 07/27/2025. Ubrelvy was initiatedat her last appointment, which occasionally alleviates her symptoms but does not consistently stop the migraines. She often needs to supplement Ubrelvy with sumatriptan or extra strength Tylenol, particularly when the migraines persist for several days. Vomiting and sleep appear to provide some relief. A Medrol Dosepak prescribed by Dr. Blair in 03/2025 did not provide any benefit. She has received Toradol injections in the ER, which were more effective when administered in the shoulder compared to the buttocks. She has not been prescribed Toradol tablets. Her migraines typically originate in her neck and progress to affect her vision. She has not undergone physical therapy for her migraines. Interval: Since last visit, she has had approximately 10 migraines, with some lasting 3 to 4 days and others persisting for a few hours before subsiding with medication. In the past week, she has had2 migraine days. She is scheduled for her second round of Botox on 07/27/2025. Past Medical History Positives Diagnosis Date Diabetes mellitus Dizziness Hypertension Kidney disease Migraines Past Surgical History[1] No family history on file. Social History Tobacco Use Smoking status: Never Smokeless tobacco: Never Substance Use Topics Alcohol use: Yes Comment: occasional Allergies[2] Current Outpatient Medications: albuterol 108 (90 Base) MCG/ACT Aerosol Solution, take 2 Puffs by inhalation every 4 hours as needed., Disp: , Rfl: amLODIPine (NORVASC) 5 MG Tablet, Take 5 mg by mouth daily., Disp: , Rfl: atorvastatin (LIPITOR) 40 MG Tablet, Take 40 mg by mouth daily., Disp: , Rfl: buPROPion (WELLBUTRIN) 300 MG TABLET SR 24 HR XL tablet, Take 300 mg by mouth every morning., Disp:, Rfl: estradiol (ESTRACE) 1 MG Tablet, Take 1 mg by mouth daily. Hazardous: Medication requires special safe handling and disposal., Disp: , Rfl: furosemide (LASIX) 20 MG Tablet, Take 20 mg by mouth daily., Disp: , Rfl: ketorolac (TORADOL) 10 MG Tablet, Take 1 Tablet by mouth every 4 hours as needed for Moderate or more severe pain (migraine)., Disp: 10 Tablet, Rfl: 0 levothyroxine (SYNTHROID) 100 MCG Tablet, Take 100 mcg by mouth daily., Disp: , Rfl: liothyronine (CYTOMEL) 5 MCG Tablet, Take 5 mcg by mouth daily., Disp: , Rfl: Lurasidone HCl 60 MG Tablet, Take by mouth., Disp: , Rfl: omeprazole (PriLOSEC) 40 MG CAPSULE DELAYED RELEASE, Take 40 mg by mouth daily., Disp: , Rfl: ondansetron (ZOFRAN) 4 MG Tablet, Take 4 mg by mouth every 8 hours as needed., Disp: , Rfl: SUMAtriptan (IMITREX) 100 MG Tablet, Take 100 mg by mouth daily as needed. Use as directed. May repeat dose in 2 hours if headache recurs., Disp: , Rfl: topiramate (Topamax) 100 MG Tablet, Take 1 Tablet by mouth 2 times daily., Disp: 60 Tablet, Rfl: 0 Ubrogepant (Ubrelvy) 100 MG Tablet, Take 1 Tablet by mouth as needed for Other (migraine)., Disp: 10 Tablet, Rfl: 3 Review of Systems: A 14 point Review of Systems is obtained, and is negative other than that mentioned in the History of Present Illness. Objective: VITALS: Blood pressure 112/82, pulse 110, temperature 97.3 ??F (36.3 ??C), resp. rate 16, height 5'3 (1.6 m), weight 217 lb 1.6 oz (98.5 kg), SpO2 100%. Weight: Wt Readings from Last 1 Encounters: 06/15/25 217 lb 1.6 oz (98.5 kg) Body mass index is 38.46 kg/m??. EXAM: General appearance: alert, no distress, cooperative, appears stated age Head: Normocephalic, without obvious abnormality, atraumatic Extremities: extremities normal, atraumatic, no cyanosis or edema Neurologic: Mental: Fully alert and oriented to time, place, person, situation. There is no problem with concentration and attention. Verbal recall-normal. Visuospatial skills- normal. Fund of knowledge is good. Memory is good for recent and remote events. On cranial nerve exam, CN II: visual johnsno are full to confrontation. Fundi are clear without hemorrhage or exudate, discs are sharp.CN III: Pupils are equal, round and reactive bilaterally; CN III,IV, extraocular movements are full with normal saccades and normal pursuits. CN VIII: Hearing isintact bilaterally. CN V: Facial sensation is intact; CN VII: face is symmetric. CN IX: Palate elevates symmetrically. CN XII: Tongue is midline. CN XI: Shrug is 5/5. A motor examination was performed Muscles Tested Right Left Deltoid 5/5 5/5 Biceps 5/5 5/5 Triceps 5/5 5/5 Wrist Flexors 5/5 5/5 Wrist Extensors 5/5 5/5 By: Britt Baltazar APRN, CNS, 06/15/2025, 10:05 AM CDT Primary Care Physician: HARI MACDONALD MD [1] Past Surgical History: Procedure Laterality Date APPENDECTOMY HYSTERECTOMY LAP BAND [2] Allergies Allergen Reactions Amoxicillin Unknown Anesthetics, Amide Vomiting Codeine Vomiting documented in this encounter Plan of Treatment Upcoming Encounters Date Type Department Care Team (Late st Contact Info) Description 07/27/2025 9:30 AM 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 Procedure Visit [facility] Neurology [facility] [address] [place] [address] Marc Blair MD [address] [place] [address] 09/07/2025 9:30 AM 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 Office Visit [facility] [address] [place] [address] Katiuska Rainey APRN, ISSUING OPERATOR [address] [place] [address] Scheduled Orders Name Type Priority Associated Diagnoses Orde r Schedule CMP (COMPREHENSIVE METABOLIC PANEL) Lab Routine Chronic migraine w/o aura w/o status migrainosus, not intractable Expected: 06/15/2025, Expires: 08/14/2025 documented as of this encounter Visit Diagnoses Diagnosis Chronic migraine w/o aura w/o status migrainosus, not intractable- Primary Chronic migraine without aura, without mention of intractable migraine without mention of status migrainosus Hypertension, unspecified type documented in this encounter Care Teams Infection Prevention Specialist Relationship Specialty Start Date End Date Hari Macdonald MD [address] [place] [address] PCP - General Internal Medicine 10/19/24 Britt Baltazar APRN, NUCLEAR CARDIOLOGY TECHNOLOGIST [address] [place] [address] Nurse Practitioner Advanced Practice Nurse 06/15/25 documented as of this encounter
--- OUTSIDE RECORDS SUMMARY | 2025-06-15 12:48 | XMS_ITS | Encounter Summary ---
Author Organization [facility] Address [address] [place] [address] Phone Care Team Providers Care Radar Technician Name Role Phone Hari Macdonald MD Primary Care Provider [phone] Encounter Details Date Type Department Care Team (Late st Contact Info) Description 06/14/2025 Refill [facility] - Neurology [facility] [address] [place] [address] Marc Blair MD [address] [place] [address] Social History Tobacco Use Types Packs/Day Years Used Date Smoking Tobacco: Never Smokeless Tobacco: Never Alcohol Use Standard Drinks/Week Comments Yes 0 (1 standard drink = 0.6 oz pur e alcohol) occasional Comments Unknown Sex and Gender Information Value Date Recorded Sex Assigned at Not on file 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 Requested Prescriptions Pending Prescriptions Disp Refills Ubrogepant (Ubrelvy) 100 MG Tablet 10 Tablet 3 Sig: Take 1 Tablet by mouth as needed for Other (migraine). Not Delegated - Off Protocol Failed - 06/14/2025 10:08 AM Failed - This refill cannot be delegated Passed - Visit with relevant provider in past 12 months or upcoming 90 days Recent Visits Date Type Provider Dept 04/27/25 Procedure Visit Marc Blair MD [facility] Neurology [facility] [place] 03/13/25 Office Visit Marc Blair MD [facility] Neurology [facility] [place] Showing recent visits within past 365 days and meeting all other requirements Future Appointments Date Type Provider Dept 06/15/25 Appointment Britt Baltazar APRN, NASCAR PIT CREW PERSON [facility] Neurology [facility] Konstantin [place] 07/27/25 Appointment Marc Blair MD [facility] Neurology [facility] Konstantinkeshawn Teran Showing future appointments within next 90 days and meeting all other requirements * Telephone Encounter - Bonnie Herron CMA - 06/14/2025 8:35 AM CDT Requested Prescriptions Pending Prescriptions Disp Refills Ubrogepant (Ubrelvy) 100 MG Tablet 10 Tablet 3 Sig: Take 1 Tablet by mouth as needed for Other (migraine). documented in this encounter Plan of Treatment Upcoming Encounters Date Type Department Care Team (Late st Contact Info) Description 07/27/2025 9:30 AM TREE SURGEON HELPER Procedure Visit [facility] Neurology - [place] [address] [place] [phone] Marc Blair MD [address] [place] [address] 09/07/2025 9:30 AM TREE SURGEON HELPER Office Visit [facility] [address] [place] [address] Katiuska Rainey APRN, RECRUITING CONSULTANT [address] [place] [address] documented as of this encounter Visit Diagnoses Not on filedocumented in this encounter Care Teams Radar Technician Relationship Specialty Start Date End Date Hari Macdonald MD [address] [place] [address] PCP - General Internal Medicine 10/19/24 documented as of this encounter
--- OUTSIDE RECORDS SUMMARY | 2025-06-15 12:48 | XMS_ITS | Clinical Summary ---
Author Organization [facility] Address [address] [place] [address] Phone Care Team Providers Care System Analyst Name Role Phone Ady Jama MD Primary Care Provider [phone] Allergies Active Allergy Reactions Criticality Noted Date [...] buttock pain as well. Sees PM for [place] 5-325mg and has received multiple ESIs over [...] and routine exercise and provided PT referral ([facility] offers fibromyalgia pain program). Discussed fibromyalgia diagnosis and that her PCP or PM doctor could resume care of her treatment but she is welcome to return if she would prefer us to market research manager her care. Patient verbalized understanding. Seen [...] 10:38 AM CDT Height 160 cm (5' 3) 12/02/2020 10:38 AM CDT Body Mass Index 32.24 12/02/2020 10:38 AM CDT Plan of Treatment Health Maintenance Due Date Last Done Comments Influenza Vaccine (#1) 2025 Insurance MEDICARE ADVANTAGE [facility] Care Teams System Analyst Relationship Specialty Start Date End Date Ady Jama MD [address] [place] [address] PCP - General Family Medicine 10/28/20
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
--- OUTSIDE RECORDS SUMMARY | 2025-06-15 12:48 | XMS_ITS | Patient Health Record ---
Author Organization [facility], Address [address] [place] [address] Care Team Providers Care Leasing Director Name Role Phone Ady Jama Primary Care Provider Unavailaugustine e Hari Alvarado Unavailable [phone] Dontae Mchugh Unavailable Unavailable ALLERGIES Allergen (clinical drug ingredient) Drug/Non Drug Allergy documented on EMR Reaction Allergy Type Onset Date Status codeine Codeine vomiting Drug Allergy Active anesthesia (uncoded) vomiting Allergy Active REASON FOR REFERRAL No Information MEDICATIONS Medication SIG (Take, Route, Frequency, Duration) Notes Start Date End Date Status Lisinopril-hydroCHLOROthiazi de Active Levothyroxine Sodium Active buPROPion HCl Active Hydrocodone Bitartrate Active Estradiol Active metFORMIN HCl Active Latuda Active Atorvastatin Calcium Active Phentermine HCl Acti ve Topiramate Active rOPINIRole HCl Activ e Gabapentin Active Diclofenac Active [place] 3 Active PROBLEMS Problem Type ICD Code Onset Dates Problem Status W/U Status Risk SNOMED Code Notes Problem Cubital tunnel syndrome, bilateral (G56.23) Active confirmed Lesion of ulnar nerve ([id number]) PLAN OF TREATMENT No Information Insurance Providers Payer Name Payer Address Payer Phone Subscriber Number Group Number Insured Name Patient Relationship to Insured Coverage Start Date Coverage End Date [facility] Medicare Complete PPO [address] [address] [place] [address] [id number] Francoise Dixon Self - patient is the insured [place] [address] [address] [place] [address] [id number] Francoise Dixon Self - patient is the insured MEDICAL (GENERAL) HISTORY Medical History History ICD Code hypertension thyroid disease diabetes mellitus anxiety depression bipolar disorder Surgical History Surgery Date(Month/Year) hysterectomy 1994 [facility]
--- OUTSIDE RECORDS SUMMARY | 2025-06-15 12:48 | XMS_ITS | Clinical Summary ---
Author Organization [facility] Address [address] [place] [address] Phone Care Team Providers Care Parole Supervisor Name Role Phone Hari Macdonald MD Primary Care Provider [phone] Britt Baltazar APRN, DATABASE MODELER Unavailable [phone] Allergies Active Allergy Reactions Criticality Noted Date Comments Amoxicillin Unknown 10/19/2024 Anesthetics, Amide Vomiting 10/19/2024 Codeine Vomiting 10/19/2024 Medications albuterol 108 (90 Base) MCG/ACT Aerosol Solution take 2 Puffs by inhalation every 4 hours as needed. Active amLODIPine (NORVASC) 5 MG Tablet Take 5 mg by mouth daily. Active atorvastatin (LIPITOR) 40 MG Tablet Take 40 mg by mouth daily. Active buPROPion (WELLBUTRIN) 300 MG TABLET SR 24 HR XL tablet Take 300 mg by mouth every morning. Active estradiol (ESTRACE) 1 MG Tablet Take 1 mg by mouth daily. Hazardous: Medication requires special safe handling and disposal. Active furosemide (LASIX) 20 MG Tablet Take 20 mg by mouth daily. Active levothyroxine (SYNTHROID) 100 MCG Tablet Take 100 mcg by mouth daily. Active liothyronine (CYTOMEL) 5 MCG Tablet Take 5 mcg by mouth daily. Active Lurasidone HCl 60 MG Tablet Take by mouth. Ac tive omeprazole (PriLOSEC) 40 MG CAPSULE DELAYED RELEASE Take 40 mg by mouth daily. Active ondansetron (ZOFRAN) 4 MG Tablet Take 4 mg by mouth every 8 hours as needed. Active SUMAtriptan (IMITREX) 100 MG Tablet Take 100 mg by mouth daily as needed. Use as directed. May repeat dose in 2 hours if headache recurs. Active Ubrogepant (Ubrelvy) 100 MG Tablet Take 1 Tablet by mouth as needed for Other (migraine). 10 Tablet 3 06/14/20 Active ketorolac (TORADOL) 10 MG TabletIndicatio ns:Chronic migraine w/o aura w/o status migrainosus, not intractable Take 1 Tablet by mouth every 4 hours as needed for Moderate or more severe pain (migraine). 10 Tablet 06/15/20 Active topiramate (Topamax) 100 MG TabletIndicatio ns:Chronic migraine w/o aura w/o status migrainosus, not intractable Take 1 Tablet by mouth 2 times daily. 60 Tablet 06/15/20 Active zolpidem (AMBIEN) 10 MG Tablet 5 08/28/19 25 Discontin ued(Med List Clean Up) amitriptyline (ELAVIL) 25 MG Tablet Take 25 mg by mouth nightly. Discontin ued(Med List Clean Up) lubiprostone (AMITIZA) 24 MCG Capsule Take by mouth 2 times daily (with meals). Discontin ued(Med List Clean Up) Tirzepatide (Mounjaro) 10 MG/0.5ML Solution Auto-injector by Subcutaneous route. Discontin ued(Med List Clean Up) Topiramate 50 MG Tablet Take 50 mg by mouth 2 times daily. Discontin ued(Dose adjustmen t) Phentermine HCl 37.5 MG Tablet 0 03/07/20 25 Discontin ued(Med List Clean Up) Ubrogepant (Ubrelvy) 100 MG Tablet Take 1 Tablet by mouth as needed for Other (migraine). 10 Tablet 3 03/13/20 25 Discontin ued(Reord er) methylPREDNISol one (MEDROL DOSPACK) 4 MG Tablet Therapy PackIndications :Chronic migraine w/o aura w/o status migrainosus, not intractable Use as per instructions on package. 1 Tablet 04/09/20 Discontin ued(Thera py completed ) Active Problems No known active problems Encounters Date Type Department Care Team Description 06/15/2025 9:30 AM CDT Office Visit [facility] - Neurology [facility] [address] [place] [address] Britt Baltazar, CANE FLUME CHUTE OPERATOR, DATABASE MODELER Chronic migraine w/o aura w/o status migrainosus, not intractable (Primary Dx); Hypertension, unspecified type Discharge Disposition: Discharged to home or Selfcare 06/15/2025 Travel 06/14/2025 Refill [facility] [address] [place] [address] Marc Blair MD 04/27/2025 9:15 AM CDT Procedure Visit [facility] [address] [place] [address] Marc Blair MD Chronic migraine w/o aura w/o status migrainosus, not intractable (Primary Dx) Discharge Disposition: Discharged to home or Selfcare 04/27/2025 Travel 04/09/2025 Telephone [facility] [address] [place] [address] Marc Blair MD from Last 3 Months Social History Tobacco Use Types Packs/Day Years Used Date Smoking Tobacco: Never Smokeless Tobacco: Never Tobacco Cessation:Counseling Given: Not Answered Alcohol Use Standard Drinks/Week Comments Yes 0 (1 standard drink = 0.6 oz pur e alcohol) occasional Comments Unknown Sex and Gender Information Value Date Recorded Sex Assigned at Not on file Legal Sex Female 2:06 PM PNEUMATIC TESTER MECHANIC Gender Identity Not on file Sexual Orientation [...] Mass Index 38.46 06/15/2025 9:30 AM CDT Plan of Treatment Upcoming Encounters Date Type Department Care Team (Late st Contact Info) Description 07/27/2025 9:30 AM PNEUMATIC TESTER MECHANIC [facility] [address] [place] [phone] Marc Blair MD [address] [place] [address] 09/07/2025 9:30 AM PNEUMATIC TESTER MECHANIC [facility] [place] [address] Katiuska Rainey APRN, AGRICULTURAL AIRCRAFT PILOT [address] [place] [address] Health Maintenance Due Date Last Done Comments Hepatitis C Virus (HCV) Screening 1971 Mammogram 1971 TdaP Immunization 1971 Hepatitis B Immunization (1 of 3 - 19+ 3-dose series) 1990 Cologuard 2016 Immunochemical Fecal Occult Blood 2016 Pneumococcal Immunization (5 0+ years) (1 of 1 - PCV) 2021 Zoster Immunization (1 of 2) 2021 Welcome to Medicare (IPPE) [id number] 08/23/2024 Influenza Immunization (#1) 2025 SARS-COV-2 Immunization ( - season) 2025 Colonoscopy 01/29/2032 01/28/2022 Colorectal Cancer Screening 01/29/2032 Respiratory Syncytial Virus (RSV) Immunization (Adult) (1 - 1-dose 75+ series) 2046 Human Papillomavirus (HPV) Immunization Aged Out No longer eligible b ased on patient's age to complete this topic Meningococcal Immunization (ACWY) Aged Out No longer eligible based on patient's age to complete this topic Rotavirus Immunization Aged Out No lo nger eligible based on patient's age to complete this topic Procedures Procedure Name Priority Date/Time Associated Diagnosis Comments CHEMODENERV MUSCLE(S) BILAT FACIAL/TRIGEMINAL/CE RV SPINE Routine 04/27/2025 9:15 AM CDT Chronic migraine w/o aura w/o status migrainosus, not intractable from Last 3 Months Results * CHEMODENERV MUSCLE(S) BILAT FACIAL/TRIGEMINAL/CERV SPINE (04/27/2025 9:15 AM CDT) Narrative Marc Blair MD - 04/27/2025 9:15 AM CDT Marc Blair MD 04/27/2025 12:47 PM Francoise presents for administration of botox for treatment of chronic migraines. She presents for an initial evaluation. Wasted amount of Botox: 45 Her skin was prepped with an alcohol wipe. Botox was diluted with 200 units into 4 ml saline and administered with a 30 gauge 1/2 inch needle to the following sites: To the corrugators 10 units was divided into two sites. To the procerus 5 units was admistered to 1 site To the frontalis 20 units was divided into 4 sites To the temporalis 40 units was divided into 8 sites To the Occipitalis 30 units was divided into 6 sites To the cervical paraspinals 20 units divided into 4 sites To the trapezius 30 units divided into 6 sites. This procedure has been fully reviewed with the patient and written informed consent has been obtained. Patient tolerated the procedure with no complications. us Marc Blair MD [place] - SURGERY Final Result from Last [address], [place] [id number] [place] [address] [facility]ICARE C [facility] Care Teams Parole Supervisor Relationship Specialty Start Date End Date Hari Macdonald MD [address] [place] [address] PCP - General Internal Medicine 10/19/24 Britt Baltazar, CANE FLUME CHUTE OPERATOR, DATABASE MODELER [address] [place] [address] Nurse Practitioner Advanced Practice Nurse 06/15/25
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
--- OUTSIDE RECORDS SUMMARY | 2025-06-15 12:49 | XMS_ITS | Encounter Summary ---
Author Organization [facility] Care Team Providers Care Pipe Layer Helper Name Role Phone Hari Macdonald MD Primary Care Provider [phone] Britt Baltazar APRN, EBD SPECIAL EDUCATION TEACHER Unavailable [phone] Encounter Details Date Type Department Care Team (Latest Contact Info) Description 06/15/2025 Travel Social History Tobacco Use Types Packs/Day Years Used Date Smoking Tobacco: Never Smokeless Tobacco: Never Alcohol Use Standard Drinks/Week Comments Yes 0 (1 standard drink = 0.6 oz pur e alcohol) occasional Comments Unknown Sex and Gender Information Value Date Recorded Sex Assigned at Not on file Legal Sex Female 2:06 PM TIME PIECE REPAIRER Gender Identity Not on file Sexual Orientation Not on file documented as of this encounter Plan of Treatment Upcoming Encounters Date Type Department Care Team (Late st Contact Info) Description 07/27/2025 9:30 AM TIME PIECE REPAIRER Procedure Visit [facility] Neurology [facility] [address] [place] [id number] Marc Blair MD [address] [place] [address] 09/07/2025 9:30 AM TIME PIECE REPAIRER Office Visit [facility] Neurology [facility] [address] [place] [address] Katiuska Rainey APRN, WHEEL OF FORTUNE DEALER [address] [place] [address] documented as of this encounter Visit Diagnoses Not on filedocumented in this encounter Care Teams Pipe Layer Helper Relationship Specialty Start Date End Date Hari Macdonald MD [address] [place] [address] PCP - General Internal Medicine 10/19/24 Brtit Baltazar APRN, EBD SPECIAL EDUCATION TEACHER [address] [place] [address] Nurse Practitioner Advanced Practice Nurse 06/15/25 documented as of this encounter
== END 2025-06-15 12:46 | disposition home or self-care (01) ==
LOC: ANHIMG 12:46
PROVIDERS: PCP Internal Medicine; Visit Provider Orthopaedic Surgery
DX: M75.82 Other shoulder lesions, left shoulder (principal); M75.81 Other shoulder lesions, right shoulder; S46.812A Strain of other muscles, fascia and tendons at shoulder and upper arm level, left arm, initial encounter; X58.XXXA Exposure to other specified factors, initial encounter; M19.012 Primary osteoarthritis, left shoulder
CPT/HCPCS: 73221

== ENCOUNTER 2025-08-15 14:21 | Outpatient (CLI) | payer BC, MEDICARE, SELFPAY ==
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
--- OUTSIDE RECORDS SUMMARY | 2025-08-15 14:27 | XMS_ITS | Clinical Summary ---
Author Organization [facility] Address [address] [place] [address] Care Team Providers Care Java Lead Engineer Name Role Phone Hari Macdonald MD Primary Care Provider [phone] Allergies Active Allergy Reactions Criticality Noted Date [...] 06/02/20 22 Active Lancets (ONETOUCH DELICA PLUS [id number]) Misc 3 (three) times daily. 03/11/20 Active [...] (05/12/2023): Added automatically from request for surgery [id number] Social History Tobacco Use Types Packs/Day Years [...] 10:19 AM CDT Height 160 cm (5' 3) 05/26/2023 10:19 AM CDT Body Mass Index [...] 2021 Zoster Vaccines (1 of 2) 2021 PHQ-2 (Physician [place]) 08/23/2024 COVID-19 Vaccine (1 - 2024-2 6 season) 2025 Influenza Adult (#1) 2025 DTaP, Tdap and Td Vaccines ( 2 - Td or Tdap) 02/10/2033 02/10/2023 Hepatitis A Vaccines Aged Out No long er eligible based on patient's age to complete this topic Meningococcal B Vaccine Aged Out No l onger eligible based on patient's age to complete this topic Meningococcal Vaccine Aged Out No brianna ashley eligible based on patient's age to complete this topic RSV Immunizations Under 20 Months Aged Out No longer eligible based on patient's age to complete this topic Insurance [employer] [address] MEDICARE Care Teams Java Lead Engineer Relationship Specialty Start Date End Date Hari Macdonald MD PCP - General INTERNAL MEDICINE 02/10/23
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
--- OUTSIDE RECORDS SUMMARY | 2025-08-15 14:27 | XMS_ITS | Continuity of Care Document ---
Author Organization [facility] [place] Address [address] [place] [address] Care Team Providers Care International Trade Compliance Manager Name Role Phone MIKEY BROUSSARD Primary Care Provider Assessment Encounter Date Assessment Date Assessment LastModified by Organization Details LastModified Time 05/23/2025 05/23/2025 Annual gynecological exam performed. Patient will come back in a year unless there are new symptoms. [email or web address] Not available 05/23/2025 14:12:19 Plan of Treatment Reminders Order Date Submit Date Provider Last Modified By Organization Details Last Modified Time Details Appointments None recorded. Lab pap, IG + HR HPV - HPV regardless but if HPV is positive need subtyping 16,18/45 2024 [facility] (Lab), [address], [place], [address], 21:12:57 HbA1c (hemoglobin A1c), blood [address] (Lab), [address], [place], [address], 11:47:23 Referral None recorded. Procedures None recorded. Surgeries None recorded. Imaging None recorded. Medication Orders estradiol 1 mg tablet 2024 025 [id number], [address], [place], [id number], 14:41:54 Mounjaro 10 mg/0.5 mL subcutaneou s pen injector 2024 025 [id number], [address] [facility], [place], [place], [id number], 14:43:18 Patient TargetsNo targets recorded. Patient InstructionsNo instructions recorded. Reason for Referral None Reported. Results Created Date Observation Date Name Description Value Unit Range Abnormal Flag Note LastModifiedBy Organization Detail LastModifiedTime 05/23/2005/23/2025 IMAGE GUIDE D PAP AND HPV REGAR DLESS image guided Pap, HPV regardless of Pap result SEE RESULT S BELOW CASE REPOR T: Cytol ogy Gynec ologi [place] Repor t Case: [id number] Autho chalo isatu Provi lizabeth: Ovidio Andersen MD Colle cted: 05/23 1420 Order ing Locat ion: [place] [facility] Recei radha: 05/24 0106 First Justo n: Margarita Payan ed, CT Speci men: Justo garcia Pap - Image d, Vagin a STATE MENT OF ADEQU ACY: Satis facto ry for evalu ation ----- ----- ----- ----- ----- ----- ----- ----- ----- ----- ----- ----- ----- ----- ----- ----- ----- ---- FINAL DIAGN OSIS: Negat melvina for Intra epith elial Gerber johnson or Cecilia armstrong ([facility]) . Octavio macedo by Margarita Payan ed, CT on 2024 at 2007 CDT ----- ----- ----- ----- ----- ----- ----- ----- ----- ----- ----- ----- ----- ----- ----- ----- ----- ---- HPV RESUL TS: HPV mRNA E6/E7 : No HPV mRNA Detec amanda NOTE: This high risk HPV mRNA assay [...] is recom bruno d, as clini lennie lobo nted. Not Available [facility] (Lab) [address], [place], [address], 05/25/2025 21:12:57 Result Notes None recorded. Problems Name Problem SNOMED Code Status Onset Date Resolution Date Notes Provider Name and Address Organization Details Recorded Time Diabetes mellitus [id number] Active 025 Lashon Torres [facility] 16:45:30 Notes:Some problems listed i n Document: #[id number] could not be added to this patient's chart. Please review this document and add these problems to the patient's chart manually as needed. Problem Notes None recorded. Procedures Surgical History Date Name Laterality Status Provider Name and Address Organization Details Recorded Time 05/18/20 24 Date of Last Pap Smear completed Sharmila Elizabeth [facility] 05/23/2025 14:12:33 06/05/20 22 completed [facility] 12/03/2023 09:49:05 12/06/19 22 Date of Last Colonoscopy completed [facility] 12/03/2023 09:49:05 08/23/19 22 Colonoscopy completed [facility] 12/03/2023 09:57:03 08/23/19 19 Total Hysterectomy completed [facility] 03/20/2022 14:17:44 01/22/20 09 Carpal tunnel surgery completed [facility] 03/20/2022 14:18:04 03/23/19 94 Partial Hysterectomy completed [facility] 03/20/2022 14:17:27 Imaging Results None recorded. Procedure Notes None recorded. Medical Equipment None Reported. Allergies Allergen ID Allergen Name Allergen Category Reaction Reaction Severity Criticality Documentation Date Start Date Code Code System Note Provider Name and Address Organization Details Recorded Time 40478 codeine medicatio n Not available Not available Not available 03/20/[address] [facility] 14:05:37 Medications Name Sig Start Date Stop Date Status Note LastModified by Organization Details LastModified Time Prescriptio n - Prior Authorizati on Request active Not Available Not Available N ot Available cyclobenzap rine 10 mg tablet TAKE 1 TABLET BY MOUTH THREE TIMES DAILY 05/23 completed Not Available Not Available Not Available amoxicillin 500 mg capsule 03/20 completed Not Available Not Available Not Available atorvastati n 40 mg tablet TAKE 1 TABLET BY MOUTH EVERY EVENING active Not Available Not Available No t Available buspirone 5 mg tablet TAKE 1 TABLET BY MOUTH TWICE DAILY DIRECTED active Not Available Not Available No t Available prednisone 10 mg tablet 05/23 completed Not Available Not Available Not Available [...] MOUTH EVERY 6 HOURS NEEDED FOR PAIN 05/23 completed Not Available Not Available Not Available meloxicam 15 mg tablet TAKE 1 TABLET BY MOUTH EVERY DAY 05/23 completed Not Available Not Available Not Available rizatriptan 10 mg tablet TAKE 1 TABLET BY MOUTH NEEDED FOR MIGRAINE. MAY REPEAT 1 TABLET IN 2 HOURS IF NEEDED 05/23 completed Not Available Not Available Not Available venlafaxine ER 150 mg capsule,ext ended release 24 hr TAKE 1 TABLET BY MOUTH EVERY DAY DIRECTED 12/02 completed Not Available Not Available Not Available phentermine 37.5 mg tablet TAKE 1 TABLET BY MOUTH 2 HOURS AFTER BREAKFAST 05/23 completed Not Available Not Available Not Available [...] TABLETS BY MOUTH EVERY DAY AT BEDTIME 05/23 completed Not Available Not Available Not Available estradiol 1 mg tablet TAKE 1 TABLET BY MOUTH EVERY DAY WITH A MEAL FOR 30 DAYS 2024 active Not Available Not Available Not Daríoai labmichael OneTouch Ultra Test strips USE TO TEST [...] Available Not Available doxepin 10 mg/mL oral concentrate TAKE 1 ML BY MOUTH EVERY DAY AT BEDTIME active Not Available Not Available No t Available omeprazole 20 mg capsule,del ayed release 03/20 completed Not Available Not Available Not Available diclofenac sodium 75 mg tablet,opal yed release TAKE 1 TABLET BY MOUTH TWICE [...] TABLET BY MOUTH EVERY DAY AT BEDTIME 05/23 completed Not Available Not Available Not Available methylpredn isolone 4 mg tablets in a dose pack FOLLOW PACKAGE DIRECTION S 05/23 completed Not Available Not Available Not Available albuterol sulfate HFA 90 mcg/actuati on aerosol inhaler INHALE 2 PUFFS BY MOUTH EVERY 4 HOURS NEEDED active Not Available Not Available No t Available celecoxib 100 mg capsule TAKE 1 CAPSULE BY MOUTH TWICE DAILY 05/23 completed Not Available Not Available Not Available ondansetron 4 mg disintegrat ing tablet DISSOLVE 1 TABLET ON THE TONGUE EVERY 8 HOURS NEEDED FOR NAUSEA OR VOMITING 05/23 completed Not Available Not Available Not Available [...] completed Not Available Not Available Not Available naproxen 500 mg tablet TAKE 1 TABLET BY MOUTH TWICE DAILY 05/23 completed Not Available Not Available Not Available [...] MOUTH EVERY DAY NEEDED FOR CONSTIPAT ION 05/23 completed Not Available Not Available Not Available Rozerem 8 mg tablet TAKE ONE TABLET BY MOUTH EVERY NIGHT AT BEDTIME 03/20 completed Not Available Not Available Not Available venlafaxine 12/02 completed Not Available Not Available Not Available lubiproston e 24 mcg capsule TAKE 1 CAPSULE BY MOUTH TWICE DAILY FOR CONSTIPAT ION 05/23 completed Not Available Not Available Not Available [...] Not Available Not Available No t Available lurasidone 20 mg tablet TAKE 1 TABLET BY MOUTH EVERY DAY IN THE EVENING FOR 7 DAYS 12/02 completed Not Available Not Available Not Available Linzess 145 mcg capsule 03/20 completed Not Available Not Available Not Available lurasidone 60 mg tablet TAKE 1 TABLET BY MOUTH EVERY DAY WITH A MEAL 05/23 completed Not Available Not Available Not Available [...] No t Available Wegovy 2.4 mg/0.75 mL subcutaneou s pen injector INJECT 2.4 MG SUBCUTANE OUSLY ONCE WEEKLY 12/02 completed Not Available Not Available Not Available Mounjaro 7.5 mg/0.5 mL subcutaneou s pen injector Inject 7.5 mg every week by subcutane ous route as directed for 30 days. 05/23 completed Not Available Not Available Not Available Mounjaro 5 mg/0.5 mL subcutaneou s pen injector ADMINISTE R 5 MG UNDER THE SKIN EVERY WEEK DIRECTED 05/23 completed Not Available Not Available Not Available Mounjaro 10 mg/0.5 mL subcutaneou s pen injector INJECT 10 MG SUBCUTANE OUSLY WEEKLY active Not Available Not Available No t Available Mounjaro 2.5 mg/0.5 mL subcutaneou s pen injector ADMINISTE R 2.5 MG UNDER THE SKIN EVERY WEEK DIRECTED 01/25 completed Not Available Not Available Not Available Vitals Date Recorded Body height Body mass index (BMI) Body weight Systolic And Diastolic Provider Name and Address Organization Details Last Updated DateTime 05/23/2025 160.02 cm 37.1 kg/m2 28698.96 g 114/78 mm[Hg] Sharmila Wongton [facility] 05/23/2025 14:19:31 Social History Question Answer Notes LastModified by Organizat ion Details LastModified Time Tobacco Smoking Status Never Smoker Italia ramirez, [facility] 03/20/2022 14:16:32 How Many Years [...] Or The Highest Degree You Have Received? [id number] Information not available 12/03/2023 Are There Any [...] not available 03/20/2022 Are you able to walk independently without assistance or assistive devices? 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 None Information not available 12/03/2023 Mental Status Question Answer Note LastModified by Organization D etails LastModified Time Do you feel stressed (tense, restless, nervous, or anxious, or unable to sleep at night)? [id number] Information not available 12/03/2023 Family History Relationship [...] Not available 2021 14:16:10 Maternal Grandmother Malignant neoplasm of cervix uteri [email or web address] Not available 14:19:10 Medical History Condition Response Allergies (Food, seasonal, environmental ) N Other N Drug/Latex Allergies/Reactions N Blood Transfusion N Breast Cancer N Dermatologic Disorders N Lung Disease N Defects or Inherited Disease N Breast Problem N Gestational Diabetes N Hematologic disorders N Anesthesia Complications N History of STI N Deep Vein Thrombosis N Polycystic ovary syndrome N Anxiety Disorder N Autoimmune disease N Arthritis N Polyps N Infertility N Acid Reflux (GERD) Y History of abnormal pap N Cancer N Varicosities N Stroke N Neurologic/Epilepsy N Endometriosis N High Cholesterol Y Fibromyalgia N Headaches Y Kidney Disease N Heart Problems N Thyroid Problems Y Kidney or Bladder Problems N GI Problems N Eating Disorder N Anemia [...] History Statement/Question Response Date of Last Mammogram N On BCP's at Conception? N STIs/STDs N Was last menstrual period normal Y HPV Vaccine N Duration of Flow (days) 0 Current Control Method Hysterectom y Age at First Child 17 If Post Menopausal, Age at Menopause 53 Are cycles usually normal Y Date of Last Colonoscopy 12/05/2021 Frequency of Cycle (Q days) 0 Most Recent Bone Density Sexually Active? N Menses Monthly N Date of DEXA bone scan Age of first menstrual cycle 11 Date of Last Pap Smear 05/18/2024 Sexual Problems? N LMP Unknown 06/05/2022 N Obstetrics History GPAL:G 4 P 4 0 0 4 Type Value Full Term 4 Living 4 Total 4 Past Encounters Encounter ID Performer Location Encounter Start Date Encounter Closed Date Diagnosis/Indication Diagnosis SNOMED-CT Code Diagnosis ICD10 Code Diagnosis IMO Codes Diagnosis Note [id number] Lincoln Andersen MD [place] [address] [address] 05/23/2025 14:07:27 05/23/2025 14:55:39 Menopausal symptom 55159821 N95.1 Prediabetes 178393576 R7 3.03 [id number] Gynecologi c examination 55461487 Z01.485 [id number] Annual gynecologi [place] exam performed. Patient will [...] any questions please call or email. mammogram- order colon cancer screening - done DEXA scan- na Pap smear-toda y laboratory evaluation - done Health Concerns Section Related Observation LastModified by Organization Detai ls LastModified Time None Recorded Concern Status LastModified by Organization Details LastModified Time None Recorded Payers Encounter Date Sequence Insurance Name Policy Number Policy Ramos Covered Member ID Ramos Member ID Guarantor Name 05/23/2025 2 [facility] (MEDICARE REPLACEMENT/A DVANTAGE - PPO) [id number] Francoise Bowens s [id number] Francoise Damon Notes Date Note Type Note Provider Name and Address Organization Details Recorded Time 05/23/20 25 text/htm l Annual GYNReported by PatientHistoryFor history, patient reportsno gynecologic complaints.Genitourinary symptomsFor urinary symptoms, patient reportsno hematuriaandno incontinence. For vulva, patient reportsno genital lesion. For vagina, patient reportsnormal vaginal discharge.Breast symptomsFor breast, patient reportsno breast painandno breast lump.Endocrine symptomsFor sexual complaints, patient reportsno sexual complaints. For menopausal symptoms, patient reportsno menopausal symptoms.Psychological symptomsFor psychological symptoms, patient reportsno depressionandno anxiety.Preventative measuresFor preventive measures, patient reportsencourage self breast examinationandencourage regular exercise. Lincoln Andersen MD [address], [place], [address], [facility] 05/23/2025 14:51:20 OBGyn Episode No OBEpisode recorded.
--- OUTSIDE RECORDS SUMMARY | 2025-08-15 14:27 | XMS_ITS | Clinical Summary ---
Author Organization [facility] Address [address] [place] [address] Care Team Providers Care Ship Scraper Name Role Phone Unavailable Primary Care Provider Unavailabl e Social History Tobacco Use Types Packs/Day Years Used Date Smoking Tobacco: Never Assessed Comments Unknown Sex and Gender Information Value Date Recorded Sex Assigned at Not on file Legal Sex Female 5:06 PM EST Gender Identity Not on file Sexual Orientation Not on file Plan of Treatment Not on file Medical Devices Not on [place] [id number] MEDICARE
--- OUTSIDE RECORDS SUMMARY | 2025-08-15 14:27 | XMS_ITS | Clinical Summary ---
Author Organization [facility] - NEUROLOGY [facility] Address [address] [place] [address] Phone Care Team Providers Care Kosher Butcher Name Role Phone Hari Macdonald MD Primary Care Provider [phone] Britt Baltazar APRN, CUSTOMER SERVICE SALES CONSULTANT Unavailable [phone] Allergies Active Allergy Reactions Criticality Noted Date [...] needed for Other (migraine). 10 Tablet 3 5 Active ketorolac (TORADOL) 10 MG TabletIndication s:Chronic migraine w/o aura w/o status migrainosus, not intractable Take 1 Tablet by mouth every 4 hours as needed for Moderate or more severe pain (migraine). 10 Tablet 5 Active topiramate (Topamax) 100 MG TabletIndication s:Chronic migraine w/o aura w/o status migrainosus, not intractable Take 1 Tablet by mouth 2 times daily. 60 Tablet 5 Active Hospital, Clinic, or Other Facility Administered Medication Ordered Dose Route Frequency Start Date End Date Status botulinum Toxin Type A (BOTOX) injection 200 UnitsIndications:Chronic migraine w/o aura w/o status migrainosus, not intractable 200 Units IJ ONCE 07/27/2025 07/27/2025 Ended Active Problems No known active problems Encounters Date Type Department Care Team Description 07/27/2025 9:30 AM STAKEHOLDER MANAGER Procedure Visit [facility] Neurology [facility] [address] [place] [address] Marc Blair MD Chronic migraine w/o aura w/o status migrainosus, not intractable (Primary Dx) Discharge Disposition: Discharged to home or Selfcare 07/27/2025 Travel 06/19/2025 Refill [facility] [address] [place] [address] Britt Baltazar APRN, CUSTOMER SERVICE SALES CONSULTANT Medication Refill 06/15/2025 9:30 AM CDT Office Visit [facility] Neurology [facility] [address] [place] [address] Britt Baltazar APRN, CUSTOMER SERVICE SALES CONSULTANT Chronic migraine w/o aura w/o status migrainosus, not intractable (Primary Dx); Hypertension, unspecified type Discharge Disposition: Discharged to home or Selfcare 06/15/2025 Travel 06/14/2025 Refill [facility] [address] [place] [id number] Marc Blair MD from Last 3 Months [...] on file Legal Sex Female 2:06 PM STAKEHOLDER MANAGER Gender Identity Not on file Sexual [...] Care Team (Late st Contact Info) Description 09/07/2025 9:30 AM STAKEHOLDER MANAGER Office Visit [facility] [address] [place] [phone] Katiuska Rainey APRN, OPERATION RESEARCH ANALYST [address] [place] [address] 10/19/2025 9:30 AM STAKEHOLDER MANAGER Procedure Visit [facility] [address] [place] [phone] Marc Blair MD [address] [place] [id number] Health Maintenance Due Date Last Done Comments Hepatitis C Virus (HCV) Screening 1971 Mammogram 1971 TdaP Immunization 1971 Hepatitis B Immunization (1 of 3 - 19+ 3-dose series) 1990 Cologuard 2016 Immunochemical Fecal Occult Blood 2016 Pneumococcal Immunization (5 0+ years) (1 of 1 - PCV) 2021 Respiratory Syncytial Virus (RSV) Immunization (Adult) (1 - Risk 50-74 years 1-dose series) 2021 Zoster Immunization (1 of 2) 2021 Welcome to Medicare (IPPE) G0402 08/23/2024 Influenza Immunization (#1) 2025 SARS-COV-2 Immunization ( - season) 2025 Colonoscopy 01/29/2032 01/28/2022 Colorectal Cancer Screening 01/29/2032 Human Papillomavirus (HPV) Immunization (No Doses Required) Completed Meningococcal Immunization (ACWY) Aged Out No longer eligible based on patient's age to complete this topic Rotavirus Immunization Aged Out No lo nger eligible based on patient's age to complete this topic Procedures Procedure Name Priority Date/Time Associated Diagnosis Comments CHEMODENERV MUSCLE(S) BILAT FACIAL/TRIGEMINAL/CE RV SPINE Routine 07/27/2025 9:30 AM STAKEHOLDER MANAGER Chronic migraine w/o aura w/o status migrainosus, not intractable from Last 3 Months Results * CHEMODENERV MUSCLE(S) BILAT FACIAL/TRIGEMINAL/CERV SPINE (07/27/2025 9:30 AM STAKEHOLDER MANAGER) Narrative Marc Blair MD - 07/27/2025 9:30 AM STAKEHOLDER MANAGER Marc Blair MD 07/27/2025 10:13 AM Francoise presents for administration of botox for treatment of chronic migraines. Frequency of headaches compared to pre-Botox: significantly improved Function since receiving Botox: significantly improved Wasted amount of Botox: 45 Her skin [...] with no complications. us Marc Blair MD [place] - SURGERY Final Result from Last [address] [place] [id number] [facility] MEDICARE C [facility] Care Teams Kosher Butcher Relationship Specialty Start Date End Date Hari Macdonald MD [address] [place] [address] PCP - General Internal Medicine 10/19/24 Britt Baltazar APRN, CUSTOMER SERVICE SALES CONSULTANT [address] [place] [address] Nurse Practitioner Advanced Practice Nurse 06/15/25
--- OUTSIDE RECORDS SUMMARY | 2025-08-15 14:27 | XMS_ITS | Encounter Summary ---
Author Organization [facility] Address [address] [place] [address] Phone Care Team Providers Care Senior Sustainability Advisor Name Role Phone Hari Macdonald MD Primary Care Provider [phone] Britt Baltazar APRN, TRAVERTINE INSTALLER Unavailable [phone] Reason for Visit * Reason Comments Medication Refill Encounter Details Date Type Department Care Team (Late st Contact Info) Description 06/19/2025 Refill [facility] [address] [place] [address] Britt Baltazar, GROCERY CLERK SELLING, TRAVERTINE INSTALLER [address] [place] [address] Medication Refill Social History Tobacco Use Types Packs/Day Years Used Date Smoking Tobacco: Never Smokeless Tobacco: Never Alcohol Use Standard Drinks/Week Comments Yes 0 (1 standard drink = 0.6 oz pur e alcohol) occasional Comments Unknown Sex and Gender Information Value Date Recorded Sex Assigned at Not on file Legal Sex Female 2:06 PM NIGHT COORDINATOR Gender Identity Not on file Sexual Orientation Not on file documented as of this encounter Plan of Treatment Upcoming Encounters Date Type Department Care Team (Late st Contact Info) Description 09/07/2025 9:30 AM NIGHT COORDINATOR Office Visit [facility] [address] [place] [address] Katiuska Rainey, GROCERY CLERK SELLING, [employer]W [employer] FUSER CIRCULAR [address] [place] [address] 10/19/2025 9:30 AM NIGHT COORDINATOR Procedure Visit [facility] [address] [place] [address] Marc Blair MD [address] [place] [phone] documented as of this encounter Visit Diagnoses Diagnosis Chronic migraine w/o aura w/o status migrainosus, not intractable Chronic migraine without aura, without mention of intractable migraine without mention of status migrainosus documented in this encounter Care Teams Senior Sustainability Advisor Relationship Specialty Start Date End Date Hari Macdonald MD [address] [place] [address] PCP - General Internal Medicine 10/19/24 Britt Baltazar, GROCERY CLERK SELLING, TRAVERTINE INSTALLER [address] [place] [address] Nurse Practitioner Advanced Practice Nurse 06/15/25 documented as of this encounter
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
--- OUTSIDE RECORDS SUMMARY | 2025-08-15 14:27 | XMS_ITS | Data Portability ---
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 left shoulder 6213938085 [id number] M75.098 [id number] Lui Courtney MD [facility] [place] [address] [place] [address] 09/06/2024 11:19:39 09/06/2024 11:49:41 Rupture of rotator cuff of right shoulder 3156596638 [id number] M75.249 [id number] Lui Courtney MD [facility] [place] [address] [place] [address] 10/04/2024 08:42:54 10/04/2024 09:50:04 Rupture of rotator cuff of left shoulder 8868276801 [id number] M75.088 [id number] MD [facility] [place] [address] [place] [address] 12/20/2024 08:59:10 12/20/2024 09:23:17 Rupture of rotator cuff of left shoulder 7932641259 [id number] M75.824 [id number] Lui Courtney MD [facility] [place] [address] [place] [address] 02/07/2025 08:55:17 02/07/2025 09:30:32 Rupture of rotator cuff of left shoulder 9560480253 6688484 M75.102 Pain of le ft shoulder joint 9805633980 7846022 M25.723 [id number] Lui Courtney MD [facility] [place] [address] [place] [address] 03/14/2025 15:35:20 03/14/2025 16:37:11 Pain of right shoulder region 6630602962 M25.511 [id number] Lui Courtney MD [facility] [place] [address] [place] [address] 04/25/2025 09:48:33 04/25/2025 10:33:11 Rupture of rotator cuff of right shoulder 8738912466 4546390 M75.101 Pain of ri ght shoulder region 8269366721 M25.511 [id number] Lui Courtney MD [facility] [place] [address] [place] [address] 06/20/2025 10:24:42 06/20/2025 10:55:37 Pain of bilateral shoulder regions 4411968737 28940 M25.511 M25.512 [id number] Pain of ri ght shoulder region 0562643974 M25.511 [id number] Pain of le ft shoulder joint 9740186316 [id number] M25.613 [id number] Lui Courtney MD [facility] [address] [place] [address] 08/01/2025 09:28:44 08/01/2025 10:00:40 Health Concerns Section Related Observation LastModified by Organization Detai ls LastModified Time None Recorded Concern Status LastModified by Organization Details LastModified Time None Recorded Advance Directives Directive N: Payers Insurance Date Sequence Insurance Name Policy Number Policy Ramos Covered Member ID Ramos Member ID Guarantor Name 07/30/2025 1 [facility] (PPO) [id number] Francoise N Ballsilas [id number] Francoise N Ball-Lowell 05/31/2024 3 *SELF PAY* De idra N Ball-Lowell 04/25/2025 2 [employer] [id number] Francoise N Ball-Lenny [id number] Francoise N Ball-Lowell 07/29/2025 2 [facility] (MEDICARE REPLACEMENT/ ADVANTAGE - PPO) [id number] Francoise N Ball-Lenny [id number] Francoise N Ball-Lowell 04/25/2025 [employer] Francoise N Ball-Lowell Francoise N Ball-Lowell OBGyn Episode No OBEpisode recorded.
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
--- OUTSIDE RECORDS SUMMARY | 2025-08-15 14:28 | XMS_ITS | Data Portability ---
Author Organization [facility] [place] Address [address] [place] [address] Care Team Providers Care Continuous Miner Operator Name Role Phone BROUSSARD MIKEY Primary Care Provider [phone] Assessment Encounter Date Assessment Date Assessment LastModified by Organization Details LastModified Time 05/18/2024 05/18/2024 Annual gynecological exam performed. Patient will come back in a year unless there are new symptoms. Not available 05/18/2024 11:39:24 05/23/2025 05/23/2025 Annual gynecological exam performed. Patient will come back in a year unless there are new symptoms. [email or web address] Not available 05/23/2025 14:12:19 Plan of Treatment Reminders Order Date Submit Date Provider Last Modified By Organization Details Last Modified Time Details Appointments None recorded. Lab pap, IG + HR HPV - HPV regardless but if HPV is positive need subtyping 16,18/45 2024 025 [facility] (Lab), [address], [place], [address], 21:12:57 HbA1c (hemoglobin A1c), blood [email or web address] (Lab), [address], [place], [address], 11:47:23 Referral primary care provider referral 2023 024 Stacie Macdonald CAN REFORMING MACHINE OPERATOR, [address] [facility] , [address], [address], 4 10:53:57 Procedures None recorded. Surgeries None recorded. Imaging None recorded. Medication Orders estradiol 1 mg tablet 2024 [facility]296, [address], [place], [place], [id number], 5 14:41:54 Mounjaro 10 mg/0.5 mL subcutaneou s pen injector 2024 025 [facility] #60716, [address], [place], [place], [id number], 5 14:43:18 Mounjaro 10 mg/0.5 mL subcutaneou s pen injector [email or web address] [facility] [address] [facility]68566, [address], [place], [place], [id number], 5 14:21:42 Mounjaro 7.5 mg/0.5 mL subcutaneou s pen injector [email or web address] [facility] [address] [facility] #51856, [address], [place], [place], [id number], 5 14:13:12 estradiol 1 mg tablet 2023 024 [facility] #38974, [address], [place], [place], [id number], 4 14:25:48 Mounjaro 5 mg/0.5 mL subcutaneou s pen injector [email or web address] [place] [address] [facility] #12090, [address], [place], [place], [id number], 5 14:13:14 estradiol 1 mg tablet 2023 024 [facility] #13981, [address] [facility], [place], [place], [id number], 4 10:09:53 Mounjaro 2.5 mg/0.5 mL subcutaneou s pen injector 2023 024 [email or web address] [facility] #86795, [address] [facility], [place], [place], [id number], 4 10:16:48 Patient TargetsNo targets recorded. Patient InstructionsNo instructions recorded. Reason for Referral Primary Care Provider Referr al for Type 2 diabetes mellitus Referring Physician: Sharron Doherty, PRINCIPAL PROCESS ENGINEER, Encounter Date: 01/26/2024 Results Created Date Observation [...] Recei radha: 05/19 0801 First Scree n: Joann ni, Margarita ed, CT Speci men: Scree radha Pap - Image d, Cervi x STATE MENT OF ADEQU ACY: Satis facto ry for evalu ation Trans forma tion zone compo nent absen t ----- ----- ----- ----- ----- ----- ----- ----- ----- ----- ----- ----- ----- ----- ----- ----- ----- ---- FINAL DIAGN OSIS: Negat melvina for Intra epith elial Leselicia n or Cecilia nathaniel (NIL) . Elect ever mauricio leena d [...] is recom bruno d, as clini lennie atkinsed. Not Available [facility] (Lab) [address], [place], [address], 05/25/2024 21:27:46 05/23/20 25 05/23/2025 IMAGE GUIDE D PAP AND HPV REGAR DLESS image guided Pap, HPV regardless of Pap result SEE RESULT S BELOW CASE REPOR T: Cytol ogy Gynec ologi [place] Repor t Case: [id number] Autho parisashankar g Provi lizabeth: Ovidio Andersen MD Colle cted: 05/23 1420 Order ing Locat ion: [place] [facility] Recei radha: 05/24 0106 First Scree n: Margarita Payan ed, CT Speci men: Justo garcia Pap - Image d, Vagin a STATE MENT OF ADEQU ACY: Satis facto ry for evalu ation ----- ----- ----- ----- ----- ----- ----- ----- ----- ----- ----- ----- ----- ----- ----- ----- ----- ---- FINAL DIAGN OSIS: Negat melvina for Intra epith elial Gerber johnson or Cecilia armstrong ([facility]) . Octavio macedo by Margarita Payan ed, CT on 2024 at 2008 CDT ----- ----- ----- ----- ----- ----- [...] as clini lennie warra nted. Not Available [facility] (Lab) [address], [place], [address], 05/25/2025 21:12:57 Result Notes None recorded. Problems Name Problem SNOMED Code Status Onset Date Resolution Date Notes Provider Name and Address Organization Details Recorded Time Diabetes mellitus 29360434 Active 025 Lashon Torres [facility] 16:45:30 Notes:Some problems listed i n Document: #[id number] could not be added to this patient's chart. Please review this document and add these problems to the patient's chart manually as needed. Problem Notes None recorded. Procedures Surgical History Date Name Laterality Status Provider Name and Address Organization Details Recorded Time 05/18/20 24 Date of Last Pap Smear completed Sharmila Johnson [facility] 05/23/2025 14:12:33 06/05/20 22 completed [facility] 12/03/2023 09:49:05 12/06/19 22 Date of Last Colonoscopy completed [facility] 12/03/2023 09:49:05 08/23/19 22 Colonoscopy completed [facility] 12/03/2023 09:57:03 08/23/19 19 Total Hysterectomy completed [facility] 03/20/2022 14:17:44 01/22/20 09 Carpal tunnel surgery completed [facility] 03/20/2022 14:18:04 03/23/19 94 Partial Hysterectomy completed [facility] 03/20/2022 14:17:27 Imaging Results None recorded. Procedure Notes None recorded. Medical Equipment None Reported. Allergies Allergen ID Allergen Name Allergen Category Reaction Reaction Severity Criticality Documentation Date Start Date Code Code System Note Provider Name and Address Organization Details Recorded Time 41023 codeine medicatio n Not available Not available Not available 03/20/2022 7620 RxNorm [facility] 14:05:37 Medications Name Sig Start [...] active Not Available Not Available Not Avai labmichael OneTouch Ultra Test strips USE TO [...] Not Available Not Available Vitals Date Recorded Systolic And Diastolic Provider Name and Address Organization Details Last Updated DateTime 12/03/2023 130/82 mm[Hg] Sharron Doherty REYES- [address], [place], [address], [facility] 12/03/2023 10:26:55 Date Recorded Body height Body mass index (BMI) Body weight Provider Name and Address Organization Details Last Updated DateTime 12/03/2023 160.02 cm 37.7 kg/m2 74179.17 g [facility] 12/03/2023 09:48:02 Date Recorded Body height Body mass index (BMI) Body weight Systolic And Diastolic Provider Name and Address Organization Details Last Updated DateTime 12/29/2023 160.02 cm 34.7 kg/m2 91779.1 g 122/81 mm[Hg] [facility] 12/29/2023 14:16:49 Date Recorded Body height Body mass index (BMI) Body weight Systolic And Diastolic Provider Name and Address Organization Details Last Updated DateTime 01/26/2024 160.02 cm 33.8 kg/m2 55474.14 g 108/78 mm[Hg] [facility] 01/26/2024 10:11:58 Date Recorded Body height Body mass index (BMI) Body weight Systolic And Diastolic Provider Name and Address Organization Details Last Updated DateTime 05/18/2024 160.02 cm 34.9 kg/m2 77641.7 g 131/72 mm[Hg] [facility] 05/18/2024 11:41:23 Date Recorded Body height Body mass index (BMI) Body weight Systolic And Diastolic Provider Name and Address Organization Details Last Updated DateTime 05/23/2025 160.02 cm 37.1 kg/m2 29448.96 g 114/78 mm[Hg] Sharmila Johnson [facility] 05/23/2025 14:19:31 Social History Question Answer Notes LastModified by Organizat ion Details LastModified Time Tobacco Smoking Status Never Smoker Italia Bravo [facility] 03/20/2022 14:16:32 How Many Years Have [...] Or The Highest Degree You Have Received? 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 None Information not available 12/03/2023 Mental Status Question Answer Note LastModified by Organization D etails LastModified Time Do you feel stressed (tense, restless, nervous, or anxious, or unable to sleep at night)? [id number] Information not available 12/03/2023 Family History Relationship [...] ICD10 Code Diagnosis IMO Codes Diagnosis Note [id number] TAYA Hall [place] [address] [address] 03/18/2022 14:16:46 03/18/2022 17:41:43 Left without being seen [id number] 9102 Z53.21 Patient was not seen, arrived too late to be seen [id number] Gemini Burns MD [place] [address] [address] 03/20/2022 13:29:45 03/24/2022 14:38:53 Pelvic floor tension 820822982 R29.898 Pain in pelvis 18973862 R10.2 Constipation 58695049 K5 9.00 [id number] [facility] [address] [address] 12/03/2023 09:38:07 12/03/2023 11:35:16 Menopausal symptom 89422576 N95.1 Today we discussed restarting her estradiol that she tried to d/c a couple months ago.Her vasomotor sx's have returned and so have mood changes.Sh james is agreeable to this recommenda tion. Counseled on medication R/B's, Most common side effects, & use. All questions were answered to patient satisfacti on. Type 2 kizzy betes mellitus 88021687 E11.9 Z68.37 Today we discussed in detail [...] per day).She is walking outside, going to [employer], and is looking into other classes to [...] counseling and review of plan of care. [id number] Sharron Doherty , [facility] [address],[place] [address] 12/29/2023 14:12:15 12/29/2023 14:30:21 Menopausal symptom 35962531 N95.1 Doing exceptiona lly well on her Estradiol 1mgFeels more energy and desire sexuallyAl so feels that vaginal dryness has improved.W ishes to continue this method of therapy.RF sent Type 2 kizzy betes mellitus 62930893 E11.9 Z68.37 Doing exceptiona lly well on [...] counseling and review of plan of care. [id number] Sharron Doherty , [facility] [address],[place] [address] 01/26/2024 09:40:56 01/26/2024 10:45:38 Type 2 diabetes mellitus 02521304 E11.9 Z68.37 Today we discussed her current progress with Mounjaro for DM2/Weight loss.She was unable to move up to 5mg due to shortage at the pharmacy.S he repeated a second month of 2.5mg and will go product picker 5mg at her pharmacy today.We will send Rx for 7.5mg to use in the following month; which she will f/u with Stacie Macdonald, CAN REFORMING MACHINE OPERATOR PCP.She is doing great and her weight-los s is appropriat e for the month.She is getting in more activity since it is nice outside.Be ing conscious of protein intake and shooting for 45-60gms a day.Stephany lunsford sreekanth.S he is having no side effects at this time. No further questions. Rx sentReferr al given Time spent in visit is a total of 22 mins with at least 50% of visit consisting of counseling and review of plan of care. [id number] Lincoln Andersen MD [place] [address] [address] 05/18/2024 11:30:51 05/18/2024 12:08:45 Gynecologic examination 26813217 Z01.419 Annual gynecologi wilton exam performed. Patient [...] y laboratory evaluation - done Diabetes mellitus 905920 09 E11.9 [id number] Lincoln Andersen MD [place] [address] [address] 05/23/2025 14:07:27 05/23/2025 14:55:39 Menopausal symptom 47635323 N95.1 Prediabetes 647808856 R7 3.03 420912 Gynecologi c examination 96520288 Z01.461 [id number] Annual gynecologi wilton exam performed. Patient will [...] Section Related Observation LastModified by Organization Detai LastModified Time None Recorded Concern Status LastModified by Organization Details LastModified Time None Recorded Advance Directives Directive None Recorded Payers Insurance Date Sequence Insurance Name Policy Number Policy Ramos Covered Member ID Ramos Member ID Guarantor Name 07/30/2025 1 [place] [id number] Francoise Ball-Nereida as [id number] Francoise Ball-Lenny 07/30/2025 2 [facility] (MEDICARE REPLACEMENT/ ADVANTAGE - PPO) [id number] Francoise N Ball-Nereida as [id number] Francoise Ball-Lenny 05/23/2025 1 [employer] (POS II) [id number] Francoise Ball-Nereida as [id number] Francoise Ball-Lenny Notes Date Note Type Note Provider Name and Address Organization Details Recorded Time 12/03/19 24 text/htm l MenopauseReported by PatientMenopauseFor onset/timing, patient reports6-12 months,morning,afternoon, andevening. For quality, patient reportsnight sweats,mood changes,hot flashes __, andaffects quality of life. For severity, patient reportsmoderate. For duration, patient reportsintermittent. For context, patient reportsrecently discontinued hormones (tried d/c estradiol 1mg)andrecent gynecologic surgery (total hysterectomy age 27yo per pt). For alleviating factors, patient reportsexercise,increased rest, andeliminating alcohol. For aggravating factors, patient reportspoor sleep,heat, andstress. For associated symptoms, patient reportsno abdominal pain,no pelvic pain,no abnormal bleeding,no vaginal discharge,no dysuria,no dispareunia,no changes in bowel function,no fever,no vaginal dryness,no irritability,no depression,no anxiety,no skin changes,no loss of libido, andno changes in urination. FatigueWeight gainVasomotor sx's-wax/wanemood swings since stopping estradiol 1mg TAYA Sorensen- [address], [place], [address], [place] [facility] 12/03/2023 11:23:09 12/29/19 24 text/htm l ROS as noted in the HPI Here today for medication check of Mounjaro and Estradiol 1mg. Sharron Doherty, [facility] [address], [place], [address], [facility] 12/29/2023 14:30:15 01/26/20 24 text/htm l ROS as noted in the HPI Here today for medication check of mounjaro for DM2/Weight loss. Sharron Doherty, [facility] [address], [place], [address], [facility] 01/26/2024 10:33:03 05/18/20 24 text/htm l Annual GYNReported by PatientHistoryFor history, patient reportsno gynecologic complaints.Genitourinary symptomsFor menstrual cycle, patient reportsnormal menses. For urinary symptoms, patient reportsno hematuriaandno incontinence. For vulva, patient reportsno genital lesion. For vagina, patient reportsnormal vaginal discharge.Breast symptomsFor breast, patient reportsno breast painandno breast lump.Endocrine symptomsFor sexual complaints, patient reportsno sexual complaintsandno pain during intercourse. For menopausal symptoms, patient reportsno menopausal symptomsandnormal vaginal lubrication.Psychological symptomsFor psychological symptoms, patient reportsno depressionandno anxiety.Preventative measuresFor preventive measures, patient reportsencourage self breast examinationandencourage regular exercise. Lincoln Andersen MD [address], [place], [address], [facility] 05/18/2024 12:08:18 05/23/20 25 text/htm l Annual GYNReported by [...] exercise. Lincoln Andersen MD [address], [place], [address], [facility] 05/23/2025 14:51:20 OBGyn Episode Ob Episode Information Episode Created Date Number of Fetuses Patient Bloodtype Patient rh Status Prepregnancy Weight lbs Domestic Partner Domestic Partner Phone Father Name In Store Marketing Representative Status 03/20/20 22 1 CLOSED Fetus Data First Name Last Name Admitted to NICU Weight (g) Sex Living Outcome Pediatric Complications Fetus ID Race Codes Race Delivery Type 3231.84 3 M Full Term 48125 Vaginal Delivery Terrance Calculation Initial Terrance Date [...] Domestic Partner Domestic Partner Phone Father Name In Store Marketing Representative Status 03/20/20 22 1 CLOSED Fetus Data First Name Last Name Admitted to NICU Weight (g) Sex Living Outcome Pediatric Complications Fetus ID Race Codes Race Delivery Type 3912.23 1 F Full Term 19589 Vaginal Delivery Terracne Calculation Initial Terrance Date Initial Exam Date [...] Domestic Partner Domestic Partner Phone Father Name In Store Marketing Representative Status 03/20/20 22 1 CLOSED Fetus Data First Name Last Name Admitted to NICU Weight (g) Sex Living Outcome Pediatric Complications Fetus ID Race Codes Race Delivery Type 3175.14 4 F Full Term [address]5411 Vaginal Delivery Terrance Calculation Initial Terrance Date [...] Domestic Partner Domestic Partner Phone Father Name In Store Marketing Representative Status 03/20/20 22 1 CLOSED Fetus Data First Name Last Name Admitted to NICU Weight (g) Sex Living Outcome Pediatric Complications Fetus ID Race Codes Race Delivery Type 3288.54 2 F Full Term 05676 Vaginal Delivery Terrance Calculation Initial Terrance Date [...]
[2025-08-15 15:09] LABS: Hematocrit 41.9 % (37.0-47.0); Hemoglobin 13.6 g/dL (12.0-15.0); Immature Granulocyte Percent A 0.2 % (0-0.5); Lymphocytes Absolute Auto 2.46 K/mm3 (0.9-3.2); Mean Corpuscular HGB Conc 32.5 g/dl (32-36); Mean Corpuscular Hemoglobin 30.6 pg (26-34); Mean Corpuscular Volume 94.4 fl (80-100); Nucleated Red Blood Cells Absolute Auto 0.000 K/mm3 (0.0-0.012); Nucleated Red Blood Cells Perc 0.0 % (0.0-0.2); Platelet Count Result 336 k/mm3 (150-375); Red Blood Count 4.44 M/mm3 (4.2-5.4); White Blood Count 8.7 K/mm3 (4.5-10.0)
[2025-08-15 15:14] LABS: Alanine Aminotransferase 26 U/L (6-35); Albumin Level 4.4 g/dL (3.5-5.1); Alkaline Phosphatase 118 U/L (38-126); Anion Gap 10 mmol/L (4-12); Aspartate Amino Transferase 30 U/L (14-36); Bilirubin,Total 0.3 mg/dL (0.2-1.3); Blood Urea Nitrogen 9 mg/dL (7-17); Calcium 9.0 mg/dL (8.4-10.2); Carbon Dioxide 22 mmol/L (22-30); Chloride 107 mmol/L (98-107); Cholesterol 227 mg/dL (0-200); Estimated Glomerular Filt Rate 41; Glucose 84 mg/dL (65-110); HDL Direct 80 mg/dL; Potassium 3.7 mmol/L (3.4-5.0); Sodium 139 mmol/L (137-145); Total Protein 7.8 g/dL (6.3-8.2); Triglycerides 161 mg/dL (<150)
[2025-08-15 15:41] LABS: Free T3 2.85 pg/mL (2.71-6.16); Free T4 Free Thyroxine < 0.07 ng/dL (0.78-2.19)
[2025-08-15 15:50] LABS: Thyroid Stimulating Hormone 74.800 uIU/mL (0.465-4.680)
[2025-08-15 15:56] LABS: Hemoglobin A1C 6.1 % (<5.7)
== END 2025-08-15 14:22 | disposition home or self-care (01) ==
PROVIDERS: PCP Internal Medicine; Visit Provider Internal Medicine
DX: R73.09 Other abnormal glucose (principal); I10 Essential (primary) hypertension
CPT/HCPCS: 36415; 80053; 80061; 83036; 84439; 84443; 84481; 85025